=== PATIENT | female | born 1980 | race Caucasian/White ===

== ENCOUNTER 2020-03-10 14:15 | Emergency (ER) | payer BC, SELFPAY ==
[2020-03-10] VITALS (7 sets, daily range): BP systolic 125–142; BP diastolic 80–104; PULSE 88–125; RESP 12–20; TEMP 36.4–36.6; O2SAT 99–100; BMI 24.4
--- NOTE | 2020-03-10 14:27 | CT_ITS ---
STUDY: CT SOFT TISSUE NECK WITH CONTRAST REASON FOR EXAM: Female, 39 years old. SORE THROAT X3 DAYS TONGUE LESIONS RADIATION DOSAGE (If Supplied By Facility): CTDIvol = ( 11.92 ) mGy, DLP = ( 340.93 ) mGycm TECHNIQUE: The patient was scanned in a multi-detector CT scanner. High resolution transaxial imaging was performed following intravenous administration of [id number] 100ML. Sagittal and coronal images were reconstructed. Individualized dose optimization techniques were used for this CT. COMPARISON: None. FINDINGS: Normal bilateral parotid glands. Normal bilateral er physician spaces. Normal bilateral parapharyngeal spaces. Normal bilateral carotid spaces. Normal bilateral sublingual and submandibular glands and spaces. Normal visualized nasopharynx. Normal retropharyngeal space. Normal perivertebral space. Normal visualized bilateral faucial tonsils. Dental hardware causing artifact limiting visualization of the common and oropharynx. Prominent right submandibular node measuring 1.2 cm. There is no demonstrated solid or cystic mass lesion. There is no abnormal contrast enhancement. Normal epiglottis, bilateral vallecula and hypopharynx. The pre-epiglottic and paraglottic adipose spaces are normal. Normal visualized bilateral piriform sinuses, aryepiglottic folds, vocal cords, and arytenoid-cricoid articulations. Normal subglottic trachea. Normal bilateral lobes of the thyroid gland. Normal visualized pulmonary apices. Normal visualized paranasal sinuses. Normal visualized cervical spine. CT/Soft Tissue Neck WITH Contrast IMPRESSION: No acute pathology is noted of the soft tissues of the neck. Limited visualization of the tongue and oropharynx due to artifact from dental hardware. Prominent right submandibular node. Electronically Signed: Eliecer Velázquez DO at 16:13 EST Tel [phone], Service support ,
--- NOTE | 2020-03-10 14:29 | ED.DCSUM_ITS ---
History of Present Illness Chief Complaint: General Illness Informant: Patient Onset: Days Context: Gradual Onset Timing: Continuous Current Severity: Moderate Maximum Severity: Moderate Narrative: The patient is an otherwise healthy 39-year-old female who is on no daily medications who presents to the emergency department from urgent care with multiple complaints. Patient states that she has had UTI type symptoms for the past 3 days. She states that over the past 2 days, she has had a lot of pain in her tongue and has noticed some lesions. She states she had a sore throat and some difficulty swallowing. She does admit to some low-grade fevers. She denies change in voice. She denies trouble laying flat. She states that they did get a urine which was positive for multiple things and she was sent over for further evaluation. She has no history of immunosuppression. She states she is otherwise been in her normal state of health. Prior similar symptoms: No Recent Illness/Hospitalization: No Past Medical History - Allergies and Home Meds Allergies/Adverse Reactions: Allergies No Known Allergies Allergy (Verified 03/10/20 14:20) Primary Care Physician: Dalia Reynoso,Out of [NON-STAFF] - Prior records reviewed: Yes Past Medical History: None Surgical History: noncontributory Smoking Status: Never smoker Review of Systems General: Reports: Fever. Denies: Chills, Sweats Eyes: Denies: Visual changes - bilaterally, Diplopia ENT: Reports: Sore throat. Denies: Rhinorrhea Cardiovascular: Denies: Chest pain, Palpitations Respiratory: Denies: Dyspnea, Cough, Dyspnea on exertion Gastrointestinal: Reports: Nausea. Denies: Abdominal pain, Vomiting, Diarrhea, Melena, Hematochezia Genitourinary: Reports: Dysuria. Denies: Hematuria, Frequency Musculoskeletal: Reports: Arthralgias. Denies: Back pain, Extremity Pain Skin: Denies: Rash, Wounds Neurological: Denies: Headache, Weakness, Numbness Physical Exam Vital Signs/Narrative: Vital Signs Temp Pulse Resp BP Pulse Ox 03/10/20 14:16 97.8 F 125 H 20 H 126/98 H 100 Inital Vital Signs reviewed: Yes General: Well nourished, Well developed, No Acute Distress Head: Normocephalic, Atraumatic Eyes: Perrl, EOMI ENT: Moist mucous membranes, No rhinorrhea, - - Patient does have ecchymotic are a at the left lateral aspect of the tongue base. There is also some ecchymosis in the submental space. There was no definitive abscess. The posterior oropharynx is widely patent. Neck: Supple, Nontender Cardiovascular: Regular rate, Regular rhythm, No murmurs Respiratory: No distress, CTA bilaterally, Chest nontender Abdomen: Soft, Nontender, Nondistended, Normal bowel sounds Back: Nontender, Normal Inspection Extremities: Nontender, No edema Skin: Normal color, No rash Neurological: Alert, Oriented x3, Cranial nerves II-XII grossly intact, Normal Strength, Normal Sensation Psychological: Normal affect, Normal Mood Diagnostic/Tx/Re-eval Clinical Impression(s) from Imaging Studies Soft Tissue Neck CT 03/10/20 14:27 IMPRESSION: No acute pathology is noted of the soft tissues of the neck. Limited visualization of the tongue and oropharynx due to artifact from dental hardware. Prominent right submandibular node. Electronically Signed: Eliecer Velázquez DO at 16:13 EST Tel [phone], Service support , Brain CT 03/10/20 14:46 IMPRESSION: Normal unenhanced CT scan of the brain. Electronically Signed: Eliecer Velázquez DO at 16:06 EST Tel [phone], Service support , Abnormal Lab Results 03/10/20 03/10/20 03/10/20 14:45 14:45 14:45 WBC 4.2 L RBC 4.32 Hgb 12.4 Hct 37.7 MCV 87.3 MCH 28.7 MCHC 32.9 RDW Std Deviation 48.9 H RDW Coeff of Govind 17.1 H Plt Count 88 L MPV 10.4 Immature Gran % (Auto) 0.700 Neut % (Auto) 69.8 Lymph % (Auto) 17.0 L Rains % (Auto) 10.8 H Eos % (Auto) 1.2 Baso % (Auto) 0.5 Absolute Neuts (auto) 3.0 Absolute Lymphs (auto) 0.72 L Nucleated RBC % 0 Platelet Estimate SLT DEC RBC Morphology N CHROM Anisocytosis RARE PT 12.3 INR 1.0 APTT 25.7 Sodium 135 L Potassium 2.3 L* Chloride 96 L Carbon Dioxide 29.0 Anion Gap 10 BUN 17 Creatinine 1.03 H Estim Creat Clear Calc 62.70 Est GFR (MDRD) Af Amer 76 Est GFR (MDRD) Non-Af 63 BUN/Creatinine Ratio 16.5 Glucose 154 H Calcium 9.4 Magnesium Total Bilirubin 1.50 H AST 78 H ALT 46 Alkaline Phosphatase 98 Total Protein 8.0 Albumin 4.3 Globulin 3.7 Albumin/Globulin Ratio 1.2 Serum , Qual Ethyl Alcohol 03/10/20 03/10/20 03/10/20 14:45 14:45 14:45 WBC RBC Hgb Hct MCV MCH MCHC RDW Std Deviation RDW Coeff of Govind Plt Count MPV Immature Gran % (Auto) Neut % (Auto) Lymph % (Auto) Rains % (Auto) Eos % (Auto) Baso % (Auto) Absolute Neuts (auto) Absolute Lymphs (auto) Nucleated RBC % Platelet Estimate RBC Morphology Anisocytosis PT INR APTT Sodium Potassium Chloride Carbon Dioxide Anion Gap BUN Creatinine Estim Creat Clear Calc Est GFR (MDRD) Af Amer Est GFR (MDRD) Non-Af BUN/Creatinine Ratio Glucose Calcium Magnesium 1.6 Total Bilirubin AST ALT Alkaline Phosphatase Total Protein Albumin Globulin Albumin/Globulin Ratio Serum , Qual NEGATIVE Ethyl Alcohol 5.0 - Rhythm Strip Rhythm Strip: Sinus Rhythm Rate: 80 Ectopy: None - EKG Initial EKG Interpretation: Sinus Rhythm, No Acute Injury Pattern, - - Slight U waves consistent with the patient's hypokalemia Prior: No Prior - Medical Decision Making The patient's oromucosa shows some ecchymotic areas. There is an injury to the left lateral tongue that almost looks consistent with tongue biting. She states that she had some bruising on the inside of her cheeks 2 days ago. I did review the patient's prior records through the [facility] system. She was hospitalized in the end of January for suicidal ideation and significant alcohol abuse and withdrawal. The patient was also thrombocytopenic at that point. Clinically, this does seem more consistent with a seizure. I did obtain noncontrast head CT. This was negative for acute process. CT of the soft tissues of the neck was also unremarkable for acute process. Metabolic work-up does demonstrate rather significant hypokalemia. This was replaced both orally and IV. She does have a documented urinary tract infection and I was able to review those results. Patient states she has been sober for at least 3 weeks now. I do suspect that she may have had a seizure, but this was 3 days ago and she has had no further activity. Had a long conversation with the patient. She wants to be discharged and follow-up outpatient. I do feel that this is reasonable. She is not tachycardic, hypotensive, or have any other acute abnormalities aside from her potassium which has been replaced. I will place her on antibiotics for her UTI, replacement potassium, and Pyridium. I also give her outpatient follow-up with neurology. Impression 1. Urinary tract infection 2. Hypokalemia 3. Seizure with tongue injury ED Disposition - Plan for ED Patient: Instructions: ED Seizure New Onset Unknown ..., ED Hypokalemia Prescriptions: Cephalexin [Keflex] 500 mg PO Q6 #40 cap Prescription Printed Potassium Chloride 20 meq PO BID #14 tab.er.prt Prescription Printed Phenazopyridine HCl [Pyridium] 200 mg PO BID PRN PRN #10 tab PRN Reason: Pain Prescription Printed Referrals: [facility] Doctor,Out of [NON-STAFF] - Johnny Lawrence MD [STAFF PHYSICIAN] -
[2020-03-10] MEDS: 0.9% Normal Saline 1,000 ML 1000 ML IV (14:42)
[2020-03-10] MEDS: Morphine 4 MG/ML Syringe IV (14:42)
[2020-03-10] MEDS: Ondansetron 4 MG/2 ML Vial IV (14:42)
--- NOTE | 2020-03-10 14:46 | CT_ITS ---
STUDY: CT BRAIN WITHOUT CONTRAST REASON FOR EXAM: Female, 39 years old. SORE THROAT X3 DAYS TONGUE LESIONS RADIATION DOSAGE (If Supplied By Facility): CTDIvol = ( 60.81 ) mGy, DLP = ( 998.67 ) mGycm TECHNIQUE: Transaxial CT imaging of the brain was performed without administration of intravenous contrast material. Individualized dose optimization techniques were used for this CT. COMPARISON: No relevant priors. FINDINGS: Normal soft tissue structures. Normal calvarium. Normal size ventricles and extra-axial spaces for the patient''s age. Normal white matter tracts of the cerebral hemispheres. Normal basal ganglia and thalami. Normal brainstem. Normal cerebellum. There is no intracranial hemorrhage. There are no findings of an acute ischemic infarction. Normal visualized paranasal sinuses. CT/Brain/Head without Contrast IMPRESSION: Normal unenhanced CT scan of the brain. Electronically Signed: Eliecer Velázquez DO at 16:06 EST Tel [phone], Service support ,
[2020-03-10 15:02] LABS: Absolute Lymphocyte Count 0.72 X10^3/uL (0.83-4.51); Basophil# 0.02 X10^3/uL; Basophil% 0.5 % (0-1); Eosinophil# 0.05 X10^3/uL; Eosinophils% 1.2 % (0-5); Hematocrit 37.7 % (37-47); Hemoglobin 12.4 g/dL (12.0-15.0); Lymphocyte # 0.72 X10^3/ul (4.0); Mean Corp Hgb Conc 32.9 g/dL (32-36); Mean Corpuscular Hgb 28.7 pg (27.0-32.0); Mean Corpuscular Volume 87.3 fL (81-99); Mean Platelet Vol. 10.4 fl (6.2-12.0); Monocyte# 0.46 X10^3/uL; Monocyte% 10.8 % (0-10); NRBC Flagged by Analyzer 0 % (0-5); Neutrophil # 2.96 X10^3/uL (2.7-7.7); Neutrophil % 69.8 % (47-70); POSITIVE COUNT YES; Platelet Count 88 K/mm3 (150-450); RBC Distribution Width CV 17.1 % (11.6-14.6); RBC Distribution Width SD 48.9 fl (35.1-43.9); Red Blood Count 4.32 M/mm3 (4.2-5.4); White Blood Count 4.2 K/mm3 (4.4-11.0)
[2020-03-10 15:06] LABS: Differential Indicated SCAN CRITERIA MET
[2020-03-10 15:08] LABS: Partial Thromboplast Time 25.7 Seconds (24.1-36.2); Prothrombin Time (Protime)PT. 12.3 SECONDS (11.7-14.9)
[2020-03-10 15:23] LABS: ALB/GLOB Ratio 1.2 RATIO (0.9-2.4); AST(SGOT) 78 U/L (15-37); Alanine Aminotransfer ALT/SGPT 46 U/L (13-56); Albumin, Serum 4.3 g/dL (3.2-5.0); Alkaline Phosphatase 98 U/L (45-117); Anion Gap 10 (5-15); BUN 17 mg/dL (7-18); BUN/Creat Ratio 16.5 RATIO (10-20); Calcium,Total 9.4 mg/dL (8.5-10.1); Chloride 96 mmol/L (98-107); Creatinine, Serum 1.03 mg/dL (0.55-1.02); EST Glomerular Filtration Rate 63 mL/min (>60); Est Glom Filt Rate - Afr Amer 76 mL/min (>60); Globulin 3.7 g/dL (2.2-4.2); Glucose 154 mg/dL (74-106); Internal QC Validated? YES +Cl - CLEAR BKGD; Potassium 2.3 mmol/L (3.5-5.1); Pregnancy, Serum, hCG Quali. NEGATIVE Negative; Sodium Level 135 mmol/L (136-145)
--- NOTE | 2020-03-10 15:23 | EKG12_ITS ---
Test Reason : Blood Pressure : / mmHG Vent. Rate : 091 BPM Atrial Rate : 091 BPM P-R Int : 148 ms QRS Dur : 086 ms QT Int : 370 ms P-R-T Axes : 036 027 032 degrees QTc Int : 455 ms Normal sinus rhythm Cannot rule out Anterior infarct , age undetermined Abnormal ECG Confirmed by MICHAEL MINA, ODALYS ([id number]), material expeditor KEYA MCKEON ([id number]) on 03/14/2020 9:50:25 AM Referred By: RICK Confirmed By:ODALYS RODRIGUEZ MD
[2020-03-10 15:32] LABS: Platelet Estimate SLT DEC (ADEQ)
[2020-03-10 15:33] LABS: Anisocytosis RARE; Red Cell Morphology N CHROM NORMAL (NORM C&C)
[2020-03-10] MEDS: Potassium Chloride 10mEq/100mL 10 MEQ/100 ML IV.SOLN. 100 MEQ IV BOLUS (15:42)
[2020-03-10 16:01] LABS: Magnesium 1.6 mg/dL (1.6-2.6)
== END 2020-03-10 17:39 | disposition home or self-care (01) ==
LOC: ED 15:03
PROVIDERS: Emergency Provider Emergency Medicine
DX: N39.0 Urinary tract infection, site not specified (principal); E87.6 Hypokalemia; R56.9 Unspecified convulsions; S09.93XA Unspecified injury of face, initial encounter; X58.XXXA Exposure to other specified factors, initial encounter
CPT/HCPCS: 70450; 70491; 80053; 82077; 83735; 84703; 85025; 85610; 85730; 93005; 96365; 96375; 99285; J7030; J7050; Q9967; J2405

== ENCOUNTER 2021-07-28 14:36 | Inpatient (IN) | payer BC, SELFPAY ==
[2021-07-28] VITALS (8 sets, daily range): BP systolic 102–163; BP diastolic 76–97; PULSE 85–112; RESP 16–18; TEMP 36.2–37.4; O2SAT 93–98; BMI 18.3; BMI 18.6
--- NOTE | 2021-07-28 15:00 | CT_ITS ---
STUDY: CT BRAIN WITHOUT CONTRAST REASON FOR EXAM: Female, 40 years old. seizure RADIATION DOSAGE (If Supplied By Facility): CTDIvol = ( 44.99 ) mGy, DLP = ( 745.49 ) mGycm TECHNIQUE: Transaxial CT imaging of the brain was performed without administration of intravenous contrast material. Individualized dose optimization techniques were used for this CT. COMPARISON: 03/10/2020 FINDINGS: Normal soft tissue structures. Normal calvarium. Normal size ventricles and extra-axial spaces for the patient''s age. Normal white matter tracts of the cerebral hemispheres. Normal basal ganglia and thalami. Normal brainstem. Normal cerebellum. There is no intracranial hemorrhage. There are no findings of an acute ischemic infarction. Normal visualized paranasal sinuses. CT/Brain/Head without Contrast IMPRESSION: Normal unenhanced CT scan of the brain. Electronically Signed: Ed Harp MD at 15:48 EDT ,
--- NOTE | 2021-07-28 15:01 | EDS_ITS ---
HPI History of Present Illness Chief Complaint: Substance Abuse Detail of Chief Complaint: Request for alcohol detox Informant: patient Narrative Narrative: Patient presents requesting help with alcohol detox. She states she is been drinking regularly for the last year and very heavily over the past several days. She drinks vodka. Last drink was about 2 hours ago. She is never been through a formal detox program before. She has tried to detox at home but had significant withdrawal symptoms. She does tell me that she feels that she has been having seizures the past couple of days but does not believe it is secondary to withdrawal. She has no history of seizures. Patient denies any other drug use. [facility] Medical History Alcohol abuse Medical History no medical history no medical history Home Medications NK 07/28/21 [History Last Taken Unknown] Allergy/AdvReac Type Severity Reaction Status Date / Time No Known Allergies Allergy Verified 07/28/21 14:44 Social History Smoking Status: Never smoker ROS ROS ED Constitutional Constitutional ED: Denies chills or fever(s) Eyes Eyes: Denies change in vision or discharge from eye(s) ENT ENT ED: Denies discharge from eye(s), rhinorrhea or sore throat Cardiovascular Cardiovascular: Denies chest pain or palpitations Respiratory/Chest Respiratory/Chest: Denies cough or dyspnea Gastrointestinal Gastrointestinal: Denies abdominal pain, nausea or vomiting Genitourinary Genitourinary ED: Denies difficulty urinating or dysuria Musculoskeletal Musculoskeletal: Denies back pain or extremity pain Integumentary Denies Abrasions or rash Neurologic Neurologic: Reports other Details: Seizures ; Denies headache(s) or weakness Allergic/Immunologic Allergic/Immunologic ED: Denies lip swelling or urticaria EXAM Physical Exam Const Vital Signs: 07/28/21 14:38 07/28/21 15:21 07/28/21 16:00 Temperature 97.2 F L Temperature Source Temporal Pulse Rate 110 H 85 86 Respiratory Rate 16 18 16 Blood Pressure 163/87 H 127/96 H 138/97 H Blood Pressure Mean 112 106 110 Blood Pressure Source Monitor Blood Pressure Position Semi-Fowlers Blood Pressure Location Left Arm Pulse Ox 98 94 93 Oxygen Delivery Method Room Air Room Air Room Air Positive well nourished and well developed General Appearance ED: well developed HEENT Reports moist mucous membranes Eyes PERRL and EOMs intact bilaterally Neck supple Lymph Lymphatic: no lymphadenopathy noted Chest Wall inspection of chest normal and palpation of chest normal Resp normal respiratory effort and clear to auscultation bilaterally Cardio regular rate and regular rhythm GI soft to palpation, non-tender and non-distended Neuro oriented x3 Neuro Narrative: No focal neurologic deficits. Sensorium / Orientation: alert Psych Mood & Affect: anxious Skin Lesions: no lesions Rashes: no rashes MDM MDM MDM Narrative Medical decision making narrative: Patient did sign agreement for detox program. Lab work obtained. Because she is claiming that she is been having seizures last few days head CT is ordered. Lab Data Attestation: I reviewed the patient's lab results. Labs: Laboratory Results - last 24 hr 07/28/21 07/28/21 07/28/21 15:09 15:09 15:09 WBC 3.0 L RBC 4.65 Hgb 11.4 L Hct 37.6 MCV 80.9 L MCH 24.5 L MCHC 30.3 L RDW Std Deviation 56.4 H RDW Coeff of Govind 19.6 H Plt Count 97 L MPV 8.5 Immature Gran % (Auto) 0.300 Neut % (Auto) 48.7 Lymph % (Auto) 40.9 Mathews % (Auto) 9.1 Eos % (Auto) 0.0 Baso % (Auto) 1.0 Absolute Neuts (auto) 1.5 L Absolute Lymphs (auto) 1.22 Nucleated RBC % 0 Platelet Estimate MOD DEC RBC Morphology N CHROM Hypochromasia RARE Anisocytosis RARE Microcytosis RARE Sodium 143 Potassium 3.8 Chloride 104 Carbon Dioxide 27.0 Anion Gap 12 BUN 6 L Creatinine 0.69 Estim Creat Clear Calc 84.51 Est GFR (MDRD) Af Amer 121 Est GFR (MDRD) Non-Af 100 BUN/Creatinine Ratio 8.7 L Glucose 102 Calcium 9.7 Total Bilirubin 0.60 AST 82 H ALT 60 H Alkaline Phosphatase 136 H Total Protein 8.8 H Albumin 4.3 Globulin 4.5 H Albumin/Globulin Ratio 1.0 Serum , Qual Urine Opiates Screen Urine Methadone Screen Ur Barbiturates Screen Ur Phencyclidine Scrn Ur Amphetamines Screen MDMA (Ecstasy) Screen U Benzodiazepines Scrn Urine Cocaine Screen U Cannabinoids Screen Ur Drug Screen Comment Ethyl Alcohol 422.0 H* 07/28/21 07/28/21 15:09 15:12 WBC RBC Hgb Hct MCV MCH MCHC RDW Std Deviation RDW Coeff of Govind Plt Count MPV Immature Gran % (Auto) Neut % (Auto) Lymph % (Auto) Mathews % (Auto) Eos % (Auto) Baso % (Auto) Absolute Neuts (auto) Absolute Lymphs (auto) Nucleated RBC % Platelet Estimate RBC Morphology Hypochromasia Anisocytosis Microcytosis Sodium Potassium Chloride Carbon Dioxide Anion Gap BUN Creatinine Estim Creat Clear Calc Est GFR (MDRD) Af Amer Est GFR (MDRD) Non-Af BUN/Creatinine Ratio Glucose Calcium Total Bilirubin AST ALT Alkaline Phosphatase Total Protein Albumin Globulin Albumin/Globulin Ratio Serum , Qual NEGATIVE Urine Opiates Screen NEGATIVE Urine Methadone Screen NEGATIVE Ur Barbiturates Screen NEGATIVE Ur Phencyclidine Scrn NEGATIVE Ur Amphetamines Screen NEGATIVE MDMA (Ecstasy) Screen NEGATIVE U Benzodiazepines Scrn NEGATIVE Urine Cocaine Screen NEGATIVE U Cannabinoids Screen NEGATIVE Ur Drug Screen Comment Ethyl Alcohol Radiography Diagnostic Testing: Clinical Impression(s) from Imaging Studies Brain CT 07/28/21 15:00 IMPRESSION: Normal unenhanced CT scan of the brain. Electronically Signed: Ed Harp MD at 15:48 EDT , Treatment and Re-Evaluation Narrative: I was asked by nursing to present to the room while we are awaiting test results. Patient was having significant spasms and pulling her knees up to her chest and stretching them out. Heart rate went up to the 140s. She was alert and answering questions throughout the episode and this behavior was not consistent with seizure. Through slow breathing her heart rate did improve. She was given 0.5 mg of Ativan. Lab work is reviewed. Patient has mild anemia with a hemoglobin of 11.4. Chemistry studies reveal an AST of 82 and ALT of 60. Alk phos is 136. EtOH is 422. test is negative and urine tox screen is negative. Head CT is normal. Patient will be discussed with hospitalist for admission. Discharge Plan Triage Chief Complaint: Substance Abuse ED Provider: Sahra Cobb Dx/Rx/DC Orders Clinical Impression: ETOH abuse, Desire for detoxification Prescriptions: No Action NK RF: 0 Referrals: BRADLEY GUTIÉRREZ [Other] Disposition Disposition: Acute Care Hospital [facility]
[2021-07-28 15:29] LABS: Absolute Lymphocyte Count 1.22 X10^3/uL (0.83-4.51); Absolute Neutrophil Count 1.5 X10^3/uL (2.0-7.7); Basophil# 0.03 X10^3/uL; Hematocrit 37.6 % (37-47); Hemoglobin 11.4 g/dL (12.0-15.0); Lymphocyte # 1.22 X10^3/ul (0.83-4.51); Lymphocyte % 40.9 % (19-41); Mean Corp Hgb Conc 30.3 g/dL (32-36); Mean Corpuscular Hgb 24.5 pg (27.0-32.0); Mean Corpuscular Volume 80.9 fL (81-99); Mean Platelet Vol. 8.5 fl (6.2-12.0); Monocyte# 0.27 X10^3/uL; Monocyte% 9.1 % (0-10); NRBC Flagged by Analyzer 0 % (0-5); Neutrophil # 1.45 X10^3/uL (2.7-7.7); Neutrophil % 48.7 % (47-70); POSITIVE COUNT YES; Platelet Count 97 K/mm3 (150-450); RBC Distribution Width CV 19.6 % (11.6-14.6); RBC Distribution Width SD 56.4 fl (35.1-43.9); Red Blood Count 4.65 M/mm3 (4.2-5.4)
[2021-07-28 15:55] LABS: Differential Indicated SCAN CRITERIA MET
[2021-07-28] MEDS: LORazepam 2 MG/ML Syringe 0.5 MG IV (15:58)
[2021-07-28 16:00] LABS: Amphetamine Urine VISTA NEGATIVE (<1000 ng/mL); Barbiturate Urine VISTA NEGATIVE (< 200 ng/mL); Benzodiazepine Urine VISTA NEGATIVE (< 200 ng/mL); Cocaine Urine VISTA NEGATIVE (< 300 ng/mL); Ecstacy Urine VISTA NEGATIVE (< 500 ng/mL); Methadone Urine VISTA NEGATIVE (< 300 ng/mL); PCP Urine VISTA NEGATIVE (< 25 ng/mL); THC Urine VISTA NEGATIVE (< 50 ng/mL); Vista UDS pH Range 5
[2021-07-28 16:01] LABS: Anisocytosis RARE; Hypochromasia RARE; Microcytosis RARE; Platelet Estimate MOD DEC (ADEQ); Red Cell Morphology N CHROM NORMAL (NORM C&C)
[2021-07-28 16:02] LABS: AST(SGOT) 82 U/L (15-37); Alanine Aminotransfer ALT/SGPT 60 U/L (13-56); Albumin, Serum 4.3 g/dL (3.2-5.0); Alkaline Phosphatase 136 U/L (45-117); Anion Gap 12 (5-15); BUN 6 mg/dL (7-18); BUN/Creat Ratio 8.7 RATIO (10-20); Calcium,Total 9.7 mg/dL (8.5-10.1); Chloride 104 mmol/L (98-107); Creatinine, Serum 0.69 mg/dL (0.55-1.02); EST Glomerular Filtration Rate 100 mL/min (>60); Est Glom Filt Rate - Afr Amer 121 mL/min (>60); Estimated Creatinine Clearance 84.51 ml/min; Globulin 4.5 g/dL (2.2-4.2); Glucose 102 mg/dL (74-106); Potassium 3.8 mmol/L (3.5-5.1); Protein, Total 8.8 g/dL (6.4-8.2); Sodium Level 143 mmol/L (136-145)
[2021-07-28 16:09] LABS: Internal QC Validated? YES +Cl - CLEAR BKGD; Pregnancy, Serum, hCG Quali. NEGATIVE Negative
--- NOTE | 2021-07-28 16:27 | CM.ED ---
Social Work Note Reason for referral: Detox SW met with pt. Pt confirms she is here for Detox from Alcohol. Pt states that she drinks fifth of vodka 2-3 times a week. SW placed a call to Treatment Navigator and spoke with Teresa and updated her on referral. Norma Vega [employer], [employer]SE OPERATOR
--- NOTE | 2021-07-28 16:59 | HP.PCM.HOS_ITS ---
HPI - General HPI Narrative MANDEEP MATAMOROS, is a 40 F who presented department was coming hospital on 07/28/2021 for alcohol detox. The patient indicates that she typically had not been a heavy drinker at baseline however over the last week she has been excessively binge drinking drinking probably 2 L of vodka a day. 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 She states she was triggered by recent divorce and is not coping well with depression. She has no suicidal thoughts or ideation. She denies any other medical issues and takes no medications at baseline. She has never been through detox previously. She denies any tobacco abuse or use of any other drugs. Patient's only complaint is some intermittent twitching in her arm. This was noted by the ER physician and she indicated that this did not appear to be consistent with any type of seizure issue. The patient has no other complaints is not currently going through active withdrawal as she is currently intoxicated. Vital signs emergency department show a temperature of 97.2, pulse of 112, blood pressure 102/76, respiratory 16, oxygen saturations are 93% on room air. Her CBC shows a leukopenia with a white count of 3.0, mild anemia with a hemoglobin of 11.4, this is slightly microcytic, platelet count of 97,000. This appears chronic. Her chemistry panel is overall unremarkable other than elevated liver enzymes with an ALT of 60 and AST of 82 consistent with alcohol toxicity. Serum test is negative. Tox screen is negative. Serum alcohol level is 422. A CT of her head was performed and was negative for any acute findings. [facility] Medical History Alcohol abuse Medical History no medical history Home Medications NK 07/28/21 [History Last Taken Unknown] Allergy/AdvReac Type Severity Reaction Status Date / Time No Known Allergies Allergy Verified 07/28/21 14:44 Family History (Updated 07/28/21 @ 17:[address] 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 Smoking Status: Never smoker alcohol intake: current alcohol intake frequency: 3 or more drinks per day Previous attempts at quittin details: Patient is currently drinking approximately 2 L of vodka a day substance use type: does not use ROS Constitutional Constitutional: Denies anorexia, change in weight, chills, fatigue, fever(s), malaise, night sweats, weakness or other Eyes Eyes: Denies blurry vision, change in eye color, change in vision, discharge from eye(s), double vision, erythema, eye pain, loss of vision or other ENT HEENT: Denies abnormal hearing, dysphagia, ear pain, epistaxis, headache(s), hearing loss, nasal congestion, nasal discharge, post nasal drip, sinus pressure, sore throat or other Cardiovascular Cardiovascular: Denies chest pain, claudication, dyspnea on exertion, edema, lightheadedness, orthopnea, palpitations, paroxysmal nocturnal dyspnea, rapid heart rate, syncope or other Respiratory/Chest Respiratory/Chest: Denies cough, dyspnea, excessive phlegm production, hemoptysis, productive cough, shortness of breath at rest, shortness of breath with exertion, wheezing or other Gastrointestinal Gastrointestinal: Denies abdominal pain, coffee ground emesis, constipation, diarrhea, dyspepsia, hematemesis, hematochezia, loose stools, melena, nausea, vomiting or other Genitourinary Genitourinary: Denies burning urination, difficulty urinating, dysuria, hematuria, nocturia, urinary frequency, urinary hesitancy, urinary incontinence, urinary urgency or other Musculoskeletal Musculoskeletal: Denies arthralgias, back pain, joint pain, joint stiffness, joint swelling, myalgias, neck pain or other Neurologic Neurologic: Denies abnormal gait, abnormal speech, confusion, disequilibrium, dizziness, focal weakness, headache(s), numbness, paresthesias, seizure-like activity, seizures, syncope, tingling, tremor(s) or other Psychiatric Psychiatric: Denies anxiety, depression, homicidal ideation, suicidal ideation or other Endocrine Endocrinology: Denies change in body appearance, cold intolerance, excessive sweating, heat intolerance, polydipsia, polyuria or other Hematologic/Lymphatic Hematologic/Lymphatic: Denies anemia, easy bleeding, easy bruising, lymphadenopathy or other Allergic/Immunologic Allergic/Immunologic: Denies rhinitis, hives, eczemia, asthma or other Vital Signs Vital Signs Vital Signs: 07/28/21 14:38 07/28/21 15:21 07/28/21 16:00 Temperature 97.2 F L Temperature Source Temporal Pulse Rate 110 H 85 86 Respiratory Rate 16 18 16 Blood Pressure 163/87 H 127/96 H 138/97 H Blood Pressure Mean 112 106 110 Blood Pressure Source Monitor Blood Pressure Position Semi-Fowlers Blood Pressure Location Left Arm Pulse Ox 98 94 93 Oxygen Delivery Method Room Air Room Air Room Air Weight Weight: 49.895 kg Body Mass Index (BMI) 18.3 Physical Exam Const alert, oriented x3 and no apparent distress Constitutional Narrative: Thin middle-aged white female lying in bed, appears comfortable, nontoxic, patient is considerably intoxicated however she is alert and oriented and able to interact appropriately General Appearance: cooperative HEENT normocephalic, head/scalp atraumatic, hearing grossly normal bilaterally, moist oral mucous membranes and dentition normal Eyes PERRL, EOMs intact bilaterally and conjunctivae normal Eyes Narrative: Bilateral scleral injection with no icterus Neck no lymphadenopathy, supple, no JVD and no carotid bruits Neck Narrative: Trachea midline, no no thyroid enlargement Resp normal respiratory effort, no retractions, no use of accessory muscles and clear to auscultation bilaterally Auscultation: Negative for crackles, rales, rhonchi or wheezes Cardio regular rhythm, S1 normal heart sound, S2 normal heart sound, no murmurs, no rub, no gallops, no clicks and no JVD Cardio Narrative: Mild tachycardia GI normal to inspection, nondistended, normoactive bowel sounds, soft to palpation and non-distended; Negative for hepatosplenomegaly GI Narrative: Mild tenderness right upper quadrant Extremity no clubbing, cyanosis or edema Peripheral Pulses: Yes pulses 2+ throughout Skin no rashes or lesions noted, no wounds, skin turgor normal, no jaundice, no petechiae and no mottling Neuro oriented x3, CN's II-XII intact bilaterally, moves all extremities and no focal motor deficits Neuro Narrative: No sensory deficits Sensorium / Orientation: awake and alert Speech: speech normal Motor Exam: strength 5/5 throughout Psych Psych Narrative: Affect is flat but eye contact is good Mood & Affect: depressed Results Lab / Micro Data Result Diagrams: 07/28/21 15:09 07/28/21 15:09 Labs: Laboratory Results - last 24 hr 07/28/21 15:09: WBC 3.0 L, RBC 4.65, Hgb 11.4 L, Hct 37.6, MCV 80.9 L, MCH 24.5 L, MCHC 30.3 L, RDW Std Deviation 56.4 H, RDW Coeff of Govind 19.6 H, Plt Count 97 L, MPV 8.5, Immature Gran % (Auto) 0.300, Neut % (Auto) 48.7, Lymph % (Auto) 40.9, [place] % (Auto) 9.1, Eos % (Auto) 0.0, Baso % (Auto) 1.0, Absolute Neuts (au to) 1.5 L, Absolute Lymphs (auto) 1.22, Nucleated RBC % 0, Platelet Estimate MOD DEC, RBC Morphology N CHROM, Hypochromasia RARE, Anisocytosis RARE, Microcytosis RARE 07/28/21 15:09: Sodium 143, Potassium 3.8, Chloride 104, Carbon Dioxide 27.0, Anion Gap 12, BUN 6 L, Creatinine 0.69, Estim Creat Clear Calc 84.51, Est GFR (MDRD) Af Amer 121, Est GFR (MDRD) Non-Af 100, BUN/Creatinine Ratio 8.7 L, Glucose 102, Calcium 9.7, Total Bilirubin 0.60, AST 82 H, ALT 60 H, Alkaline Phosphatase 136 H, Total Protein 8.8 H, Albumin 4.3, Globulin 4.5 H, Albumin/Globulin Ratio 1.0 07/28/21 15:09: Ethyl Alcohol 422.0 H* 07/28/21 15:09: Serum , Qual NEGATIVE 07/28/21 15:12: Urine Opiates Screen NEGATIVE, Urine Methadone Screen NEGATIVE, Ur Barbiturates Screen NEGATIVE, Ur Phencyclidine Scrn NEGATIVE, Ur Amphetamines Screen NEGATIVE, MDMA (Ecstasy) Screen NEGATIVE, U Benzodiazepines Scrn NEGATIVE, Urine Cocaine Screen NEGATIVE, U Cannabinoids Screen NEGATIVE, Ur Drug Screen Comment Radiology Impression Brain CT 07/28/21 15:00 IMPRESSION: Normal unenhanced CT scan of the brain. Electronically Signed: Ed Harp MD at 15:48 EDT , Assessment & Plan Assessment/Plan (1) ETOH abuse: (2) Desire for detoxification: (3) Pancytopenia: (4) Alcoholic hepatitis: (5) Acute alcohol intoxication: PLAN: Chronic alcohol abuse with acute intoxication and desire for detoxification -Currently no signs of withdrawal however the patient blood alcohol level is 422 -Is currently drinking -Last drink was 2 hours prior to presentation -Patient has never been through formal detox -Initiate phenobarbital taper -Thiamine and folate -Supportive medications for symptom management -Consultation to 180 Pancytopenia -Suspect related to chronic alcohol use and suppression of marrow and production related to her alcohol use -We will monitor to document stability -Count should improve with alcohol cessation -We will check iron studies since this is a microcytosis Alcoholic hepatitis -Mild transaminase elevations -Repeat CMP in a.m. DVT prophylaxis -Low risk -Early ambulation protocol CODE STATUS -Full code Charges/Coding Visit Charges Inpatient E&M: 34459 Init Hosp L3
[2021-07-28] MEDS: LORazepam 2 MG/ML Syringe IV (18:51)
[2021-07-28] MEDS: Acetaminophen 325 MG Tablet 650 MG PO (18:51)
[2021-07-28] MEDS: Phenobarbital 32.4 MG Tablet 64.8 MG PO ×2 (18:51→23:55)
[2021-07-28] MEDS: Dicyclomine 10 MG Capsule 20 MG PO (18:52)
[2021-07-28 19:14] LABS: Ferritin 37 ng/mL (8-252); Iron 48 ug/dL (50-170); Iron Binding Capacity,Total 470 ug/dL (250-450); PERCENT IRON SATURATION 10.2 % (15.0-55.0)
[2021-07-29 02:56] VITALS: BP 139/100; PULSE 118; RESP 16; TEMP 37.4; O2SAT 96
[2021-07-29] MEDS: LORazepam 2 MG/ML Syringe IV (03:17)
[2021-07-29] MEDS: Phenobarbital 32.4 MG Tablet 64.8 MG PO ×6 (03:18→23:31)
[2021-07-29] MEDS: Gabapentin 300 MG Capsule PO (03:18)
[2021-07-29] MEDS: Acetaminophen 325 MG Tablet 650 MG PO (03:18)
[2021-07-29] MEDS: 0.9% Saline Lock 10 ML Syringe IV ×3 (03:21→15:15)
[2021-07-29 05:41] LABS: Absolute Lymphocyte Count 0.59 X10^3/uL (0.83-4.51); Absolute Neutrophil Count 3.4 X10^3/uL (2.0-7.7); Basophil# 0.02 X10^3/uL; Basophil% 0.5 % (0-1); Differential Indicated SCAN CRITERIA MET; Eosinophil# 0.01 X10^3/uL; Eosinophils% 0.2 % (0-5); Hematocrit 32.2 % (37-47); Hemoglobin 9.9 g/dL (12.0-15.0); Lymphocyte # 0.59 X10^3/ul (0.83-4.51); Lymphocyte % 13.6 % (19-41); Mean Corp Hgb Conc 30.7 g/dL (32-36); Mean Corpuscular Hgb 24.6 pg (27.0-32.0); Mean Corpuscular Volume 80.1 fL (81-99); Mean Platelet Vol. 9.6 fl (6.2-12.0); Monocyte% 6.9 % (0-10); NRBC Flagged by Analyzer 0 % (0-5); Neutrophil # 3.38 X10^3/uL (2.7-7.7); Neutrophil % 78.1 % (47-70); POSITIVE COUNT YES; POSITIVE DIFFERENTIAL YES; Platelet Count 57 K/mm3 (150-450); RBC Distribution Width CV 18.7 % (11.6-14.6); RBC Distribution Width SD 54.5 fl (35.1-43.9); Red Blood Count 4.02 M/mm3 (4.2-5.4); White Blood Count 4.3 K/mm3 (4.4-11.0)
[2021-07-29 06:07] LABS: ALB/GLOB Ratio 0.9 RATIO (0.9-2.4); AST(SGOT) 61 U/L (15-37); Alanine Aminotransfer ALT/SGPT 47 U/L (13-56); Albumin, Serum 3.5 g/dL (3.2-5.0); Alkaline Phosphatase 104 U/L (45-117); Anion Gap 7 (5-15); BUN 9 mg/dL (7-18); BUN/Creat Ratio 15.7 RATIO (10-20); Chloride 99 mmol/L (98-107); Creatinine, Serum 0.57 mg/dL (0.55-1.02); EST Glomerular Filtration Rate 123 mL/min (>60); Est Glom Filt Rate - Afr Amer 148 mL/min (>60); Estimated Creatinine Clearance 104.16 ml/min; Glucose 102 mg/dL (74-106); Potassium 3.6 mmol/L (3.5-5.1); Protein, Total 7.5 g/dL (6.4-8.2); Sodium Level 134 mmol/L (136-145); Thyroid Stim Hormone (TSH) 0.94 uIU/mL (0.358-3.74)
[2021-07-29 06:10] LABS: Differential Comment SCANNED; Platelet Estimate MKD DEC (ADEQ)
[2021-07-29 06:59] VITALS: BP 142/98; PULSE 117; RESP 18; TEMP 36.9; O2SAT 97
[2021-07-29] MEDS: hydrOXYzine PAM 25 MG Capsule 50 MG PO ×2 (07:05→18:19)
--- NOTE | 2021-07-29 10:40 | PN.HOSP_ITS ---
Subjective Subjective Patient reports she is feeling better this morning than yesterday. She is aware she has baseline thrombocytopenia and indicates this is never been worked up in the past. She does complain of some tremor but denies any nausea vomiting or diarrhea. Patient indicates she has pretty heavy periods and this does explain why she is probably iron deficient. I did discuss IV iron administration and the plan we will discharge her on oral iron. Objective Data Objective Data Vital Signs: Vital Signs Temp Pulse Resp BP Pulse Ox 98.4 F 117 H 18 142/98 H 97 07/29/21 06:59 07/29/21 06:59 07/29/21 06:59 07/29/21 06:59 07/29/21 06:59 Oxygen Delivery Method Room Air Weight: 50.8 kg Body Mass Index (BMI) 18.6 Medical Nutrition Assessment Dietitian: Malnutrition Criteria Met Start: 07/29/21 09:45 Freq: Status: Active Protocol: Document 07/29/21 09:46 AG (Rec: 07/29/21 09:46 [id number]) Nutrition Malnutrition Evidence of Malnutrition Exists Yes Malnutrition (severe): Social/Behavioral/ Environmental Evidenced By Suboptimal Energy Intake ( Severe),Weight Loss (Severe) Clinical Problem Chronic Disease or Condition Related Malnutrition Etiology severe malnutrition in context of social/behavioral circumstances r/t inadequate protein-energy intake d/t depression, alcohol abuse Signs/Symptoms as evidenced by estimated PO intake meeting <75% of estimated energy needs >3 months; reported unintentional wt loss of 60#/34% x 6 months Status Active Problem Recommendation Dietitian Recommendations/Changes continue regular diet as tolerated; will add 120mL ensure compact TID w/ meals for addtional calories/protein if consumed. Lab / Micro Data Result Diagrams: 07/29/21 07:42 07/29/21 05:32 Labs: Laboratory Results - last 24 hr 07/28/21 15:09: WBC 3.0 L, RBC 4.65, Hgb 11.4 L, Hct 37.6, MCV 80.9 L, MCH 24.5 L, MCHC 30.3 L, RDW Std Deviation 56.4 H, RDW Coeff of Govind 19.6 H, Plt Count 97 L, MPV 8.5, Immature Gran % (Auto) 0.300, Neut % (Auto) 48.7, Lymph % (Auto) 40.9, [place] % (Auto) 9.1, Eos % (Auto) 0.0, Baso % (Auto) 1.0, Absolute Neuts (auto) 1.5 L, Absolute Lymphs (auto) 1.22, Nucleated RBC % 0, Platelet Estimate MOD DEC, RBC Morphology N CHROM, Hypochromasia RARE, Anisocytosis RARE, Microcytosis RARE 07/28/21 15:09: Sodium 143, Potassium 3.8, Chloride 104, Carbon Dioxide 27.0, Anion Gap 12, BUN 6 L, Creatinine 0.69, Estim Creat Clear Calc 84.51, Est GFR (MDRD) Af Amer 121, Est GFR (MDRD) Non-Af 100, BUN/Creatinine Ratio 8.7 L, Glucose 102, Calcium 9.7, Total Bilirubin 0.60, AST 82 H, ALT 60 H, Alkaline Phosphatase 136 H, Total Protein 8.8 H, Albumin 4.3, Globulin 4.5 H, Albumin/Globulin Ratio 1.0 07/28/21 15:09: Ethyl Alcohol 422.0 H* 07/28/21 15:09: Serum , Qual NEGATIVE 07/28/21 15:09: Iron 48 L, TIBC 470 H, Iron Saturation 10.2 L, Ferritin 37 07/28/21 15:12: Urine Opiates Screen NEGATIVE, Urine Methadone Screen NEGATIVE, Ur Barbiturates Screen NEGATIVE, Ur Phencyclidine Scrn NEGATIVE, Ur Amphetamines Screen NEGATIVE, MDMA (Ecstasy) Screen NEGATIVE, U Benzodiazepines Scrn NEGATIVE, Urine Cocaine Screen NEGATIVE, U Cannabinoids Screen NEGATIVE, Ur Drug Screen Comment 07/29/21 05:32: WBC 4.3 L, RBC 4.02 L, Hgb 9.9 L, Hct 32.2 L, MCV 80.1 L, MCH 24.6 L, MCHC 30.7 L, RDW Std Deviation 54.5 H, RDW Coeff of Govind 18.7 H, Plt Count 57 L, MPV 9.6, Immature Gran % (Auto) 0.700, Neut % (Auto) 78.1 H, Lymph % (Auto) 13.6 L, [place] % (Auto) 6.9, Eos % (Auto) 0.2, Baso % (Auto) 0.5, Absolute Neuts (auto) 3.4, Absolute Lymphs (auto) 0.59 L, Nucleated RBC % 0, Differential Comment SCANNED, Diff Path Review May foll, Platelet Estimate MKD 07/29/21 05:32: Sodium 134 L, Potassium 3.6, Chloride 99, Carbon Dioxide 28.0, Anion Gap 7, BUN 9, Creatinine 0.57, Estim Creat Clear Calc 104.16, Est GFR (MDRD) Af Amer 148, Est GFR (MDRD) Non-Af 123, BUN/Creatinine Ratio 15.7, Glucose 102, Calcium 9.0, Total Bilirubin 1.00, AST 61 H, ALT 47, Alkaline Phosphatase 104, Total Protein 7.5, Albumin 3.5, Globulin 4.0, Albumin/Globulin Ratio 0.9, TSH 0.94 07/29/21 07:42: Hgb 10.0 L Radiography Diagnostic Testing: Radiology Impression Brain CT 07/28/21 15:00 IMPRESSION: Normal unenhanced CT scan of the brain. Electronically Signed: Ed Harp MD at 15:48 EDT , Physical Exam Const alert, oriented x3 and no apparent distress Constitutional Narrative: Thin middle-aged white female lying in bed, appears comfortable, nontoxic, sitting up, has just eaten breakfast, appears comfortable nontoxic General Appearance: cooperative Exam Limitations: no limitations Nutritional Appearance: thin HEENT normocephalic, head/scalp atraumatic, hearing grossly normal bilaterally, moist oral mucous membranes and dentition normal Head and Scalp: normocephalic Resp normal respiratory effort, no retractions, no use of accessory muscles and clear to auscultation bilaterally Auscultation: Negative for crackles, rales, rhonchi or wheezes Cardio regular rhythm, S1 normal heart sound, S2 normal heart sound, no murmurs, no rub, no gallops, no clicks and no JVD Cardio Narrative: Remains mildly tachycardic GI normal to inspection, nondistended, normoactive bowel sounds, soft to palpation and non-distended; Negative for hepatosplenomegaly GI Narrative: Mild tenderness right upper quadrant Extremity no clubbing, cyanosis or edema Peripheral Pulses: Yes pulses 2+ throughout Neuro oriented x3, moves all extremities and no focal motor deficits Sensorium / Orientation: awake and alert Speech: speech normal Assessment & Plan Assessment/Plan (1) ETOH abuse: (2) Desire for detoxification: (3) Pancytopenia: (4) Alcoholic hepatitis: (5) Iron deficiency anemia: PLAN: Chronic alcohol abuse with acute intoxication and desire for detoxification -blood alcohol level was 422 on admission -Last drink was 2 hours prior to presentation -Patient has never been through formal detox -Cont Phenobarb -Thiamine and folate -Supportive medications for symptom management -180 eval is pending Pancytopenia -Suspect related to chronic alcohol use and suppression of marrow and production related to her alcohol use -We will monitor to document stability -Counts should improve with alcohol cessation -Patient indicates she is aware she has chronic thrombocytopenia but this has never had a work-up in the past -No acute need for work-up however I do recommend she follow-up with hematology at discharge Iron deficiency anemia -Patient indicates she has heavy periods -IV iron initiated -We will discharge with p.o. iron supplementation -Considerable drop in hemoglobin since admission however repeat was stable -Heme follow up at discharge Alcoholic hepatitis -resolved DVT prophylaxis -Low risk -Early ambulation protocol CODE STATUS -Full code Charges/Coding Visit Charges Inpatient E&M: 99576 Subs Hosp L2
[2021-07-29 10:53] VITALS: BP 123/95; PULSE 118; RESP 16; TEMP 36.9; O2SAT 99
[2021-07-29] MEDS: Thiamine Hydrochloride 100 MG Tablet PO (10:55)
[2021-07-29] MEDS: Folic Acid 1 MG Tablet PO (10:55)
--- NOTE | 2021-07-29 12:56 | ADDICTION ---
This worker met with pt to complete ASAM, MSE, AUDIT, DUDIT and D/C planning. Pt identifies problem behavior and agrees to follow up with [facility] in [place]. She did not report a need for transportation upon d/c.
[2021-07-29 15:13] VITALS: BP 137/101; PULSE 105; RESP 16; TEMP 37.2; O2SAT 95
[2021-07-29 18:16] VITALS: BP 131/103; PULSE 107; RESP 16; TEMP 37.4; O2SAT 100
[2021-07-29] MEDS: traZODone 100 MG Tablet PO (23:31)
[2021-07-29 23:42] VITALS: BP 138/94; PULSE 110; RESP 18; TEMP 36.9; O2SAT 99
[2021-07-30 03:00] VITALS: BP 122/80; PULSE 114; RESP 18; TEMP 36.9; O2SAT 99
[2021-07-30] MEDS: hydrOXYzine PAM 25 MG Capsule 50 MG PO ×4 (03:16→22:50)
[2021-07-30] MEDS: Phenobarbital 32.4 MG Tablet 64.8 MG PO ×6 (03:16→22:49)
[2021-07-30 07:00] VITALS: BP 118/83; PULSE 106; RESP 18; TEMP 37; O2SAT 98
[2021-07-30] MEDS: Thiamine Hydrochloride 100 MG Tablet PO (08:37)
[2021-07-30] MEDS: Folic Acid 1 MG Tablet PO (08:37)
[2021-07-30 09:59] VITALS: BP 126/105; PULSE 65; RESP 18; TEMP 37; O2SAT 100
[2021-07-30] MEDS: LORazepam 1 MG Tablet 2 MG PO (11:26)
--- NOTE | 2021-07-30 12:34 | PCM.PN.HOSP ---
Subjective Subjective Patient is feeling much better today. Still fine tremor but nausea has resolved. Is hoping to be able to go home tomorrow if she feels well enough. Has had no issues with IV iron. Objective Data Objective Data Vital Signs: Vital Signs Temp Pulse Resp BP Pulse Ox 98.6 F 65 18 126/105 H 100 07/30/21 09:59 07/30/21 09:59 07/30/21 09:59 07/30/21 09:59 07/30/21 09:59 Oxygen Delivery Method Room Air Weight: 50.8 kg Body Mass Index (BMI) 18.6 Intake & Output: Intake and Output for Last 24 Hours 07/28/21 07/29/21 07/30/21 23:59 23:59 23:59 Intake Total 1178 / 1178 1120 / 1120 Balance 1178 / 1178 1120 / 1120 Medical Nutrition Assessment Dietitian: Malnutrition Criteria Met Start: 07/29/21 09:45 Freq: Status: Active Protocol: Document 07/29/21 09:46 AG (Rec: 07/29/21 09:46 AG [id number]) Nutrition Malnutrition Evidence of Malnutrition Exists Yes Malnutrition (severe): Social/Behavioral/ Environmental Evidenced By Suboptimal Energy Intake ( Severe),Weight Loss (Severe) Clinical Problem Chronic Disease or Condition Related Malnutrition Etiology severe malnutrition in context of social/behavioral circumstances r/t inadequate protein-energy intake d/t depression, alcohol abuse Signs/Symptoms as evidenced by estimated PO intake meeting <75% of estimated energy needs >3 months; reported unintentional wt loss of 60#/34% x 6 months Status Active Problem Recommendation Dietitian Recommendations/Changes continue regular diet as tolerated; will add 120mL ensure compact TID w/ meals for addtional calories/protein if consumed. 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, patient appears comfortable nontoxic, mood is much improved General Appearance: cooperative Exam Limitations: no limitations Nutritional Appearance: thin HEENT normocephalic, head/scalp atraumatic, hearing grossly normal bilaterally, moist oral mucous membranes and dentition normal Head and Scalp: normocephalic Resp normal respiratory effort, no retractions, no use of accessory muscles and clear to auscultation bilaterally Auscultation: Negative for crackles, rales, rhonchi or wheezes Cardio regular rhythm, S1 normal heart sound, S2 normal heart sound, no murmurs, no rub, no gallops, no clicks and no JVD Cardio Narrative: Remains mildly tachycardic GI normal to inspection, nondistended, normoactive bowel sounds, soft to palpation, non-tender and non-distended; Negative for hepatosplenomegaly Extremity no clubbing, cyanosis or edema Peripheral Pulses: Yes pulses 2+ throughout Neuro oriented x3, moves all extremities and no focal motor deficits Neuro Narrative: No sensory deficits Sensorium / Orientation: awake and alert Speech: speech normal Assessment & Plan Assessment/Plan (1) ETOH abuse: (2) Desire for detoxification: (3) Pancytopenia: (4) Alcoholic hepatitis: (5) Iron deficiency anemia: PLAN: Chronic alcohol abuse with acute intoxication and desire for detoxification -blood alcohol level was 422 on admission -Last drink was 2 hours prior to presentation -Patient has never been through formal detox -Cont Phenobarb -Thiamine and folate -Supportive medications for symptom management -180 eval is complete and plan is for outpatient follow-up at 180 in [place] after discharge -Dissipate discharge 07/31/2021 Pancytopenia -Suspect related to chronic alcohol use and suppression of marrow and production related to her alcohol use -We will monitor to document stability -Counts should improve with alcohol cessation -Patient indicates she is aware she has chronic thrombocytopenia but this has never had a work-up in the past -No acute need for work-up however I do recommend she follow-up with hematology at discharge--> this has been discussed with the patient and referral has been made on discharge paperwork Iron deficiency anemia -Patient indicates she has heavy periods -IV iron initiated day 2 of 3 -We will discharge with p.o. iron supplementation--> prescription has been sent -Considerable drop in hemoglobin since admission however repeat was stable -CBC in a.m. -Heme follow up at discharge Alcoholic hepatitis -resolved DVT prophylaxis -Low risk -Early ambulation protocol CODE STATUS -Full code Charges/Coding Visit Charges Inpatient E&M: 44826 Subs Hosp L2
[2021-07-30 14:43] VITALS: BP 105/73; PULSE 112; RESP 18; TEMP 36.5; O2SAT 98
[2021-07-30] MEDS: Acetaminophen 325 MG Tablet 650 MG PO (14:49)
[2021-07-31 03:30] VITALS: BP 115/83; PULSE 106; RESP 16; TEMP 36.8; O2SAT 97
[2021-07-31] MEDS: Phenobarbital 32.4 MG Tablet 64.8 MG PO ×3 (03:49→14:31)
[2021-07-31] MEDS: hydrOXYzine PAM 25 MG Capsule 50 MG PO ×2 (03:50→12:26)
[2021-07-31 06:18] LABS: Absolute Lymphocyte Count 0.61 X10^3/uL (0.83-4.51); Absolute Neutrophil Count 2.7 X10^3/uL (2.0-7.7); Basophil# 0.03 X10^3/uL; Basophil% 0.8 % (0-1); Eosinophil# 0.09 X10^3/uL; Eosinophils% 2.4 % (0-5); Hematocrit 30.2 % (37-47); Hemoglobin 9.2 g/dL (12.0-15.0); Lymphocyte # 0.61 X10^3/ul (0.83-4.51); Lymphocyte % 16.5 % (19-41); Mean Corp Hgb Conc 30.5 g/dL (32-36); Mean Corpuscular Hgb 24.9 pg (27.0-32.0); Mean Corpuscular Volume 81.6 fL (81-99); Mean Platelet Vol. 11.1 fl (6.2-12.0); Monocyte# 0.21 X10^3/uL; Monocyte% 5.7 % (0-10); NRBC Flagged by Analyzer 0.5 % (0-5); Neutrophil # 2.69 X10^3/uL (2.7-7.7); POSITIVE COUNT YES; RBC Distribution Width CV 18.8 % (11.6-14.6); RBC Distribution Width SD 55.3 fl (35.1-43.9); White Blood Count 3.7 K/mm3 (4.4-11.0)
[2021-07-31 06:27] LABS: Differential Indicated SCAN CRITERIA MET; Platelet Count 46 K/mm3 (150-450)
[2021-07-31 06:47] LABS: Anisocytosis RARE; Differential Comment SCANNED; Hypochromasia 1+; Microcytosis RARE; Platelet Estimate MKD DEC (ADEQ)
--- NOTE | 2021-07-31 07:22 | PCM.DC ---
Discharge Instructions Diet Discharge Diet: No restrictions Activity Discharge Activity: May Not Drive Weight Bearing Status: Weight bearing as tolerated Dressing / Incision Call your doctor if you observe: Fever of 101 or Higher, Coldness, Increased Pain, Numbness or Tingling, Change in Color, Inability to urinate, Inability to have a bowel movement, Using more than 1 pad per hour, Shortness of breath, Dizziness, Fainting spells, Swelling in the ankles, Chest pain, Prolonged hiccupping, Increased palpitations (irregular heartbeat), Calf discomfort and Uncontrolled pain Follow Up Care Test Results: Test results from this visit will be discussed in further detail at your follow-up appointment, if applicable. Discharge Plan Admission Admit Date/Time: 07/28/21 16:55 Primary Reason for Your Visit: Acute alcohol withdrawal syndrome, chronic iron deficiency anemia Attending Provider: Cuauhtemoc Ware [employer] Providers: Vianey Charles Discharge Orders/Prescriptions Prescriptions: New ferrous sulfate 325 mg (65 mg iron) tablet 325 mg PO BID Qty: 60 RF: 0 ascorbic acid (vitamin C) 500 mg tablet 500 mg PO BID Qty: 60 RF: 2 thiamine HCl (vitamin B1) [Vitamin B-1] 100 mg Tablet 100 mg PO DAILYCM Qty: 30 RF: 2 folic acid 1 mg Tablet 1 mg PO 0800 Qty: 30 RF: 2 hydroxyzine HCl 25 mg tablet 25 mg PO TID PRN (Reason: anxiety) Qty: 30 RF: 0 No Action NK RF: 0 Referrals / Follow Up: BRADLEY GUTIÉRREZ [Other] - Within 2 Weeks BRADLEY GUTIÉRREZ [Other] Los Hernandez DO [STAFF PHYSICIAN] - Within 1 Month (chronic thrombocytopenia) Carmelina Rodriguez MD [STAFF PHYSICIAN] - Within 2 Weeks (for menorrhagia) Disposition Disposition (needs filled in before D/C Order can be placed): Home, Self Care
[2021-07-31 08:00] VITALS: BP 111/76; PULSE 92; RESP 16; TEMP 36.8; O2SAT 99
[2021-07-31] MEDS: Thiamine Hydrochloride 100 MG Tablet PO (08:07)
[2021-07-31] MEDS: Gabapentin 300 MG Capsule PO (08:07)
[2021-07-31] MEDS: Folic Acid 1 MG Tablet PO (08:07)
--- NOTE | 2021-07-31 08:42 | DS.PCM_ITS ---
Providers Date of Admission: 07/28/21 Date of Discharge: 07/31/21 Primary Care Physician: BRADLEY CANCHOLA Reason For Visit: etoh detox Diagnosis Discharge Diagnosis (1) ETOH abuse: Status: Acute Code(s): F10.10 - Alcohol abuse, uncomplicated (2) Desire for detoxification: Status: Acute (3) Pancytopenia: Status: Acute Code(s): D61.818 - Other pancytopenia (4) Alcoholic hepatitis: Status: Acute Code(s): K70.10 - Alcoholic hepatitis without ascites (5) Iron deficiency anemia: Status: Acute Code(s): D50.9 - Iron deficiency anemia, unspecified Medications at Discharge Home Medications ferrous sulfate 325 mg PO BID #60 tab 07/29/21 ascorbic acid (vitamin C) 500 mg PO BID #60 tab 07/31/21 folic acid 1 mg PO 0800 #30 tab 07/31/21 hydroxyzine HCl 25 mg PO TID PRN #30 tab 07/31/21 omeprazole 40 mg PO DAILY #60 tab 07/31/21 thiamine HCl (vitamin B1) [Vitamin B-1] 100 mg PO DAILYCM #30 tab 07/31/21 Hospital Course Summary of Care Provided Hospital Course: This 39-year-old female was admitted for symptoms of alcohol withdrawal. She expressed desire for alcohol detoxification. For the last 1 week before admission she has been excessively binge drinking about 2 L of vodka per day. She has anxiety triggered from her recent divorce and mild depression but no suicidal thoughts or ideation. [facility] She did not had signs of withdrawal except for mild anxiety. It was treated with phenobarbital based other adjunctive medications including thiamine folic acid. Moderate eval was completed and patient has follow-up in [place] after discharge Patient also found to have pancytopenia most likely due to pulmonary suppression from chronic alcohol abuse. She has chronic iron deficiency anemia pretreated from heavy menstrual periods, menorrhagia she was treated with IV iron and discharged on oral iron and vitamin C along with thiamine and folic acid. She also requested prescription for anxiety and hydroxyzine prescription was given. All prescriptions were sent to patient's pharmacy. Patient other diagnoses are acute on chronic alcoholic hepatitis, acute hepatitis resolved. Mild anxiety. Acute adjustment from recent divorce. Discharge medication reconciliation done. Discharge follow-up instructions completed. Discharge process discussed with the patient and all questions were answered to patient's satisfaction. Total time spent, exact 35 minutes on discharge meds reconciliation, examination, coordination of care with nurses and ancillary staff, review of imaging and blood test and discussion with the patient on follow-up instr uctions. Physical Exam Narrative Seen and examined Patient complains of mild upper abdominal pain in epigastric region. She has symptoms of anxiety and she states that drives her to relapse. She has history of chronic alcohol use and dependence. Physical exam General: Alert, Oriented x3, Cooperative HEENT: Atraumatic, PERRLA, EOMI, Normocephalic Oral: No Gingival or Mucosal Lesions/ Ulcerations Neck: Supple, No JVD, Negative Carotid Bruits Lungs: Air entry equal in bilateral lung bases. No crepitation/rhonchi Cardiovascular: Regular rate, Regular Rhythm, Normal S1, Normal S2, No murmurs Abdomen: Bowel Sounds Present, Soft, Non Tender, Non-Distended : No renal angle tenderness. No suprapubic tenderness. Extremities: No edema, Capillary Refill Less than 3 Seconds Skin: No rashes, No breakdown Musculoskeletal: No Tenderness to Palpation of Joints or Extremities Neurological: Cranial nerves II-XII grossly intact, DTR 2+/4 and Symmetrical, Neuro grossly intact Psych/Mental Status: Anxiety. Medical Records Data Medical Nutrition Assessment Dietitian: Malnutrition Criteria Met Start: 07/29/21 09:45 Freq: Status: Active Protocol: Document 07/29/21 09:46 (Rec: 07/29/21 09:46 AG [id number]) Nutrition Malnutrition Evidence of Malnutrition Exists Yes Malnutrition (severe): Social/Behavioral/ Environmental Evidenced By Suboptimal Energy Intake ( Severe),Weight Loss (Severe) Clinical Problem Chronic Disease or Condition Related Malnutrition Etiology severe malnutrition in context of social/behavioral circumstances r/t inadequate protein-energy intake d/t depression, alcohol abuse Signs/Symptoms as evidenced by estimated PO intake meeting <75% of estimated energy needs >3 months; reported unintentional wt loss of 60#/34% x 6 months Status Active Problem Recommendation Dietitian Recommendations/Changes continue regular diet as tolerated; will add 120mL ensure compact TID w/ meals for addtional calories/protein if consumed. Weight / BMI Weight Weight: 111 lb 15.917 oz Body Mass Index (BMI) 18.6 ABG / Lab / Microbiology Data Result Diagrams: 07/31/21 05:40 07/29/21 05:32 Laboratory: Laboratory Results - last 24 hr 07/31/21 05:40: WBC 3.7 L, RBC 3.70 L, Hgb 9.2 L, Hct 30.2 L, MCV 81.6, MCH 24.9 L, MCHC 30.5 L, RDW Std Deviation 55.3 H, RDW Coeff of Govind 18.8 H, Plt Count 46 L*, MPV 11.1, Immature Gran % (Auto) 1.600 H, Neut % (Auto) 73.0 H, Lymph % (Auto) 16.5 L, [place] % (Auto) 5.7, Eos % (Auto) 2.4, Baso % (Auto) 0.8, Absolute Neuts (auto) 2.7, Absolute Lymphs (auto) 0.61 L, Nucleated RBC % 0.5, Differe ntial Comment SCANNED, Diff Path Review May foll, Platelet Estimate MKD DEC, Hypochromasia 1+, Anisocytosis RARE, Microcytosis RARE D/C Instructions Discharge Diet: No restrictions Weight Bearing Status: Weight bearing as tolerated Call your doctor if you observe: Fever of 101 or Higher, Coldness, Increased Pain, Numbness or Tingling, Change in Color, Inability to urinate, Inability to have a bowel movement, Using more than 1 pad per hour, Shortness of breath, Dizziness, Fainting spells, Swelling in the ankles, Chest pain, Prolonged hiccupping, Increased palpitations (irregular heartbeat), Calf discomfort and Uncontrolled pain Meaningful Use Info Meaningful Use Diagnoses (Choose all that apply): None applicable Discharge Plan Admission Admit Date/Time: 07/28/21 16:55 Primary Reason for Your Visit: Acute alcohol withdrawal syndrome, chronic iron deficiency anemia Attending Provider: Cuauhtemoc Ware Consulting Providers: Vianey Charles Discharge Orders/Prescriptions Prescriptions: New ferrous sulfate 325 mg (65 mg iron) tablet 325 mg PO BID Qty: 60 RF: 0 ascorbic acid (vitamin C) 500 mg tablet 500 mg PO BID Qty: 60 RF: 2 thiamine HCl (vitamin B1) [Vitamin B-1] 100 mg Tablet 100 mg PO DAILYCM Qty: 30 RF: 2 folic acid 1 mg Tablet 1 mg PO 0800 Qty: 30 RF: 2 hydroxyzine HCl 25 mg tablet 25 mg PO TID PRN (Reason: anxiety) Qty: 30 RF: 0 omeprazole 20 mg tablet,delayed release (DR/EC) 40 mg PO DAILY Qty: 60 RF: 2 Referrals / Follow Up: BRADLEY GUTIÉRREZ [Other] - Within 2 Weeks BRADLEY GUTIÉRREZ [Other] Los Hernandez DO [STAFF PHYSICIAN] - Within 1 Month (chronic thrombocytopenia) Carmelina Rodriguez MD [STAFF PHYSICIAN] - Within 2 Weeks (for menorrhagia) Disposition Disposition (needs filled in before D/C Order can be placed): Home, Self Care Charges/Coding Visit Charges Inpatient E&M: 75155 Disch Hosp
[2021-07-31] MEDS: 0.9% Saline Lock 10 ML Syringe IV (10:08)
[2021-07-31 14:28] VITALS: BP 106/86; PULSE 109; RESP 16; TEMP 37.1; O2SAT 99
[2021-08-01 11:48] LABS: Pathologist Review Reviewed
[2021-08-01 11:51] LABS: Pathologist Review Reviewed
== END 2021-07-31 16:49 | disposition home or self-care (01) | DRG 897 ==
LOC: ED 16:40 → MS3 17:18
PROVIDERS: Admitting Provider Internal Medicine; Emergency Provider Emergency Medicine; Visit Provider Internal Medicine
DX: F10.129 Alcohol abuse with intoxication, unspecified (principal); D61.818 Other pancytopenia; E44.1 Mild protein-calorie malnutrition; Z68.1 Body mass index [BMI] 19.9 or less, adult; D69.6 Thrombocytopenia, unspecified; K70.10 Alcoholic hepatitis without ascites; D50.9 Iron deficiency anemia, unspecified; F32.A Depression, unspecified; N92.0 Excessive and frequent menstruation with regular cycle; Y90.8 Blood alcohol level of 240 mg/100 ml or more
CPT/HCPCS: 36415; 70450; 80053; 80307; 82077; 82728; 83540; 83550; 84443; 84703; 85018; 85025; 97802; 99251; 99283; J7050; A4216; G0463; J2916

== ENCOUNTER 2022-07-13 22:59 | Inpatient (IN) | payer MEDICAID, SELFPAY ==
[2022-07-13 22:47] VITALS: BP 140/96; PULSE 103; RESP 17; TEMP 36.3; O2SAT 100
--- NOTE | 2022-07-14 04:13 | HP.PCM.HOS_ITS ---
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 Patient fell at the bathroom and sustained swelling at the left supraorbital area. Her friend who was with her thought that patient might have had a seizure so he called the paramedics who took patient to the [facility]. Reportedly patient eyes rolled back. Initially patient did not want to go to the hospital. However, because she had hematemesis later she agreed to go to [facility] ED. Patient reports having about 2 hematemesis each month in the past 3 months. Patient also reports 2 episodes of possible seizure in the past 2 years. The one episode before the current one was 6 months to 1 year. She has lacerations on her tongue that she thinks that at least one might has been there for about a month and the other might have been sustained on the day of presentation. She reports drinking about a gallon of vodka each day. She feels depressed and anxious. She started drinking about 2 years ago when she was going to divorce. At [facility] patient's sodium was 2.8 and she received IV potassium. Her glucose was 179. Her platelets was 43,000. She was given Protonix. Last time patient drank was about 2 days prior to presentation to [facility]. She reports withdrawal symptoms of shakiness, nausea and vomiting. She reports dyspepsia and abdominal pain. Patient was transferred to our hospital ([facility]) for higher level of care as the outside hospital that patient came from did not have a GI specialist. [facility] Medical History (Updated 07/14/22 @ 05:[address] 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 All other systems were reviewed and are negative Vital Signs Vital Signs Vital Signs: 07/13/22 22:47 07/13/22 22:45 Temperature 97.4 F L Temperature Source Temporal Pulse Rate 103 H Respiratory Rate 17 Respiratory Effort Normal Non-Labored Respiratory Depth Normal Respiratory Pattern Normal Blood Pressure 140/96 H Blood Pressure Mean 110 Blood Pressure Source Monitor Blood Pressure Position Supine Blood Pressure Location Left Arm Pulse Ox 100 Oxygen Delivery Method Room Air Room Air Physical Exam Narrative Physical exam: General: Well-nourished, well-developed. Head: Normocephalic, ecchymosis on left supra orbital area. Conjunctival injection bilateral (patient attributes to contact lenses). Eyes: Vision is grossly intact. EOMI ENT: White pigmentation on tongue with lacerations. Neck: Nontender, No thyromegaly. CVS: Regular rate and rhythm. S1-S2 present. No murmur, gallop or rub. Respiratory : clear to auscultation bilaterally, chest wall nontender Abdomen: Soft, nontender, nondistended, normal bowel sounds, no masses : Deferred Back: Nontender, no CVA tenderness, no midline spinal tenderness, deformities, step-offs Extremities: Nontender full range of motion, no trauma Skin: Normal color, no trauma, abrasions Neuro: Alert, oriented, cranial nerves II through XII grossly intact. Psychiatry: Normal mood. Normal affect. Not depressed. Not anxious. Assessment & Plan Assessment/Plan (1) Alcoholism: (2) Thrush, oral: (3) Desire for detoxification: (4) Hematemesis: (5) Thrombocytopenia: PLAN: Plan Alcohol dependence and desire for detoxification Patient be started on phenobarbital and other adjunctive medications: Gabapentin as needed; dicyclomine as needed; Vistaril as needed; Imodium as needed; trazodone as needed; Zofran as needed; scheduled thiamine; and schedule folic acid. Monitor CIWA score Possible seizure/fall CT cervical without contrast unremarkable. CT chest/abdomen/pelvis without contrast showed hepatic steatosis and diverticulosis CT brain without contrast showed left frontal scalp soft tissue contusion. Outside labs were reviewed. High sensitive troponin x2 at outside hospital was negative. Seizure precautions ordered. As needed Ativan ordered. Alcoholic hepatitis AST at outside hospital was 168 (normal 13-39) ALT 112 (normal 14-59) AST over ALT 1.5, alcoholic pattern. Alkaline phosphatase 125 (normal 46-116) In the setting of hematemesis will avoid steroids at this time. Hypokalemia Potassium 2.8 at outside hospital. Received IV replacement at the hospital. Trend CMP. Normal saline with potassium supplementation ordered. Check magnesium. Oral thrush Nystatin swish and swallow ordered. Check HIV Hematemesis Etiology could be Latoya-Gauthier tear; Boerhaave's syndrome; gastritis; PUD or other. Trend H&H. GI consult. Thrombocytopenia Platelets of 43,000 at outside hospital. Check CBC. Check PT/INR, and PTT. DVT prophylaxis Low risk Encourage to ambulate Charges/Coding Visit Charges Inpatient E&M: 34887 Init Hosp L3
[2022-07-14 04:15] VITALS: BP 122/97; PULSE 100; RESP 15; TEMP 37.1; O2SAT 97
[2022-07-14] MEDS: Lactated Ringers 1,000 ML 75 ML IV (04:35)
[2022-07-14] MEDS: hydrOXYzine PAM 25 MG Capsule 50 MG PO ×2 (04:42→18:37)
[2022-07-14] MEDS: Phenobarbital 32.4 MG Tablet 64.8 MG PO ×5 (04:43→20:51)
[2022-07-14] MEDS: Potassium Chloride 40 MEQ in 0.9% Normal Saline 1,000 ML 75 MEQ IV ×2 (06:24→18:37)
[2022-07-14 08:10] LABS: Hematocrit 31.3 % (37-47); Hemoglobin 10.2 g/dL (12.0-15.0)
[2022-07-14 08:53] LABS: ALB/GLOB Ratio 0.9 RATIO (0.9-2.4); AST(SGOT) 117 U/L (15-37); Alanine Aminotransfer ALT/SGPT 77 U/L (13-56); Alkaline Phosphatase 94 U/L (45-117); Anion Gap 13 (5-15); BUN 4 mg/dL (7-18); BUN/Creat Ratio 8.6 RATIO (10-20); Calcium,Total 8.1 mg/dL (8.5-10.1); Chloride 101 mmol/L (98-107); Creatinine, Serum 0.47 mg/dL (0.55-1.02); EST Glomerular Filtration Rate 155 mL/min (>60); Est Glom Filt Rate - Afr Amer 188 mL/min (>60); Globulin 3.2 g/dL (2.2-4.2); Glucose 68 mg/dL (74-106); Magnesium 0.9 mg/dL (1.6-2.6); Potassium 3.1 mmol/L (3.5-5.1); Protein, Total 6.2 g/dL (6.4-8.2); Sodium Level 136 mmol/L (136-145)
[2022-07-14 09:20] VITALS: BP 126/95; PULSE 90; RESP 16; TEMP 37.3; O2SAT 99
[2022-07-14 09:23] LABS: HIV - WCH Non-Reactive (Nonreactive)
[2022-07-14] MEDS: Gabapentin 300 MG Capsule PO (09:26)
[2022-07-14] MEDS: Pantoprazole Sodium 40 MG Tablet PO (09:26)
[2022-07-14] MEDS: NYSTATIN 500,000 UNIT/5 ML UDC 500000 UNIT PO ×4 (09:27→20:51)
[2022-07-14] MEDS: Folic Acid 1 MG Tablet PO (09:27)
[2022-07-14] MEDS: Thiamine Hydrochloride 100 MG Tablet PO (09:27)
[2022-07-14 10:07] LABS: Hematocrit 32.2 % (37-47); Hemoglobin 10.5 g/dL (12.0-15.0)
--- NOTE | 2022-07-14 10:32 | CASEMGMT ---
Social Work SW notified Jim, patient navigator from [facility], that pt is here. ANYA Valentine
[2022-07-14] MEDS: Magnesium Chloride 64 MG Delay Rel.Tablet 128 MG PO ×2 (11:55→20:51)
--- NOTE | 2022-07-14 13:11 | ADDICTION ---
This racebook writer met with PT to conduct ASAM, MSE, AUDIT, DUDIT assessments and to plan for d/c. PT A+Ox4 and participated actively. All assessments completed and placed in PT's chart. PT plans to f/u with follow-up treatment services, however she wanted resources based on her listed wants and needs. She reports she will follow up with [facility]. PT did not indicate a need for transportation post d/c from [facility].
[2022-07-14 13:20] VITALS: BP 142/92; PULSE 91; RESP 16; TEMP 37.2; O2SAT 98
--- NOTE | 2022-07-14 14:52 | PCM.PN.HOSP ---
Reason for Visit Reason for Visit: Diagnoses Candidal stomatitis (07/13/22) Thrombocytopenia, unspecified (07/13/22) Alcohol dependence, uncomplicated (07/13/22) Hematemesis (07/13/22) Subjective Subjective Patient was seen and examined today, I talked extensively with addiction social science research assistant today about her care. Addiction social science research assistant feels that her seizures are connected with alcohol withdrawal-patient told me that she felt she had seizures before she had episodes of alcohol withdrawal. Patient's magnesium and potassium are low today, I replaced both of them. Objective Data Objective Data Vital Signs: Vital Signs Temp Pulse Resp BP Pulse Ox O2 Del Method 99.1 F 90 16 126/95 H 99 Room Air 07/14/22 09:20 07/14/22 09:20 07/14/22 09:20 07/14/22 09:20 07/14/22 09:20 07/14/22 09:30 Oxygen Delivery Method Room Air Weight: 52.3 kg Intake & Output: Intake and Output for Last 24 Hours 07/12/22 07/13/22 07/14/22 23:59 23:59 23:59 Intake Total 1000 / 1000 Output Total 0 / 0 Balance 0 / 0 1000 / 1000 Lab / Micro Data Result Diagrams: 07/14/22 10:02 07/14/22 06:50 Labs: Laboratory Results - last 24 hr 07/14/22 06:50: HIV 1&2 Antibody Non-Reactive 07/14/22 06:50: Hgb 10.2 L, Hct 31.3 L 07/14/22 06:50: Sodium 136, Potassium 3.1 L, Chloride 101, Carbon Dioxide 22.0, Anion Gap 13, BUN 4 L, Creatinine 0.47 L, Est GFR (MDRD) Af Amer 188, Est GFR (MDRD) Non-Af 155, BUN/Creatinine Ratio 8.6 L, Glucose 68 L, Calcium 8.1 L, Magnesium 0.9 L*, Total Bilirubin 1.00, AST 117 H, ALT 77 H, Alkaline Phosphatase 94, Total Protein 6.2 L, Albumin 3.0 L, Globulin 3.2, Albumin/Globulin Ratio 0.9 07/14/22 10:02: Hgb 10.5 L, Hct 32.2 L Physical Exam Const alert, oriented x3, no apparent distress and healthy appearing General Appearance: cooperative, well kempt and well developed Orientation / Consciousness: awake, oriented to person, oriented to place and oriented to time HEENT normocephalic and moist oral mucous membranes HEENT Narrative: There is an area of ecchymosis around her left eye Eyes PERRL and EOMs intact bilaterally Neck supple, no JVD, thyroid normal and no carotid bruits General: trachea midline Resp normal respiratory effort, no retractions, no use of accessory muscles and clear to auscultation bilaterally Auscultation: Negative for rales, rhonchi or wheezes Cardio regular rate, regular rhythm, S1 normal heart sound, S2 normal heart sound, no murmurs, no rub and no gallops GI normal to inspection, nondistended, normoactive bowel sounds, soft to palpation, non-tender and non-distended Extremity no clubbing, cyanosis or edema Skin no rashes or lesions noted General Skin Exam: no breakdown Neuro oriented x3, CN's II-XII intact bilaterally, moves all extremities, no focal motor deficits and no sensory deficits noted Sensorium / Orientation: awake and alert Speech: speech normal Psych affect normal Assessment & Plan Assessment/Plan (1) Alcoholism: PLAN: Plan 1. Acute alcohol withdrawal-patient will remain on her present medications #2 chronic alcoholism-complicates care, medical course, recovery, and prognosis #3 alcohol withdrawal seizures-patient is on phenobarbital currently #2 episodes of hematemesis-patient states that she had an episode of hematemesis, she noted blood-streaked vomitus but no clots, at this time I do not think she needs to see gastroenterology, I will put her on a PPI and she may need to undergo an EGD on Saturday. #5 hypomagnesemia-patient will have magnesium replacement given #6 hypokalemia-patient will have potassium replacement, BMP will be repeated tomorrow #7 thrombocytopenia-possibly secondary to cirrhosis, CBC will be rechecked tomorrow #8 ecchymosis around the left eye from a fall Total clinical time spent by myself addressing the patient's medical problems, reviewing all of the data, and collaborating with patient's care team: 35-minutes Charges/Coding Visit Charges Inpatient E&M: 32630 Subs Hosp L2
[2022-07-14] MEDS: Potassium Chloride Oral Tablet 20 MEQ 40 MEQ PO (15:00)
[2022-07-14 16:18] LABS: Hematocrit 32.8 % (37-47); Hemoglobin 10.7 g/dL (12.0-15.0); POSITIVE COUNT YES
[2022-07-14 17:20] VITALS: BP 133/92; PULSE 98; RESP 16; TEMP 37.3; O2SAT 98
[2022-07-14] MEDS: traZODone 100 MG Tablet PO (20:52)
[2022-07-14] MEDS: Loperamide 2 MG Capsule PO (20:52)
[2022-07-14 20:54] VITALS: BP 128/98; PULSE 115; RESP 18; TEMP 36.8; O2SAT 98
[2022-07-15] MEDS: Phenobarbital 32.4 MG Tablet 64.8 MG PO ×4 (00:56→11:36)
[2022-07-15 04:00] VITALS: BP 120/94; PULSE 87; RESP 18; TEMP 36.8; O2SAT 98
[2022-07-15] MEDS: Potassium Chloride 40 MEQ in 0.9% Normal Saline 1,000 ML 75 MEQ IV ×2 (04:30→17:51)
[2022-07-15 05:26] LABS: Absolute Lymphocyte Count 0.84 X10^3/uL (0.83-4.51); Absolute Neutrophil Count 2.6 X10^3/uL (2.0-7.7); Basophil# 0.02 X10^3/uL; Basophil% 0.5 % (0-1); Eosinophil# 0.07 X10^3/uL; Eosinophils% 1.9 % (0-5); Hematocrit 36.2 % (37-47); Hemoglobin 11.5 g/dL (12.0-15.0); Lymphocyte # 0.84 X10^3/ul (0.83-4.51); Lymphocyte % 22.8 % (19-41); Mean Corp Hgb Conc 31.8 g/dL (32-36); Mean Corpuscular Hgb 29.3 pg (27.0-32.0); Mean Corpuscular Volume 92.3 fL (81-99); Mean Platelet Vol. 10.7 fl (6.2-12.0); Monocyte# 0.19 X10^3/uL; Monocyte% 5.1 % (0-10); NRBC Flagged by Analyzer 0 % (0-5); Neutrophil # 2.55 X10^3/uL (2.7-7.7); Neutrophil % 69.2 % (47-70); POSITIVE COUNT YES; RBC Distribution Width CV 15.4 % (11.6-14.6); RBC Distribution Width SD 51.6 fl (35.1-43.9); Red Blood Count 3.92 M/mm3 (4.2-5.4); White Blood Count 3.7 K/mm3 (4.4-11.0)
[2022-07-15 05:42] LABS: Prothrombin Time (Protime)PT. 13.3 SECONDS (11.7-14.9)
[2022-07-15 05:43] LABS: Partial Thromboplast Time 26.9 Seconds (24.1-36.2)
[2022-07-15 05:55] LABS: Differential Indicated SCAN CRITERIA MET; Platelet Count 34 K/mm3 (150-450)
[2022-07-15 06:09] LABS: Anion Gap 5 (5-15); BUN 3 mg/dL (7-18); BUN/Creat Ratio 5.9 RATIO (10-20); Calcium,Total 9.7 mg/dL (8.5-10.1); Chloride 108 mmol/L (98-107); Creatinine, Serum 0.51 mg/dL (0.55-1.02); EST Glomerular Filtration Rate 141 mL/min (>60); Est Glom Filt Rate - Afr Amer 170 mL/min (>60); Estimated Creatinine Clearance 118.64 ml/min; Glucose 111 mg/dL (74-106); Magnesium 1.3 mg/dL (1.6-2.6); Potassium 3.8 mmol/L (3.5-5.1); Sodium Level 137 mmol/L (136-145)
[2022-07-15 06:28] LABS: Differential Comment SCANNED; Platelet Estimate MKD DEC (ADEQ)
[2022-07-15] MEDS: hydrOXYzine PAM 25 MG Capsule 50 MG PO ×3 (07:04→17:51)
[2022-07-15 09:39] VITALS: BP 118/75; PULSE 92; RESP 16; TEMP 37.2; O2SAT 99
[2022-07-15] MEDS: Gabapentin 300 MG Capsule PO ×2 (09:43→22:28)
[2022-07-15] MEDS: Thiamine Hydrochloride 100 MG Tablet PO (09:44)
[2022-07-15] MEDS: Pantoprazole Sodium 40 MG Tablet PO (09:44)
[2022-07-15] MEDS: NYSTATIN 500,000 UNIT/5 ML UDC 500000 UNIT PO ×4 (09:44→23:08)
[2022-07-15] MEDS: Folic Acid 1 MG Tablet PO (09:45)
--- NOTE | 2022-07-15 12:01 | PCM.PN.HOSP ---
Reason for Visit Reason for Visit: Diagnoses Candidal stomatitis (07/13/22) Thrombocytopenia, unspecified (07/13/22) Alcohol dependence, uncomplicated (07/13/22) Hematemesis (07/13/22) Subjective Subjective She was seen and examined today, she complains of some anxiety, she used to be on antidepressants and she questioned whether she could be started back on antidepressants, I have agreed to start her on Cymbalta 30 mg daily, I asked her to talk to her discharging physician tomorrow about having a prescription for this when she goes home. I also requested that she talk to the discharging physician about possibly being placed on a low-dose of BuSpar on discharge home. It appears that she is going to plan to do an outpatient detox program. 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 Objective Data Objective Data Vital Signs: Vital Signs Temp Pulse Resp BP Pulse Ox O2 Del Method 99.0 F 92 16 118/75 99 Room Air 07/15/22 09:39 07/15/22 09:39 07/15/22 09:39 07/15/22 09:39 07/15/22 09:39 07/15/22 09:39 Oxygen Delivery Method Room Air Weight: 52.3 kg Intake & Output: Intake and Output for Last 24 Hours 07/13/22 07/14/22 07/15/22 23:59 23:59 23:59 Intake Total 2796.25 / 2796.25 741.25 / 741.25 Output Total 0 / 0 Balance 0 / 0 2796.25 / 2796.25 741.25 / 741.25 Lab / Micro Data Result Diagrams: 07/15/22 05:00 07/15/22 05:00 Labs: Laboratory Results - last 24 hr 07/14/22 16:04: Hgb 10.7 L, Hct 32.8 L 07/15/22 05:00: WBC 3.7 L, RBC 3.92 L, Hgb 11.5 L, Hct 36.2 L, MCV 92.3, MCH 29.3, MCHC 31.8 L, RDW Std Deviation 51.6 H, RDW Coeff of Govind 15.4 H, Plt Count 34 L*, MPV 10.7, Immature Gran % (Auto) 0.500, Neut % (Auto) 69.2, Lymph % (Auto) 22.8, [place] % (Auto) 5.1, Eos % (Auto) 1.9, Baso % (Auto) 0.5, Absolute Neuts (auto) 2.6, Absolute Lymphs (auto) 0.84, Nucleated RBC % 0, Differential Comment SCANNED, Diff Path Review July foll, Platelet Estimate MKD 07/15/22 05:00: PT 13.3, INR 1.0, APTT 26.9 07/15/22 05:00: Sodium 137, Potassium 3.8, Chloride 108 H, Carbon Dioxide 24.0, Anion Gap 5, BUN 3 L, Creatinine 0.51 L, Estim Creat Clear Calc 118.64, Est GFR (MDRD) Af Amer 170, Est GFR (MDRD) Non-Af 141, BUN/Creatinine Ratio 5.9 L, Glucose 111 H, Calcium 9.7, Magnesium 1.3 L Physical Exam Narrative alert, oriented x3, no apparent distress and healthy appearing General Appearance: cooperative, well kempt and well developed Orientation / Consciousness: awake, oriented to person, oriented to place and oriented to time HEENT normocephalic and moist oral mucous membranes HEENT Narrative: There is an area of ecchymosis around her left eye Eyes PERRL and EOMs intact bilaterally Neck supple, no JVD, thyroid normal and no carotid bruits General: trachea midline Resp normal respiratory effort, no retractions, no use of accessory muscles and clear to auscultation bilaterally Auscultation: Negative for rales, rhonchi or wheezes Cardio regular rate, regular rhythm, S1 normal heart sound, S2 normal heart sound, no murmurs, no rub and no gallops GI normal to inspection, nondistended, normoactive bowel sounds, soft to palpation, non-tender and non-distended Extremity no clubbing, cyanosis or edema Skin no rashes or lesions noted General Skin Exam: no breakdown Neuro oriented x3, CN's II-XII intact bilaterally, moves all extremities, no focal motor deficits and no sensory deficits noted Sensorium / Orientation: awake and alert Speech: speech normal Psych affect normal Assessment & Plan Assessment/Plan (1) Alcoholism: PLAN: Plan 1. Acute alcohol withdrawal-patient's phenobarbital will be reduced, we will observe for any increased anxiety or nervousness #2 chronic alcoholism-complicates care, medical course, recovery, and prognosis #3 alcohol withdrawal seizures-patient is on phenobarbital currently, I do not think she needs to be placed on Keppra #2 episodes of hematemesis-patient states that she had an episode of hematemesis as an outpatient, she noted blood-streaked vomitus but no clots, I discussed the case with gastroenterology and they will see her tomorrow morning. #5 hypomagnesemia-patient will have magnesium replacement given #6 hypokalemia-patient will have potassium replacement, BMP will be repeated tomorrow #7 thrombocytopenia-possibly secondary to cirrhosis, obtain a liver ultrasound and have GI see the patient #8 ecchymosis around the left eye from a fall #9 chronic depression/anxiety-again I have decided to place the patient on Cymbalta 30 mg daily, she will need a prescription for the Cymbalta when she is released to go home-she will probably need to increase it to 60 mg daily. Total clinical time spent by myself addressing the patient's medical problems, reviewing all of the data, and collaborating with patient's care team: 36-minutes Charges/Coding Visit Charges Inpatient E&M: 44557 Subs Hosp L2
--- NOTE | 2022-07-15 12:16 | US_ITS ---
STUDY: ABDOMINAL ULTRASOUND - RIGHT UPPER QUADRANT REASON FOR VISIT: Female, 41 years old ? Cirrhosis, alcoholism TECHNIQUE: Ultrasound evaluation of the right upper quadrant was performed with real-time and static boyer-scale imaging. TECHNICAL QUALITY: Adequate. COMPARISON: None. FINDINGS: Liver: The liver measures 16.7 cm. There is increased echogenicity consistent with fatty infiltration. The bile ducts are within normal limits. There is hepatic color flow. The direction of portal flow is hepatopetal. There is no demonstrated mass lesion. Gallbladder: Normal distended gallbladder. The gallbladder wall measures 1.7 mm. There is a negative sonographic Rodriguez''s sign. There is no pericholecystic fluid. There are no gallstones. Common Bile Duct (C.B.D.): The common bile duct measures 3.8 mm. Pancreas: Normal size of the head, body and tail of the pancreas. There is normal echogenicity of the pancreas. There is no demonstrated pancreatic mass or cyst. Right Kidney: Normal size of the right kidney. The right kidney measures 11.3 cm x 5.8 cm x 6.1 cm. Normal renal cortex. The right cortex measures 1.3 cm. There is no demonstrated renal mass or cyst. There is no right hydronephrosis. US/Abdomen Limited IMPRESSION: Fatty infiltration of the liver. Electronically Signed: River Ho MD at 13:20 EDT ,
[2022-07-15 15:00] VITALS: BP 99/69; PULSE 94; RESP 16; TEMP 37; O2SAT 99
[2022-07-15] MEDS: DULoxetine Hcl 30 MG Capsule PO (15:00)
[2022-07-15] MEDS: Phenobarbital 32.4 MG Tablet PO ×2 (15:00→22:28)
[2022-07-15 22:13] VITALS: BP 116/83; PULSE 87; RESP 16; TEMP 36.8; O2SAT 99
[2022-07-15] MEDS: traZODone 100 MG Tablet PO (22:28)
[2022-07-16 04:13] VITALS: BP 127/85; PULSE 87; RESP 16; TEMP 36.8; O2SAT 98
[2022-07-16 04:34] LABS: Absolute Neutrophil Count 2.7 X10^3/uL (2.0-7.7); Basophil# 0.02 X10^3/uL; Basophil% 0.5 % (0-1); Eosinophil# 0.06 X10^3/uL; Eosinophils% 1.6 % (0-5); Hematocrit 30.9 % (37-47); Hemoglobin 10.1 g/dL (12.0-15.0); Lymphocyte % 18.6 % (19-41); Mean Corp Hgb Conc 32.7 g/dL (32-36); Mean Corpuscular Hgb 29.9 pg (27.0-32.0); Mean Corpuscular Volume 91.4 fL (81-99); Mean Platelet Vol. 10.7 fl (6.2-12.0); Monocyte# 0.31 X10^3/uL; Monocyte% 8.2 % (0-10); NRBC Flagged by Analyzer 0 % (0-5); Neutrophil # 2.65 X10^3/uL (2.7-7.7); Neutrophil % 70.6 % (47-70); POSITIVE COUNT YES; RBC Distribution Width CV 15.9 % (11.6-14.6); RBC Distribution Width SD 51.7 fl (35.1-43.9); Red Blood Count 3.38 M/mm3 (4.2-5.4); White Blood Count 3.8 K/mm3 (4.4-11.0)
[2022-07-16 04:37] LABS: Differential Indicated SCAN CRITERIA MET; Platelet Count 41 K/mm3 (150-450)
[2022-07-16 05:23] LABS: Anisocytosis 1+; Platelet Estimate MKD DEC (ADEQ)
[2022-07-16] MEDS: Potassium Chloride 40 MEQ in 0.9% Normal Saline 1,000 ML 75 MEQ IV ×2 (05:48→22:00)
[2022-07-16] MEDS: Phenobarbital 32.4 MG Tablet PO ×3 (05:48→21:36)
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
[2022-07-16] MEDS: Folic Acid 1 MG Tablet PO (08:31)
[2022-07-16] MEDS: Thiamine Hydrochloride 100 MG Tablet PO (08:31)
[2022-07-16] MEDS: 0.9% Saline Lock 10 ML Syringe IV (09:03)
[2022-07-16 09:42] VITALS: BP 132/98; PULSE 83; RESP 16; TEMP 36.4; O2SAT 99
[2022-07-16] MEDS: NYSTATIN 500,000 UNIT/5 ML UDC 500000 UNIT PO ×4 (09:45→21:36)
[2022-07-16] MEDS: DULoxetine Hcl 30 MG Capsule PO (09:45)
[2022-07-16] MEDS: Pantoprazole Sodium 40 MG Tablet PO (09:45)
[2022-07-16 12:33] LABS: Pathologist Review Reviewed
[2022-07-16 12:34] LABS: Pathologist Review Reviewed
[2022-07-16 16:08] VITALS: BP 103/68; PULSE 77; RESP 16; TEMP 36.4; O2SAT 99
--- NOTE | 2022-07-16 16:30 | EX.PCM.CON.G ---
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 Patient fell at the bathroom and sustained swelling at the left supraorbital area.? Her friend who was with her thought that patient might have had a seizure so he called the paramedics who took patient to the [facility].? However, because she had hematemesis later she agreed? to go to [facility] ED. Patient reports having about 2 hematemesis each month in the past 3 months. Patient also reports 2 episodes of possible seizure in the past 2 years.? The one episode before the current one was 6 months to 1 year.? She has lacerations on her tongue that she thinks that at least one might? has been there for about a? month and the other might have been sustained on the day of presentation. She reports drinking about? a gallon of vodka each day.? She feels depressed and anxious.? She started drinking about 2 years ago when she was going to divorce. At [facility] patient's sodium was 2.8 and she received IV potassium.? Her glucose was 179.? Her platelets was 43,000.? She was given Protonix. Last time patient drank was about 2 days prior to presentation to [facility].? She reports withdrawal symptoms of shakiness, nausea and vomiting. She reports dyspepsia and abdominal pain. [facility] Medical History (Updated 07/16/22 @ 08:[address] 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 Smoking Status: Never smoker alcohol intake: current alcohol intake frequency: 3 or more drinks per day Previous attempts at quittin details: Patient is currently drinking approximately 2 L of vodka a day substance use type: does not use ROS Constitutional Constitutional: Denies anorexia, change in weight, chills, fatigue, fever(s), malaise, night sweats, weakness or other Eyes Eyes: Denies blurry vision, change in eye color, change in vision, discharge from eye(s), double vision, erythema, eye pain, loss of vision or other ENT HEENT: Denies abnormal hearing, dysphagia, ear pain, epistaxis, headache(s), hearing loss, nasal congestion, nasal discharge, post nasal drip, sinus pressure, sore throat or other Cardiovascular Cardiovascular: Denies chest pain, claudication, dyspnea on exertion, edema, lightheadedness, orthopnea, palpitations, paroxysmal nocturnal dyspnea, rapid heart rate, syncope or other Respiratory/Chest Respiratory/Chest: Denies cough, dyspnea, excessive phlegm production, hemoptysis, productive cough, shortness of breath at rest, shortness of breath with exertion, wheezing or other Gastrointestinal Gastrointestinal: Denies abdominal pain, coffee ground emesis, constipation, diarrhea, dyspepsia, hematemesis, hematochezia, loose stools, melena, nausea, vomiting or other Genitourinary Genitourinary: Denies burning urination, difficulty urinating, dysuria, hematuria, nocturia, urinary frequency, urinary hesitancy, urinary incontinence, urinary urgency or other Musculoskeletal Musculoskeletal: Denies arthralgias, back pain, joint pain, joint stiffness, joint swelling, myalgias, neck pain or other Neurologic Neurologic: Denies abnormal gait, abnormal speech, confusion, disequilibrium, dizziness, focal weakness, headache(s), numbness, paresthesias, seizure-like activity, seizures, syncope, tingling, tremor(s) or other Psychiatric Psychiatric: Denies anxiety, depression, homicidal ideation, suicidal ideation or other Endocrine Endocrinology: Denies change in body appearance, cold intolerance, excessive sweating, heat intolerance, polydipsia, polyuria or other Hematologic/Lymphatic Hematologic/Lymphatic: Denies anemia, easy bleeding, easy bruising, lymphadenopathy or other Allergic/Immunologic Allergic/Immunologic: Denies rhinitis, hives, eczemia, asthma or other Physical Exam Const alert and no apparent distress HEENT HEENT Narrative: bilateral orbital ecchymosis, L>R. no icterus. Resp normal respiratory effort, no retractions, no use of accessory muscles and clear to auscultation bilaterally Cardio regular rate, regular rhythm, S1 normal heart sound and S2 normal heart sound GI normal to inspection, nondistended, normoactive bowel sounds, soft to palpation, non-tender and non-distended Extremity normal to inspection Lab / Micro Data Result Diagrams: 07/16/22 04:12 07/15/22 05:00 Labs: Laboratory Results - last 24 hr 07/15/22 05:00: Diff Path Review Reviewed 07/16/22 04:12: WBC 3.8 L, RBC 3.38 L, Hgb 10.1 L, Hct 30.9 L, MCV 91.4, MCH 29.9, MCHC 32.7, RDW Std Deviation 51.7 H, RDW Coeff of Govind 15.9 H, Plt Count 41 L*, MPV 10.7, Immature Gran % (Auto) 0.500, Neut % (Auto) 70.6 H, Lymph % (Auto) 18.6 L, [place] % (Auto) 8.2, Eos % (Auto) 1.6, Baso % (Auto) 0.5, Absolute Neuts (auto) 2.7, Absolute Lymphs (auto) 0.70 L, Nucleated RBC % 0, Diff Path Review Reviewed, Platelet Estimate MKD DEC, Anisocytosis 1+ Radiology Impression Abdomen Ultrasound 07/15/22 12:16 IMPRESSION: Fatty infiltration of the liver. Electronically Signed: River Ho MD at 13:20 EDT , Assessment & Plan Assessment/Plan (1) Alcoholism: (2) Thrush, oral: (3) Desire for detoxification: (4) Hematemesis: (5) Thrombocytopenia: PLAN: Plan Alcoholic hepatitis AST at outside hospital was 168 (normal 13-39) ALT 112 (normal 14-59) AST over ALT 1.5, alcoholic pattern. Alkaline phosphatase 125 (normal 46-116) In the setting of hematemesis will avoid steroids at this time. Hematemesis Etiology could be Latoya-Gauthier tear; Boerhaave's syndrome; gastritis; PUD or other. Trend H&H. She is 2 episodes of thrombocytopenia. Her presentation is possibly secondary to alcoholic gastritis is likely to be sign of variceal disease. Her ultrasound did not show any signs of variceal bleeding however because she is alcoholic she is very high risk of rebleeding due to her pancytopenia from unknown cause. She should undergo an upper endoscopy for evaluation of her hematemesis. Thrombocytopenia Platelets of 43,000 at outside hospital. Check CBC. Check PT/INR, and PTT. DVT prophylaxis Low risk Encourage to ambulate Charges/Coding Visit Charges Inpatient E&M: 48971 Init Hosp L3
[2022-07-16 21:32] VITALS: BP 131/87; PULSE 77; RESP 16; TEMP 36.7; O2SAT 96
[2022-07-16] MEDS: traZODone 100 MG Tablet PO (21:51)
[2022-07-17] VITALS (9 sets, daily range): BP systolic 89–145; BP diastolic 59–87; PULSE 69–81; RESP 15–16; TEMP 36.4–36.8; O2SAT 93–100
[2022-07-17] MEDS: Phenobarbital 32.4 MG Tablet PO ×3 (05:51→21:34)
[2022-07-17] MEDS: hydrOXYzine PAM 25 MG Capsule 50 MG PO ×2 (05:57→21:40)
[2022-07-17 06:56] LABS: Absolute Lymphocyte Count 0.65 X10^3/uL (0.83-4.51); Absolute Neutrophil Count 1.7 X10^3/uL (2.0-7.7); Basophil# 0.01 X10^3/uL; Basophil% 0.4 % (0-1); Eosinophil# 0.07 X10^3/uL; Eosinophils% 2.5 % (0-5); Hematocrit 32.4 % (37-47); Hemoglobin 10.4 g/dL (12.0-15.0); Lymphocyte # 0.65 X10^3/ul (0.83-4.51); Lymphocyte % 23.1 % (19-41); Mean Corp Hgb Conc 32.1 g/dL (32-36); Mean Corpuscular Hgb 29.6 pg (27.0-32.0); Mean Corpuscular Volume 92.3 fL (81-99); Mean Platelet Vol. 10.5 fl (6.2-12.0); Monocyte# 0.34 X10^3/uL; Monocyte% 12.1 % (0-10); NRBC Flagged by Analyzer 0 % (0-5); Neutrophil # 1.72 X10^3/uL (2.7-7.7); Neutrophil % 61.2 % (47-70); POSITIVE COUNT YES; Platelet Count 60 K/mm3 (150-450); RBC Distribution Width SD 53.1 fl (35.1-43.9); Red Blood Count 3.51 M/mm3 (4.2-5.4); White Blood Count 2.8 K/mm3 (4.4-11.0)
[2022-07-17 07:32] LABS: ALB/GLOB Ratio 0.8 RATIO (0.9-2.4); AST(SGOT) 111 U/L (15-37); Alanine Aminotransfer ALT/SGPT 70 U/L (13-56); Albumin, Serum 2.8 g/dL (3.2-5.0); Alkaline Phosphatase 86 U/L (45-117); Anion Gap 3 (5-15); BUN 4 mg/dL (7-18); BUN/Creat Ratio 9.1 RATIO (10-20); Calcium,Total 8.9 mg/dL (8.5-10.1); Chloride 103 mmol/L (98-107); Creatinine, Serum 0.44 mg/dL (0.55-1.02); EST Glomerular Filtration Rate 166 mL/min (>60); Est Glom Filt Rate - Afr Amer 201 mL/min (>60); Estimated Creatinine Clearance 137.52 ml/min; Globulin 3.3 g/dL (2.2-4.2); Glucose 108 mg/dL (74-106); Potassium 4.1 mmol/L (3.5-5.1); Protein, Total 6.1 g/dL (6.4-8.2); Sodium Level 135 mmol/L (136-145)
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
[2022-07-17] MEDS: Lactated Ringers 1,000 ML 15 ML IV (11:47)
--- NOTE | 2022-07-17 12:30 | IMM_PTH ---
PATIENT: MANDEEP MATAMOROS LOC: [facility] U#:[id number] AGE/SX: 41/F ROOM: [facility] RE07/13/[address]: Dr. Cyril Arzate DO : 1980 BED: 1 DIS: 07/18/2022 SPEC #: [id number] RECD: 07/18/22 13:13 STATUS: FLORIN RERocco #: [id number] GURPREET: 07/17/22 12:[address]: Ryan Zayas DEPT: IMMUNOHISTOCHEMISTRY RECD BY: Chayito Velasquez ENTERED: 07/18/22 13:14 SP TYPE: IMMUNO OTHR DR: DO Dr. Jcarlos Cho MD Dr. Mark Tereletsky, DO Tissues: Stomach, NOS Procedures: H Pylori (initial) PHYSICIAN & INSTITUTION [place] [address] SPECIMEN INFORMATION: Tissue Source: Gastric body Clinical Info: Hematemesis, thrombocytopenia Specimen Number: [id number] CPT code: 72752 METHODOLOGY: Deparaffinized sections of prefer/formalin-fixed tissue or PAP/DQ stained slides are incubated with monoclonal/polyclonal antibodies/oligonucleotide probes. Localization is made via biotin free immunoperoxidase method. Appropriate controls are performed and reacted as expected. Results on target cell population are indicated in the following table: RESULTS: ANTIBODY / CLONE RESULT H Pylori (polyclonal) negative These tests were developed and their performance characteristics determined by [facility]. They may not have been cleared or approved by the U.S. Food and Drug Administration. The FDA has determined that such clearance or approval is not necessary. The above immunohistochemical/dualISH markers are ordered and reviewed by the Pathologist. INTERPRETATION: Gastric body, biopsy: Negative for Helicobacter pylori organisms. AM:jean-pierre 07/19/2022
--- NOTE | 2022-07-17 12:30 | EGD_PTH ---
PATIENT: MANDEEP MATAMOROS LOC: [facility] U#:[id number] AGE/SX: 41/F ROOM: [facility] RE07/13/[address]: Dr. Cyril Arzate DO : 1980 BED: 1 DIS: 07/18/2022 SPEC #: [id number] RECD: 07/17/22 15:35 STATUS: FLORIN COLE #: [id number] GURPREET: 07/17/22 12:[address]: Ryan Zayas DEPT: SURGICAL PATHOLOGY RECD BY: Elizabeth Arnold ENTERED: 07/18/22 08:01 SP TYPE: EGD BIOPSY OTHR DR: DO Dr. Jcarlos Cho MD Dr. Mark Tereletsky, Tissues: Gastric mucous membrane Procedures: Surgery Specimen Level IV Comments: @ Ordering doctor for SUIV edited from to @ by PETER at 07/18/22 1314 @ Submitting doctor edited from to @ by PETER at 07/18/22 1314 HEADER [place]PER[place] [place] PRE[place] DIAGNOSIS: Hematemesis, thrombocytopenia TISSUE SUBMITTED: Gastric body MICROSCOPIC DIAGNOSIS Gastric body, biopsy: Mild chronic gastritis. See comment. AM:jean-pierre 07/19/2022 COMMENT The results of immunohistochemistry for Helicobacter pylori will be reported separately ([id number]). MICROSCOPIC DESCRIPTION Slides are reviewed. GROSS DESCRIPTION Received in fixative is one container labeled with the patient's name and designated gastric body. The specimen consists of two irregular fragments of light palacios soft tissue that in aggregate measure 1.0 x 0.5 x 0.1 cm. The specimen is totally submitted in one cassette. / SJ:jean-pierre 07/18/2022 TC:3 CPT: 41706
--- NOTE | 2022-07-17 13:16 | OP.EGD_ITS ---
Patient Name: Chuck Anand Procedure Date: 07/17/2022 12:46 PM Date of : 1980 Age: 41 Procedure: Upper GI endoscopy Indications: Iron deficiency anemia, Hematemesis Providers: Ryan Zayas DO Medicines: Monitored Anesthesia Care Patient Profile: This is a 41 year old female. Refer to note in patient chart for documentation of history and physical. Patient has symptoms. Complications: No immediate complications. Procedure: Pre-Anesthesia Assessment: - Prior to the procedure, a History and Physical was performed, and patient medications and allergies were reviewed. The risks and benefits of the procedure and the sedation options and risks were discussed with the patient. All questions were answered and informed consent was obtained. Patient identification and proposed procedure were verified by the physician in the pre-procedure area. Mental Status Examination: alert and oriented. Airway Examination: normal oropharyngeal airway and neck mobility. Respiratory Examination: clear to auscultation. CV Examination: normal. Prophylactic Antibiotics: The patient does not require prophylactic antibiotics. Prior Anticoagulants: The patient has taken no previous anticoagulant or antiplatelet agents. ASA Grade Assessment: III - A patient with severe systemic disease. After reviewing the risks and benefits, the patient was deemed in satisfactory condition to undergo the procedure. The anesthesia plan was to use monitored anesthesia care (MAC). Immediately prior to administration of medications, the patient was re-assessed for adequacy to receive sedatives. The heart rate, respiratory rate, oxygen saturations, blood pressure, adequacy of pulmonary ventilation, and response to care were monitored throughout the procedure. The physical status of the patient was re-assessed after the procedure. After obtaining informed consent, the endoscope was passed under direct vision. Throughout the procedure, the patient's blood pressure, pulse, and oxygen saturations were monitored continuously. The gastroscope was introduced through the mouth, and advanced to the second part of duodenum. The upper GI endoscopy was accomplished without difficulty. The patient tolerated the procedure well. Scope In: 1:05:31 PM Scope Out: 1:08:33 PM Total Procedure Duration Time 0 hours 3 minutes 2 seconds Findings: A 5 mm bleeding Latoya-Gauthier tear with stigmata of recent bleeding was found. Area was successfully injected with 5 mL of a 1:10,000 solution of epinephrine for drug delivery. Coagulation for hemostasis using argon plasma at 0.3 liters/minute and 20 greer was successful. Estimated blood loss was minimal. Diffuse moderate inflammation characterized by erosions and erythema was found in the gastric body. Biopsies were taken with a cold forceps for histology. A benign-appearing, intrinsic moderate stenosis was found at the pylorus. This was traversed. A TTS dilator was passed through the scope. Dilation with a 12 mm pyloric balloon dilator was performed. The dilation site was examined and showed complete resolution of luminal narrowing. Estimated blood loss was minimal. The first portion of the duodenum was normal. Impression: - Latoya-Gauthier tear. Injected. Treated with argon plasma coagulation (APC). - Alcoholic gastritis. Biopsied. - Gastric stenosis was found at the pylorus. Dilated. - Normal first portion of the duodenum. Recommendation: - Discharge patient to home. - Continue present medications. Procedure Code(s): --- Professional --- 09946, 59, Esophagogastroduodenoscopy, flexible, transoral; with control of bleeding, any method 65791, Esophagogastroduodenoscopy, flexible, transoral; with dilation of gastric/duodenal stricture(s) (eg, balloon, bougie) 95336, 59, Esophagogastroduodenoscopy, flexible, transoral; with directed submucosal injection(s), any substance 06498, 59,51, Esophagogastroduodenoscopy, flexible, transoral; with biopsy, single or multiple CPT copyright 2017 [employer]. All rights reserved. The codes documented in this report are preliminary and upon lithograph press operator review may be revised to meet current compliance requirements. Ryan Zayas DO 07/17/2022 1:15:57 PM This report has been signed electronically. Number of Addenda: 0 Note Initiated On: 07/17/2022 12:46 PM
[2022-07-17] MEDS: DULoxetine Hcl 30 MG Capsule PO (13:51)
[2022-07-17] MEDS: NYSTATIN 500,000 UNIT/5 ML UDC 500000 UNIT PO ×3 (13:51→21:34)
[2022-07-17] MEDS: Thiamine Hydrochloride 100 MG Tablet PO (13:51)
[2022-07-17] MEDS: Folic Acid 1 MG Tablet PO (13:51)
[2022-07-17] MEDS: Pantoprazole Sodium 40 MG Tablet PO (13:52)
[2022-07-17] MEDS: traZODone 100 MG Tablet PO (21:40)
[2022-07-18] VITALS: BP 125/87; PULSE 80; RESP 16; TEMP 36.6; O2SAT 98
[2022-07-18 03:30] VITALS: BP 118/74; PULSE 74; RESP 16; TEMP 36.6; O2SAT 98
[2022-07-18 04:59] LABS: Absolute Lymphocyte Count 0.55 X10^3/uL (0.83-4.51); Absolute Neutrophil Count 1.7 X10^3/uL (2.0-7.7); Basophil# 0.02 X10^3/uL; Basophil% 0.7 % (0-1); Eosinophil# 0.05 X10^3/uL; Eosinophils% 1.8 % (0-5); Hematocrit 32.9 % (37-47); Hemoglobin 10.7 g/dL (12.0-15.0); Lymphocyte # 0.55 X10^3/ul (0.83-4.51); Mean Corp Hgb Conc 32.5 g/dL (32-36); Mean Corpuscular Hgb 29.8 pg (27.0-32.0); Mean Corpuscular Volume 91.6 fL (81-99); Mean Platelet Vol. 10.2 fl (6.2-12.0); Monocyte# 0.39 X10^3/uL; Monocyte% 14.2 % (0-10); NRBC Flagged by Analyzer 0 % (0-5); Neutrophil # 1.72 X10^3/uL (2.7-7.7); Neutrophil % 62.6 % (47-70); POSITIVE COUNT YES; POSITIVE DIFFERENTIAL YES; Platelet Count 93 K/mm3 (150-450); RBC Distribution Width SD 53.9 fl (35.1-43.9); Red Blood Count 3.59 M/mm3 (4.2-5.4); White Blood Count 2.8 K/mm3 (4.4-11.0)
[2022-07-18 05:23] LABS: Anion Gap 4 (5-15); BUN 6 mg/dL (7-18); BUN/Creat Ratio 11.7 RATIO (10-20); Calcium,Total 9.6 mg/dL (8.5-10.1); Chloride 102 mmol/L (98-107); Creatinine, Serum 0.52 mg/dL (0.55-1.02); EST Glomerular Filtration Rate 138 mL/min (>60); Est Glom Filt Rate - Afr Amer 167 mL/min (>60); Estimated Creatinine Clearance 116.36 ml/min; Glucose 108 mg/dL (74-106); Potassium 3.9 mmol/L (3.5-5.1); Sodium Level 135 mmol/L (136-145)
[2022-07-18 05:31] LABS: Differential Indicated SCAN CRITERIA MET
[2022-07-18 05:49] LABS: Platelet Estimate MOD DEC (ADEQ)
[2022-07-18 05:50] LABS: Anisocytosis 1+
[2022-07-18] MEDS: hydrOXYzine PAM 25 MG Capsule 50 MG PO (05:58)
[2022-07-18] MEDS: Phenobarbital 32.4 MG Tablet PO (05:58)
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
[2022-07-18 08:07] VITALS: BP 107/77; PULSE 77; RESP 16; TEMP 37.2; O2SAT 98
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
[2022-07-18] MEDS: Thiamine Hydrochloride 100 MG Tablet PO (08:23)
[2022-07-18] MEDS: DULoxetine Hcl 30 MG Capsule PO (08:23)
[2022-07-18] MEDS: Gabapentin 300 MG Capsule PO (08:23)
[2022-07-18] MEDS: NYSTATIN 500,000 UNIT/5 ML UDC 500000 UNIT PO (08:23)
[2022-07-18] MEDS: Folic Acid 1 MG Tablet PO (08:23)
[2022-07-18] MEDS: Pantoprazole Sodium 40 MG Tablet PO (08:23)
--- NOTE | 2022-07-18 11:26 | PCM.DC ---
Discharge Instructions Diet Discharge Diet: No restrictions Dressing / Incision Call your doctor if you observe: - (vomiting blood. dark tarry stools) Follow Up Care Test Results: Test results from this visit will be discussed in further detail at your follow-up appointment, if applicable. Discharge Plan Admission Admit Date/Time: 07/13/22 22:59 Primary Reason for Your Visit: GI bleed. alcohol withdrawal. Attending Provider: Cyril Arzate Consulting Providers: Jcarlos Schultz ; Gentry Martinez Instructions Additional Instructions / Restrictions: Follow up with gastroenterology and hematology. Discharge Orders/Prescriptions Prescriptions: New duloxetine 30 mg Capsule,Delayed Release(Dr/Ec) 30 mg PO DAILY Qty: 30 0RF nystatin 100,000 unit/mL Suspension 500,000 unit PO 4X/DAY 7 Days Qty: 140 0RF pantoprazole 40 mg Tablet,Delayed Release (Dr/Ec) 40 mg PO DAILY Qty: 30 0RF trazodone 100 mg Tablet 100 mg PO QHS PRN (Reason: Insomnia) Qty: 30 0RF multivitamin Tablet 1 tab PO DAILY Qty: 30 0RF Referrals / Follow Up: [facility] [Provider Group] - Within 1 Month *[facility] [Provider Group] - Within 1 Month (thrombocytopenia follow up ) Disposition Disposition (needs filled in before D/C Order can be placed): Home, Self Care
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
--- NOTE | 2022-07-18 12:11 | PHA.DC.MC ---
Pharmacy Service has performed discharge medication reconciliation and counseling for this patient. 1. DULOXETINE 30MG PO DAILY 2. NYSTATIN 500,000UNITS PO 4X/DAY X 7 DAYS 3. PANTOPRAZOLE 40MG PO DAILY 4. MULTIVITAMIN 1T PO DAILY 5. TRAZODONE 100MG PO QHS PRN INSOMNIA The patient's discharge medication list was reviewed for discrepancies and discrepancies were resolved. Home Medications duloxetine 30 mg capsule,delayed release 30 mg PO DAILY #30 caps 07/18/22 multivitamin 1 tab PO DAILY #30 tabs 07/18/22 nystatin 100,000 unit/mL oral suspension 500,000 unit (5 mL) PO 4X/DAY 7 days #140 mL 07/18/22 pantoprazole 40 mg tablet,delayed release 40 mg PO DAILY #30 tabs 07/18/22 trazodone 100 mg tablet 100 mg PO QHS PRN Insomnia #30 tabs 07/18/22 The patient was counseled on the following discharge medications and changes in medications for homegoing were reviewed. The Reason for Use, instructions for use, and potential side effects were reviewed for all new medications. The patient's questions regarding all of their medications were answered. The patient was able to verbally demonstrate an understanding of their discharge medications.
[2022-07-18 17:03] VITALS: BP 95/69; PULSE 93; RESP 16; TEMP 37.1; O2SAT 96
[2022-07-19 10:04] LABS: Pathologist Review Reviewed
== END 2022-07-18 17:11 | disposition home or self-care (01) | DRG 242 ==
PROVIDERS: Internal Medicine; Internal Medicine Gastroenterology; Admitting Provider Hospitalist
PROC: 0DJ08ZZ Inspection of Upper Intestinal Tract, Via Natural or Artificial Opening Endoscopic (ICD-10-PCS; CPT 43235; principal; 2022-07-17 12:25)
DX: K22.6 Gastro-esophageal laceration-hemorrhage syndrome (principal); D61.818 Other pancytopenia; F10.231 Alcohol dependence with withdrawal delirium; K31.1 Adult hypertrophic pyloric stenosis; B37.0 Candidal stomatitis; G40.89 Other seizures; S05.12XA Contusion of eyeball and orbital tissues, left eye, initial encounter; E83.42 Hypomagnesemia; E87.6 Hypokalemia; F41.9 Anxiety disorder, unspecified; W18.2XXA Fall in (into) shower or empty bathtub, initial encounter; K70.10 Alcoholic hepatitis without ascites; K29.21 Alcoholic gastritis with bleeding; F32.A Depression, unspecified; Y90.0 Blood alcohol level of less than 20 mg/100 ml; R55 Syncope and collapse; Z79.899 Other long term (current) drug therapy
CPT/HCPCS: 36415; 76705; 80048; 80053; 83735; 85014; 85018; 85025; 85610; 85730; 86703; 88305; 88342; 97802; J7030; J7120; A4216; J2405

== ENCOUNTER 2023-08-19 10:07 | Inpatient (IN) | payer MEDICAID, SELFPAY ==
[2023-08-19 10:00] VITALS: BP 138/93; PULSE 88; RESP 88; TEMP 36.8; O2SAT 98
[2023-08-19 10:18] VITALS: BMI 45.3
[2023-08-19 10:19] VITALS: BP 138/93; PULSE 88; RESP 18; TEMP 36.8; O2SAT 98
--- NOTE | 2023-08-19 12:06 | HP.PCM.HOS_ITS ---
HPI - General General Date of Admission: 08/19/23 HPI Narrative MANDEEP MATAMOROS, is a 43 F who presents to the hospital requesting detox from alcohol. She drinks about a liter of vodka per day and she says that this is fairly consistent and she is only been sober for about a week at a time over the last year and a half and she says that she has been drinking recently because she is getting a divorce. Her last drink was last evening and is anxious and tremulous, she was at an outside hospital where she did receive Ativan but she says that that is wearing off at the moment. Her initial CIWA score was 6 on arrival. [facility] Medical History Alcoholism Physical exam, pre-employment Thrombocytopenia Iron deficiency anemia Alcoholic hepatitis Pancytopenia ETOH abuse Alcohol abuse Home Medications ?Medication ?Instructions ?Recorded ?Last Taken ?Type duloxetine 30 mg capsule,delayed 30 mg PO DAILY #30 caps 07/18/22 Unknown Rx release multivitamin 1 tab PO DAILY #30 tabs 07/18/22 Unknown Rx nystatin 100,000 unit/mL oral 500,000 unit (5 mL) PO 4X/DAY 7 07/18/22 Unknown Rx suspension days #140 mL pantoprazole 40 mg tablet,delayed 40 mg PO DAILY #30 tabs 07/18/22 Unknown Rx release trazodone 100 mg tablet 100 mg PO QHS PRN Insomnia #30 tabs 07/18/22 Unknown Rx Allergy/AdvReac Type Severity Reaction Status Date / Time No Known Allergies Allergy Verified 07/28/21 14:44 Family History (Updated 08/19/23 @ 12:[address] 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 Smoking Status: Never smoker alcohol intake: current alcohol intake frequency: 3 or more drinks per day Previous attempts at quittin details: Patient is currently drinking approximately 2 L of vodka a day substance use type: does not use ROS Constitutional Constitutional: Denies chills, fatigue, fever(s) or malaise Eyes Eyes: Denies blurry vision ENT HEENT: Denies headache(s) or nasal discharge Cardiovascular Cardiovascular: Denies chest pain, dyspnea on exertion or syncope Respiratory/Chest Respiratory/Chest: Denies cough, shortness of breath at rest or shortness of breath with exertion Gastrointestinal Gastrointestinal: Denies constipation, diarrhea, nausea or vomiting Genitourinary Genitourinary: Denies dysuria Neurologic Neurologic: Reports tremor(s); Denies focal weakness or numbness Psychiatric Psychiatric: Reports anxiety; Denies depression Vital Signs Vital Signs Vital Signs: 08/19/23 10:00 08/19/23 10:18 08/19/23 10:19 Temperature 98.2 F 98.2 F Temperature Source Temporal Temporal Pulse Rate 88 88 Respiratory Rate 88 H 18 Blood Pressure 138/93 H 138/93 H Blood Pressure Mean 108 108 Blood Pressure Source Monitor Monitor Blood Pressure Position Sitting Semi-Fowlers Blood Pressure Location Right Arm Right Arm Pulse Ox 98 98 Oxygen Delivery Method Room Air Room Air Room Air Weight Weight: 272 lb 4.334 oz Body Mass Index (BMI) 45.3 Physical Exam Narrative General: Alert, Oriented x3, Cooperative, No apparent distress, anxious and restless/tremors HEENT: Atraumatic, PERRLA, EOMI, Normocephalic Oral: Moist Mucosa Neck: Supple, No JVD Lungs: Clear to auscultation, Normal air movement, No rhonchi, No wheeze, No rales Cardiovascular: Regular rate, Regular Rhythm, Normal S1, Normal S2, No murmurs Abdomen: Soft, Non Tender, Non-Distended, No Hepato-splenomegaly Extremities: No edema, Capillary Refill Less than 3 Seconds Skin: No rashes, No breakdown Musculoskeletal: No Tenderness to Palpation of Joints or Extremities Neurological: No focal neurological deficits, Motor Exam 5/5 strength throughout, Sensory exam intact to light touch and pain Psych/Mental Status: Anxious and restless, voice shakes Assessment & Plan Assessment/Plan (1) Alcohol withdrawal: PLAN: Plan 1. Acute alcohol withdrawal/anxiety/depression ? She denies any other drug use ? Will have her follow-up with 180 ? Continue with the alcohol withdrawal protocol ? Will verify her medications and can restart her mental health medications when able ? She does endorse a history of seizures usually during the withdrawal. Will place her on seizure precautions 2. GERD ? Stable ? Continue with PPI when verified DVT: Ambulation 75 minutes was spent on direct patient care, including documentation as well as chart review and collaboration with colleagues Charges/Coding Visit Charges Inpatient E&M: 82837 Init Hosp L3
[2023-08-19] MEDS: Phenobarbital 32.4 MG Tablet 64.8 MG PO ×3 (12:46→21:07)
[2023-08-19] MEDS: hydrOXYzine PAM 25 MG Capsule 50 MG PO ×2 (12:46→21:10)
[2023-08-19 14:00] VITALS: BP 131/92; PULSE 87; RESP 18; TEMP 36.8; O2SAT 98
[2023-08-19] MEDS: Gabapentin 300 MG Capsule PO (14:11)
[2023-08-19 18:00] VITALS: BP 129/91; PULSE 90; RESP 18; TEMP 37.2; O2SAT 98
[2023-08-19] MEDS: Ensure Plus High Protein 120 ML LIQUID PO (18:30)
[2023-08-19 21:04] VITALS: BP 144/105; PULSE 93; RESP 18; TEMP 36.9; O2SAT 98
[2023-08-19] MEDS: traZODone 100 MG Tablet PO (21:10)
[2023-08-20] MEDS: Phenobarbital 32.4 MG Tablet 64.8 MG PO ×6 (01:15→20:05)
[2023-08-20 05:00] VITALS: BP 128/86; PULSE 85; RESP 18; TEMP 37.1; O2SAT 98
--- NOTE | 2023-08-20 09:41 | CASEMGMT ---
Social Work- Pt confirms she has not completed a living will and health care POA. Pt is not interested in doing so at this time. EDUARDO Harley
--- NOTE | 2023-08-20 09:53 | PCM.PN.HOSP ---
Subjective Subjective Feels little bit improved today. CIWA score of 0 Objective Data Objective Data Vital Signs: Vital Signs Temp Pulse Resp BP Pulse Ox O2 Del Method 98.8 F 85 18 128/86 H 98 Room Air 08/20/23 05:00 08/20/23 05:00 08/20/23 05:00 08/20/23 05:00 08/20/23 05:00 08/20/23 05:00 Oxygen Delivery Method Room Air Weight: 123 lb 10.869 oz Body Mass Index (BMI) 45.3 Intake & Output: Intake and Output for Last 24 Hours 08/19/23 08/20/23 08/21/23 03:59 03:59 03:59 Intake Total 1650 / 1650 Balance 1650 / 1650 Physical Exam Narrative General: Alert, Oriented x3, Cooperative, No apparent distress, anxious HEENT: Atraumatic, PERRLA, EOMI, Normocephalic Oral: Moist Mucosa Neck: Supple, No JVD Lungs: Clear to auscultation, Normal air movement, No rhonchi, No wheeze, No rales Cardiovascular: Regular rate, Regular Rhythm, Normal S1, Normal S2, No murmurs Abdomen: Soft, Non Tender, Non-Distended, No Hepato-splenomegaly Extremities: No edema, Capillary Refill Less than 3 Seconds Skin: No rashes, No breakdown Musculoskeletal: No Tenderness to Palpation of Joints or Extremities Neurological: No focal neurological deficits, Motor Exam 5/5 strength throughout, Sensory exam intact to light touch and pain Psych/Mental Status: Anxious Assessment & Plan Assessment/Plan (1) Alcohol withdrawal: PLAN: Plan 1. Acute alcohol withdrawal/anxiety/depression ? She denies any other drug use ? Will have her follow-up with 180 ? Continue with the alcohol withdrawal protocol ? Will verify her medications and can restart her mental health medications when able ? She does endorse a history of seizures usually during the withdrawal. Will place her on seizure precautions 2. GERD ? Stable ? Continue with PPI when verified DVT: Ambulation Charges/Coding Visit Charges Inpatient E&M: 01649 Subs Hosp L2
[2023-08-20] MEDS: Ensure Plus High Protein 120 ML LIQUID PO ×2 (09:56→21:33)
[2023-08-20] MEDS: Folic Acid 1 MG Tablet PO (09:56)
[2023-08-20] MEDS: Thiamine Hydrochloride 100 MG Tablet PO (09:56)
[2023-08-20 10:00] VITALS: BP 129/89; PULSE 78; RESP 18; TEMP 36.3; O2SAT 97; O2SAT 98
[2023-08-20] MEDS: Gabapentin 300 MG Capsule PO (10:02)
[2023-08-20] MEDS: hydrOXYzine PAM 25 MG Capsule 50 MG PO ×3 (10:02→21:29)
--- NOTE | 2023-08-20 11:46 | ADDICTION ---
Addendum entered by Teresa Ireland 08/20/23 12:06: Pt has met the criteria for the Vivitrol shot and would like it administered upon d/c. She will follow up with her PCP or [facility] for next shot. Original Note: Addiction therapist met with pt to complete RAMP assessments. Pt reports that she believes she should go to inpatient but is anxious and scared to go. She has requested that I begin the process for [facility], inpatient at [facility], and will decide by tomorrow morning if she wants to go. A referral has been placed however there are no beds available. Pt has decided to do outpatient treatment.
[2023-08-20 16:00] VITALS: BP 118/74; PULSE 78; RESP 18; TEMP 36.9; O2SAT 97
[2023-08-20 21:27] VITALS: BP 127/88; PULSE 91; RESP 15; TEMP 37.3; O2SAT 97
[2023-08-20] MEDS: traZODone 100 MG Tablet PO (21:29)
[2023-08-20 21:36] VITALS: BP 127/88; PULSE 96; RESP 18; TEMP 37.2; O2SAT 98
[2023-08-20 22:00] VITALS: RESP 15
[2023-08-21] VITALS (7 sets, daily range): BP systolic 87–129; BP diastolic 60–89; PULSE 89–102; RESP 14–16; TEMP 36.9–37.2; O2SAT 92–100
[2023-08-21] MEDS: Phenobarbital 32.4 MG Tablet 64.8 MG PO ×6 (00:07→20:11)
[2023-08-21] MEDS: Gabapentin 300 MG Capsule PO ×2 (00:12→13:28)
[2023-08-21] MEDS: Thiamine Hydrochloride 100 MG Tablet PO (07:43)
[2023-08-21] MEDS: Folic Acid 1 MG Tablet PO (07:43)
[2023-08-21] MEDS: hydrOXYzine PAM 25 MG Capsule 50 MG PO ×2 (07:46→20:12)
[2023-08-21] MEDS: Ondansetron 8 MG Tablet PO (07:46)
[2023-08-21] MEDS: Ensure Plus High Protein 120 ML LIQUID PO ×4 (07:50→21:08)
--- NOTE | 2023-08-21 09:41 | PCM.PN.HOSP ---
Subjective Subjective Still little bit anxious but unclear if it is from withdrawal or baseline mental health. CIWA score of 12 Objective Data Objective Data Vital Signs: Vital Signs Temp Pulse Resp BP Pulse Ox O2 Del Method 98.4 F 102 H 16 113/89 H 98 Room Air 08/21/23 08:09 08/21/23 08:09 08/21/23 08:09 08/21/23 08:09 08/21/23 08:09 08/21/23 08:09 Oxygen Delivery Method Room Air Weight: 123 lb 10.869 oz Body Mass Index (BMI) 45.3 Intake & Output: Intake and Output for Last 24 Hours 08/20/23 08/21/23 08/22/23 03:59 03:59 03:59 Intake Total 1650 / 1650 2100 / 2100 500 / 500 Balance 1650 / 1650 2100 / 2100 500 / 500 Lab / Micro Data 08/21/23 09:17 Physical Exam Narrative General: Alert, Oriented x3, Cooperative, No apparent distress, anxious HEENT: Atraumatic, PERRLA, EOMI, Normocephalic Oral: Moist Mucosa Neck: Supple, No JVD Lungs: Clear to auscultation, Normal air movement, No rhonchi, No wheeze, No rales Cardiovascular: Regular rate, Regular Rhythm, Normal S1, Normal S2, No murmurs Abdomen: Soft, Non Tender, Non-Distended, No Hepato-splenomegaly Extremities: No edema, Capillary Refill Less than 3 Seconds Skin: No rashes, No breakdown Musculoskeletal: No Tenderness to Palpation of Joints or Extremities Neurological: No focal neurological deficits, Motor Exam 5/5 strength throughout, Sensory exam intact to light touch and pain Psych/Mental Status: Anxious Assessment & Plan Assessment/Plan (1) Alcohol withdrawal: PLAN: Plan 1. Acute alcohol withdrawal/anxiety/depression ? She denies any other drug use ? Will have her follow-up with [facility] ? Continue with the alcohol withdrawal protocol ? Will verify her medications and can restart her mental health medications when able ? She does endorse a history of seizures usually during the withdrawal. Will place her on seizure precautions ? Will obtain a CMP in anticipation of providing Vivitrol on discharge 2. GERD ? Stable ? Continue with PPI when verified DVT: Ambulation Charges/Coding Visit Charges Inpatient E&M: 22846 Subs Hosp L2
[2023-08-21 10:26] LABS: ALB/GLOB Ratio 0.9 RATIO (0.9-2.4); AST(SGOT) 95 U/L (15-37); Alanine Aminotransfer ALT/SGPT 55 U/L (13-56); Albumin, Serum 3.6 g/dL (3.2-5.0); Alkaline Phosphatase 89 U/L (45-117); Anion Gap 6 (5-15); BUN 6 mg/dL (7-18); BUN/Creat Ratio 11.3 RATIO (10-20); Calcium,Total 10.3 mg/dL (8.5-10.1); Chloride 100 mmol/L (98-107); Creatinine, Serum 0.53 mg/dL (0.55-1.02); EST Glomerular Filtration Rate 133 mL/min (>60); Est Glom Filt Rate - Afr Amer 162 mL/min (>60); Estimated Creatinine Clearance 119.96 ml/min; Glucose 116 mg/dL (74-106); Potassium 3.9 mmol/L (3.5-5.1); Protein, Total 7.6 g/dL (6.4-8.2); Sodium Level 135 mmol/L (136-145)
[2023-08-21] MEDS: traZODone 100 MG Tablet PO (21:08)
[2023-08-22 02:21] VITALS: BP 102/76; PULSE 80; RESP 14; TEMP 36.6; O2SAT 100
[2023-08-22] MEDS: Phenobarbital 32.4 MG Tablet 64.8 MG PO ×3 (02:22→13:40)
[2023-08-22] MEDS: hydrOXYzine PAM 25 MG Capsule 50 MG PO ×2 (02:23→11:04)
[2023-08-22] MEDS: Thiamine Hydrochloride 100 MG Tablet PO (08:04)
[2023-08-22] MEDS: Folic Acid 1 MG Tablet PO (08:04)
[2023-08-22] MEDS: Gabapentin 300 MG Capsule PO (08:05)
[2023-08-22] MEDS: Ondansetron 8 MG Tablet PO (08:05)
[2023-08-22] MEDS: Ensure Plus High Protein 120 ML LIQUID PO (08:07)
[2023-08-22 08:49] VITALS: BP 108/73; PULSE 84; RESP 16; TEMP 36.6; O2SAT 100
--- NOTE | 2023-08-22 11:06 | DCINST_ITS ---
Discharge Instructions Diet Discharge Diet: No restrictions Activity Discharge Activity: Return to Normal Activity Dressing / Incision Call your doctor if you observe: Fever of 101 or Higher, Shortness of breath, Dizziness, Fainting spells, Swelling in the ankles, Chest pain and Increased palpitations (irregular heartbeat) Follow Up Care Test Results: Test results from this visit will be discussed in further detail at your follow- up appointment, if applicable. Discharge Plan Admission Admit Date/Time: 08/19/23 10:51 Attending Provider: Armando Barrett Primary Care Provider: Care Sarah Rocha Primary Discharge Orders/Prescriptions Prescriptions: Continued duloxetine 30 mg Capsule,Delayed Release(Dr/Ec) 30 mg PO DAILY Qty: 30 0RF nystatin 100,000 unit/mL Suspension 500,000 unit PO 4X/DAY 7 Days Qty: 140 0RF pantoprazole 40 mg Tablet,Delayed Release (Dr/Ec) 40 mg PO DAILY Qty: 30 0RF trazodone 100 mg Tablet 100 mg PO QHS PRN (Reason: Insomnia) Qty: 30 0RF multivitamin Tablet 1 tab PO DAILY Qty: 30 0RF Referrals / Follow Up: Care Physician,Sarah Primary [Primary Care Provider] - Disposition Disposition (needs filled in before D/C Order can be placed): Home, Self Care
[2023-08-22 11:27] VITALS: BP 108/74; PULSE 86; RESP 16; TEMP 36.5; O2SAT 98
[2023-08-22] MEDS: Naltrexone Microspheres 380 MG SYRINGE IM (12:55)
[2023-08-22] MEDS: Vivitrol ID Card 1 EACH MC (13:40)
[2023-08-22] MEDS: Vivitrol Administration Needles 1 EACH MC (13:40)
--- NOTE | 2023-08-22 14:16 | PCM.DC.SUM ---
Providers Date of Admission: 08/19/23 Primary Care Physician: No Primary Care Phys Reason For Visit: ALCOHOL DETOX Diagnosis Discharge Diagnosis (1) Alcohol withdrawal: Status: Acute Code(s): F10.939 - Alcohol use, unspecified with withdrawal, unspecified Medications at Discharge Home Medications duloxetine 30 mg capsule,delayed release 30 mg PO DAILY #30 caps 07/18/22 multivitamin 1 tab PO DAILY #30 tabs 07/18/22 nystatin 100,000 unit/mL oral suspension 500,000 unit (5 mL) PO 4X/DAY 7 days #140 mL 07/18/22 pantoprazole 40 mg tablet,delayed release 40 mg PO DAILY #30 tabs 07/18/22 trazodone 100 mg tablet 100 mg PO QHS PRN Insomnia #30 tabs 07/18/22 Hospital Course Operations None Procedures None Summary of Care Provided Minutes Spent on Discharge: 36 Hospital Course: Per HPI: MANDEEP MATAMOROS, is a 43 F who presents to the hospital requesting detox from alcohol. She drinks about a liter of vodka per day and she says that this is fairly consistent and she is only been sober for about a week at a time over the last year and a half and she says that she has been drinking recently because she is getting a divorce. Her last drink was last evening and is anxious and tremulous, she was at an outside hospital where she did receive Ativan but she says that that is wearing off at the moment. Her initial CIWA score was 6 on arrival. Hospital Course: 1. Acute alcohol withdrawal/anxiety/depression?43-year-old female presented to the hospital requesting detox from alcohol. Her last drink was about the night before admission. She has gone through detox before and has even gone to an inpatient rehab facility but it does appear that she suffers from significant amount of anxiety and depression which I think sets her back. She did complete the alcohol withdrawal protocol and initially there was an attempt to get her to inpatient rehab however there were no beds so she elected to be discharged with outpatient follow-up. Her main symptom on the CIWA scales was anxiety at this point which is baseline for her so I discussed with her the possibility for discharge today she expressed understanding of the risk benefits of going home and would like to go home today. She will follow-up with [facility] as an outpatient. She was evaluated by the [facility] coordinator who felt that she would not be appropriate candidate for Vivitrol so this was ordered prior to discharge. CMP was unremarkable. Physical Exam Narrative General: Alert, Oriented x3, Cooperative, No apparent distress, anxious HEENT: Atraumatic, PERRLA, EOMI, Normocephalic Oral: Moist Mucosa Neck: Supple, No JVD Lungs: Clear to auscultation, Normal air movement, No rhonchi, No wheeze, No rales Cardiovascular: Regular rate, Regular Rhythm, Normal S1, Normal S2, No murmurs Abdomen: Soft, Non Tender, Non-Distended, No Hepato-splenomegaly Extremities: No edema, Capillary Refill Less than 3 Seconds Skin: No rashes, No breakdown Musculoskeletal: No Tenderness to Palpation of Joints or Extremities Neurological: No focal neurological deficits, Motor Exam 5/5 strength throughout, Sensory exam intact to light touch and pain Psych/Mental Status: Anxious Weight / BMI Weight Weight: 123 lb 10.869 oz Body Mass Index (BMI) 45.3 ABG / Lab / Microbiology Data 08/21/23 09:17 D/C Instructions Discharge Diet: No restrictions Call your doctor if you observe: Fever of 101 or Higher, Shortness of breath, Dizziness, Fainting spells, Swelling in the ankles, Chest pain and Increased palpitations (irregular heartbeat) Meaningful Use Info Meaningful Use Meaningful Use Diagnoses (Choose all that apply): None applicable Ischemic Stroke Statin Dosing Therapy Reference: STATIN DOSE THERAPY REFERENCE: * Patients > 75 years receive moderate or high dose statin therapy. * Patients 75 years or YOUNGER should receive HIGH intensity statin dose unless contraindicated. You will be required to document reason for non-treatment if statin daily dose does not meet guidelines. HIGH DOSE STATIN THERAPY DAILY Atorvastatin > than or = to 40 mg Rosuvastatin > than or = to 20 mg Amlodipine + Atorvastatin > than or = to 2.5/40 mg Ezetimibe + Simvastatin 10/80 mg Simvastatin 80mg Discharge Plan Admission Admit Date/Time: 08/19/23 10:51 Attending Provider: Armando Barrett Primary Care Provider: Care Physician,No Primary Discharge Orders/Prescriptions Prescriptions: Continued duloxetine 30 mg Capsule,Delayed Release(Dr/Ec) 30 mg PO DAILY Qty: 30 0RF nystatin 100,000 unit/mL Suspension 500,000 unit PO 4X/DAY 7 Days Qty: 140 0RF pantoprazole 40 mg Tablet,Delayed Release (Dr/Ec) 40 mg PO DAILY Qty: 30 0RF trazodone 100 mg Tablet 100 mg PO QHS PRN (Reason: Insomnia) Qty: 30 0RF multivitamin Tablet 1 tab PO DAILY Qty: 30 0RF Referrals / Follow Up: Care Physician,No Primary [Primary Care Provider] - Disposition Disposition (needs filled in before D/C Order can be placed): Home, Self Care Charges/Coding Visit Charges Inpatient E&M: 12560 Disch Hosp >30min
--- NOTE | 2023-08-22 14:43 | CASEMGMT ---
Discharge Planning A list of?PCP providers consistent with the patient's preferred geographic region, medical needs, and insurance network was created from the [facility] webite.? This list was provided to the patient. Bette Guaman, Discharge Planning Asst.
== END 2023-08-22 16:53 | disposition home or self-care (01) | DRG 775 ==
PROVIDERS: Admitting Provider Family Medicine; Referring Provider Family Medicine; Visit Provider Family Medicine
DX: F10.939 Alcohol use, unspecified with withdrawal, unspecified (principal); K21.9 Gastro-esophageal reflux disease without esophagitis
CPT/HCPCS: 80053; 97802

== ENCOUNTER 2024-03-19 09:23 | Inpatient (IN) | payer SELFPAY ==
[2024-03-19] VITALS (23 sets, daily range): BP systolic 105–129; BP diastolic 47–88; PULSE 86–121; RESP 14–26; TEMP 36.8–37.3; O2SAT 94–100; BMI 20.6
--- NOTE | 2024-03-19 09:46 | EX.ED.DYSGE1 ---
HPI History of Present Illness Chief Complaint: General Illness Informant: patient Onset/Context/Timing Onset: Days Context: Gradual Onset Timing: Continuous Current Severity: Mild Maximum Severity: Moderate Narrative Narrative: 43-year-old female history of excessive alcohol use, rheumatoid arthritis and prior seizure. 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 States for the last 5 days beginning on Saturday she has had anterior chest discomfort. Shortness of breath and exertional dyspnea. No cardiac history. No history of DVT or PE or risk factors. Denies any recent travel, surgery, or immobilization. No leg swelling. No calf pain. No hemoptysis. States she has not drank alcohol for the last 2 weeks. Did have nausea and vomiting recently but that is since stopped. No history of pancreatitis. Prior similar symptoms: No Recent Illness/Hospitalization: No PFSH PFSH Medical History Alcoholism Physical exam, pre-employment Thrombocytopenia Iron deficiency anemia Alcoholic hepatitis Pancytopenia ETOH abuse Alcohol abuse Home Medications ?Medication ?Instructions ?Recorded ?Last Taken ?Type duloxetine 30 mg capsule,delayed 30 mg PO DAILY #30 caps 07/18/22 Unknown Rx release multivitamin 1 tab PO DAILY #30 tabs 07/18/22 Unknown Rx nystatin 100,000 unit/mL oral 500,000 unit (5 mL) PO 4X/DAY 7 07/18/22 Unknown Rx suspension days #140 mL pantoprazole 40 mg tablet,delayed 40 mg PO DAILY #30 tabs 07/18/22 Unknown Rx release trazodone 100 mg tablet 100 mg PO QHS PRN Insomnia #30 tabs 07/18/22 Unknown Rx Allergy/AdvReac Type Severity Reaction Status Date / Time No Known Allergies Allergy Verified 03/19/24 09:24 Family History Other Cancer Heart disease Surgical History History of tonsillectomy Social History household members: none housing: house 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 Denies any hematemesis. Recent heavy period since resolved. Anterior chest pain. Shortness of breath and exertional dyspnea. Constitutional Constitutional ED: Denies chills or fever(s) Eyes Eyes: Denies blurry vision ENT ENT ED: Denies ear pain Cardiovascular Cardiovascular: Reports chest pain Respiratory/Chest Respiratory/Chest: Reports cough, dyspnea and dyspnea on exertion; Denies sputum Gastrointestinal Gastrointestinal: Reports nausea and vomiting; Denies abdominal pain, constipation, diarrhea or melena Genitourinary Genitourinary ED: Denies dysuria or hematuria Musculoskeletal Musculoskeletal: Denies arthralgias Integumentary Denies abscess Neurologic Neurologic: Denies headache(s) Psychiatric Psychiatric: Denies anxiety or depression Endocrine Endocrinology: Denies cold intolerance Hematologic/Lymphatic Hematologic/Lymphatic: Reports none Allergic/Immunologic Allergic/Immunologic ED: Denies mouth swelling, tongue swelling or urticaria EXAM Physical Exam Narrative Exam Narrative: 43-year-old female vital signs are stable afebrile. Pulse ox 100% on room air no hypoxia. H EENT exam pupils round reactive light. Moist mucous membranes. Neck nontender no JVD. No lymphadenopathy. Lungs few scattered wheezes. No rales or rhonchi. Equal symmetrical. Heart tachycardic 115 no murmur. Chest wall reproducible anterior chest wall discomfort. No ecchymosis or bruising. No subcu air or crepitance. No bony deformity. Abdomen soft nontender. Normal bowel sounds without peritoneal signs. Moving all 4 extremities. Calves are nontender without edema or cords. Normal strength. Normal range of motion. She has a normal left femoral pulse. There is no rash or abscess. No inguinal lymphadenopathy. Neurologically she is awake and alert no focal motor deficits. Back nontender. Const Vital Signs: 03/19/24 09:24 03/19/24 10:05 03/19/24 10:37 Temperature 98.3 F Temperature Source Oral Pulse Rate 115 H 115 H Respiratory Rate 16 16 Respiratory Effort Respiratory Pattern Blood Pressure 119/70 Blood Pressure Mean 86 Pulse Ox 100 100 Oxygen Delivery Method Room Air Room Air 03/19/24 10:38 Temperature Temperature Source Pulse Rate Respiratory Rate Respiratory Effort Normal Non-Labored Respiratory Pattern Normal Blood Pressure Blood Pressure Mean Pulse Ox Oxygen Delivery Method Positive well nourished and well developed; Negative for obese, cachectic, contractures or unkempt General Appearance ED: well developed and NAD; Negative for unkempt, cachectic, contractures, cyanotic, diaphoretic or pallor Nutritional Appearance: Negative for cachectic or obese HEENT Reports moist mucous membranes Negative for trauma or tenderness Eyes PERRL and EOMs intact bilaterally General Eye ED: Negative for pale conjunctiva or scleral icterus Neck no lymphadenopathy, supple and no JVD General: Negative for tenderness Lymph Lymphatic: Negative for other Chest Wall inspection of chest normal and palpation of chest normal Resp normal respiratory effort and No clear to auscultation bilaterally Auscultation: wheezes Cardio regular rhythm, S1 normal heart sound, S2 normal heart sound and no murmurs; Negative for regular rate Rate: tachycardic GI normal to inspection, nondistended, normoactive bowel sounds, non-tender, non-distended and no masses Palpation: soft; Negative for tender, guarding or rebound tenderness present Back/Spine no CVA tenderness General Back: Negative for CVA tenderness Cervical Spine: Negative for cervical spine tenderness Thoracic Spine / Upper Back: Negative for thoracic spinal tenderness or paraspinal muscle tenderness Lumbar Spine / Lower Back: Negative for lumbar spinal tenderness Extremity normal to inspection General Extremety ED: Negative for edema or tenderness General Extremity: Negative for edema Neuro oriented x3, CN's II-XII intact bilaterally and no sensory deficits noted Sensorium / Orientation: alert; Negative for orientation impaired, lethargic or stuporous Motor Exam: strength 5/5 throughout Psych mental status grossly normal Appearance: Negative for unkempt Attitude: No agitated Mood & Affect: anxious; Negative for depressed or tearful Skin no rashes or lesions noted, no wounds and skin turgor normal General Skin Exam: elasticity normal; Negative for jaundice or pallor Lesions: No lesion noted Rashes: No rashes noted Trauma: Negative for abrasion Wounds: Negative for wounds noted MDM MDM MDM Narrative Medical decision making narrative: 43-year-old with cough may have URI or all pneumonia. She has chest pain there is a reproducible component to this of her anterior chest wall. This could be musculoskeletal. She undergo a cardiac etiology. Also due to her younger age D-dimer be obtained to rule out PE. She does not have any risk factors for DVT or PE or family history. She has never had one before. Repeat exam patient is doing well at 10:43 AM. She is having no active bleeding. I did a rectal exam with her and nurse present in the room. There was no stool whatsoever. There is no gross blood. There is no melena. Rectal exam is nontender. No mass. We discussed her lab test. I reviewed her CTA wait for the formal read I think this is all from her anemia causing her to have the shortness of breath. The chest pain also seems reproducible. She has been typed and crossed for 4 units. Should be transfused 2. I have the hospitalist on page for admission. The anemia may be from heavy vaginal bleeding they can consult FINANCIAL RECORDING CLERK as needed and/or get a pelvic ultrasound as needed. History & Record Review Discussion w/independent historian: Patient and Family Additional record(s) reviewed:: Prior inpatient record, Prior outpatient record, Prior ED visit and Prior labs Lab Data Attestation: I reviewed the patient's lab results. Lab results narrative: CBC shows a white count 8.9. H and H of 3.9 of 14.4. Platelets 338. D-dimer is elevated at 1.05. CMP shows a normal gap of 8. Normal BUN 9 and creatinine 0.5. Liver enzymes are unremarkable. Glucose 102. Lipase normal at 63. Troponin is normal at 4. Labs: Laboratory Results - last 24 hr 03/19/24 03/19/24 09:58 10:17 WBC 8.9 RBC 1.85 L Hgb 3.9 L* Hct 14.4 L MCV 77.8 L MCH 21.1 L MCHC 27.1 L RDW Std Deviation 65.0 H RDW Coeff of Govind 23.1 H Plt Count 338 MPV 9.3 Immature Gran % (Auto) 0.600 Neut % (Auto) 80.5 H Lymph % (Auto) 12.6 L [place] % (Auto) 6.0 Eos % (Auto) 0.2 Baso % (Auto) 0.1 Absolute Neuts (auto) 7.2 Absolute Lymphs (auto) 1.12 Nucleated RBC % 0 Diff Path Review May foll Platelet Estimate A Polychromasia 1+ Anisocytosis 2+ Tear Drop Cells 1+ Ovalocytes 1+ Acanthocytes (Spur) 1+ D-Dimer Quant (PE/DVT) 1.05 H* Sodium 139 Potassium 4.3 Chloride 106 Carbon Dioxide 25.0 Anion Gap 8 BUN 9 Creatinine 0.59 Estim Creat Clear Calc 104.56 Est GFR (MDRD) Af Amer 143 Est GFR (MDRD) Non-Af 118 BUN/Creatinine Ratio 15.3 Glucose 102 Calcium 9.4 Total Bilirubin 0.60 AST 15 ALT 23 Alkaline Phosphatase 84 Troponin I High Sens 4 Total Protein 6.8 Albumin 2.8 L Globulin 4.0 Albumin/Globulin Ratio 0.7 L Lipase 63 Crossmatch See Detail Radiography Chest X-Ray - ED: 2 View, Read by ED Physician, Normal, Heart, Lungs, Mediastinum, Bony Structures and No Acute Disease Diagnostic Testing: Chest x-ray, 2 views, AP and lateral, interpreted by myself shows no acute abnormality. Normal cardiac silhouette. Normal lung lozada. No pneumonia. Rhythm Strip Rhythm Strip: Sinus Tach Rate: 106 Ectopy: None EKG Initial EKG: Attestation: I personally reviewed and interpreted this EKG as follows: Interpretation: No Acute Injury Pattern and Sinus Tachycardia Comments: Sinus tachycardia rate of 106. No acute signs of OK nor ischemia. Discharge Plan Triage Chief Complaint: General Illness ED Provider: Severiano Serrano Dx/Rx/DC Orders Clinical Impression: Anemia requiring transfusions, Acute dyspnea, Chest pain, Episode of heavy vaginal bleeding Prescriptions: No Action duloxetine 30 mg Capsule,Delayed Release(Dr/Ec) 30 mg PO DAILY Qty: 30 0RF nystatin 100,000 unit/mL Suspension 500,000 unit PO 4X/DAY 7 Days Qty: 140 0RF pantoprazole 40 mg Tablet,Delayed Release (Dr/Ec) 40 mg PO DAILY Qty: 30 0RF trazodone 100 mg Tablet 100 mg PO QHS PRN (Reason: Insomnia) Qty: 30 0RF multivitamin Tablet 1 tab PO DAILY Qty: 30 0RF Primary Care Provider: Care Physician,No Primary Referrals: Care Physician,No Primary [Primary Care Provider] - Print Language: Mexican Disposition Disposition: Acute Care [facility]
[2024-03-19] MEDS: Ipratropium/Albuterol Sulfate 3 ML AMPUL.NEB INHALATION (10:01)
[2024-03-19 10:08] LABS: Absolute Lymphocyte Count 1.12 X10^3/uL (0.83-4.51); Absolute Neutrophil Count 7.2 X10^3/uL (2.0-7.7); Basophil# 0.01 X10^3/uL; Basophil% 0.1 % (0-1); Eosinophil# 0.02 X10^3/uL; Eosinophils% 0.2 % (0-5); Hematocrit 14.4 % (37-47); Lymphocyte # 1.12 X10^3/ul (0.83-4.51); Lymphocyte % 12.6 % (19-41); Mean Corp Hgb Conc 27.1 g/dL (32-36); Mean Corpuscular Hgb 21.1 pg (27.0-32.0); Mean Corpuscular Volume 77.8 fL (81-99); Mean Platelet Vol. 9.3 fl (6.2-12.0); Monocyte# 0.53 X10^3/uL; NRBC Flagged by Analyzer 0 % (0-5); Neutrophil # 7.16 X10^3/uL (2.7-7.7); Neutrophil % 80.5 % (47-70); POSITIVE COUNT YES; POSITIVE MORPHOLOGY YES; Platelet Count 338 K/mm3 (150-450); RBC Distribution Width CV 23.1 % (11.6-14.6); Red Blood Count 1.85 M/mm3 (4.2-5.4); White Blood Count 8.9 K/mm3 (4.4-11.0)
[2024-03-19 10:14] LABS: Differential Indicated SCAN CRITERIA MET; Hemoglobin 3.9 g/dL (12.0-15.0)
--- NOTE | 2024-03-19 10:20 | RAD_ITS ---
STUDY: X-RAY CHEST REASON FOR EXAM: Female, 43 years old. Chest pain TECHNIQUE: PA and lateral views of the chest. COMPARISON: None. FINDINGS: EKG electrodes are seen. The lungs are clear and expanded. There is no demonstrated pleural abnormality. Normal size heart. Normal mediastinum and varsha. Normal visualized pulmonary arteries. Normal visualized aortic arch and descending thoracic aorta. Normal visualized thoracic spine. Normal visualized ribs, clavicles, and shoulders. There is no demonstrated abnormality of the visualized soft tissue structures of the upper abdomen. RAD/Chest PA and Lateral IMPRESSION: Normal x-ray examination of the chest. Electronically Signed: River Ho MD at 11:23 EST ,
[2024-03-19 10:24] LABS: D-Dimer Quantitative (DVT/PE) 1.05 FEU/ug/m (0.27-0.49)
--- NOTE | 2024-03-19 10:24 | CT_ITS ---
STUDY: CTA CHEST REASON FOR EXAM: Female, 43 years old. cp, dyspnea and elevated d-dimer RADIATION DOSAGE (If Supplied By Facility): CTDIvol = ( 4.92 ) mGy, DLP = ( 185.89 ) mGycm TECHNIQUE: The examination was performed with the intravenous administration of IV 75mL [id number]-370. Post-processing of the angiographic images was performed, with multiplanar reformation and 3D reconstruction. Individualized dose optimization techniques were used for this CT. COMPARISON: Comparison is made with prior chest radiograph done earlier in the day. FINDINGS: There is evidence of bilateral breast implants. Normal enhancement of the main pulmonary artery and right and left pulmonary arteries. Normal enhancement of the bilateral peripheral pulmonary arteries. There is no demonstrated pulmonary embolism. Normal thoracic aorta and visualized great vessels. There is no demonstrated aortic dissection. Normal heart and pericardium. Normal mediastinum. Normal hilar regions. Normal visualized trachea and bronchi. The lungs are well expanded. Normal pulmonary parenchyma. Small right pleural effusion. Minimal atelectasis at the right lung base. Normal chest wall structures. Normal osseous structures. Small hiatal hernia. CT/CTA Chest W/WO Contrast IMPRESSION: Small right pleural effusion and minimal atelectasis at the right lung base. Electronically Signed: River Ho MD at 11:27 EST ,
[2024-03-19 10:27] LABS: ALB/GLOB Ratio 0.7 RATIO (0.9-2.4); AST(SGOT) 15 U/L (15-37); Alanine Aminotransfer ALT/SGPT 23 U/L (13-56); Albumin, Serum 2.8 g/dL (3.2-5.0); Alkaline Phosphatase 84 U/L (45-117); Anion Gap 8 (5-15); BUN 9 mg/dL (7-18); BUN/Creat Ratio 15.3 RATIO (10-20); Calcium,Total 9.4 mg/dL (8.5-10.1); Chloride 106 mmol/L (98-107); Creatinine, Serum 0.59 mg/dL (0.55-1.02); EST Glomerular Filtration Rate 118 mL/min (>60); Est Glom Filt Rate - Afr Amer 143 mL/min (>60); Estimated Creatinine Clearance 104.56 ml/min; Glucose 102 mg/dL (74-106); Lipase 63 U/L (13-75); Potassium 4.3 mmol/L (3.5-5.1); Protein, Total 6.8 g/dL (6.4-8.2); Sodium Level 139 mmol/L (136-145); Troponin-I HS 4 pg/mL (3.0-54.0)
[2024-03-19 10:38] LABS: Acanthocytes 1+; Ovalocyte 1+
[2024-03-19 10:39] LABS: Anisocytosis 2+; Platelet Estimate A (ADEQ); Polychromasia 1+
[2024-03-19 10:40] LABS: Tear Drop Cell 1+
[2024-03-19 11:06] LABS: Platelet Count 346 K/mm3 (150-450); Reticulocyte Count 4.19 % (0.5-1.5)
[2024-03-19 11:12] LABS: International Normalized Ratio 0.9; Prothrombin Time (Protime)PT. 12.6 SECONDS (11.7-14.9)
[2024-03-19 11:13] LABS: Partial Thromboplast Time 25.3 Seconds (24.1-36.2)
[2024-03-19 11:20] LABS: Ferritin 4 ng/mL (8-252); Iron 12 ug/dL (50-170); Iron Binding Capacity,Total 445 ug/dL (250-450); PERCENT IRON SATURATION 2.7 % (15.0-55.0)
--- NOTE | 2024-03-19 11:43 | EDS_ITS ---
HPI History of Present Illness Chief Complaint: General Illness [facility] Medical History Alcoholism Physical exam, pre-employment Thrombocytopenia Iron deficiency anemia Alcoholic hepatitis Pancytopenia ETOH abuse Alcohol abuse Home Medications ?Medication ?Instructions ?Recorded ?Last Taken ?Type multivitamin 1 tab PO DAILY #30 tabs 07/18/22 03/18/24 Rx Lactobacillus acidophilus 10 10,000 mmu cells PO DAILY 03/19/24 03/18/24 History billion cell capsule (Probacap) ibuprofen 200 mg tablet (Advil) 400 mg PO Q6H PRN fever or pain 03/19/24 03/19/24 History melatonin 5 mg capsule 5 mg PO QHS 03/19/24 03/18/24 History multivitamin with minerals 1 tab PO DAILY 03/19/24 03/18/24 History (Hair,Skin and Nails tablet) vitamin E 268 mg (400 unit) capsule 268 mg PO DAILY 03/19/24 03/18/24 History Allergy/AdvReac Type Severity Reaction Status Date / Time No Known Allergies Allergy Verified 03/19/24 09:24 Family History Other Cancer Heart disease Surgical History History of tonsillectomy Social History household members: none housing: house 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 Smoking Status: Never smoker alcohol intake: current alcohol intake frequency: 3 or more drinks per day Previous attempts at quittin details: Patient is currently drinking approximately 2 L of vodka a day substance use type: does not use EXAM Physical Exam Const Vital Signs: 03/19/24 09:24 03/19/24 10:05 03/19/24 10:37 Temperature 98.3 F Temperature Source Oral Pulse Rate 115 H 115 H Respiratory Rate 16 16 Respiratory Effort Respiratory Pattern Blood Pressure 119/70 Blood Pressure Mean 86 Pulse Ox 100 100 Oxygen Delivery Method Room Air Room Air 03/19/24 10:38 Temperature Temperature Source Pulse Rate Respiratory Rate Respiratory Effort Normal Non-Labored Respiratory Pattern Normal Blood Pressure Blood Pressure Mean Pulse Ox Oxygen Delivery Method [facility] MDM Lab Data Labs: Laboratory Results - last 24 hr 03/19/24 03/19/24 09:58 10:17 WBC 8.9 RBC 1.85 L Hgb 3.9 L* Hct 14.4 L MCV 77.8 L MCH 21.1 L MCHC 27.1 L RDW Std Deviation 65.0 H RDW Coeff of Govind 23.1 H Plt Count 338 MPV 9.3 Immature Gran % (Auto) 0.600 Neut % (Auto) 80.5 H Lymph % (Auto) 12.6 L [place] % (Auto) 6.0 Eos % (Auto) 0.2 Baso % (Auto) 0.1 Absolute Neuts (auto) 7.2 Absolute Lymphs (auto) 1.12 Nucleated RBC % 0 Diff Path Review May foll Platelet Estimate A Polychromasia 1+ Anisocytosis 2+ Tear Drop Cells 1+ Ovalocytes 1+ Acanthocytes (Spur) 1+ Retic Count 4.19 H Immature Retic Fraction 45.60 H Retic Hgb Equivalent 16.0 L PT 12.6 INR 0.9 APTT 25.3 D-Dimer Quant (PE/DVT) 1.05 H* Sodium 139 Potassium 4.3 Chloride 106 Carbon Dioxide 25.0 Anion Gap 8 BUN 9 Creatinine 0.59 Estim Creat Clear Calc 104.56 Est GFR (MDRD) Af Amer 143 Est GFR (MDRD) Non-Af 118 BUN/Creatinine Ratio 15.3 Glucose 102 Calcium 9.4 Iron 12 L TIBC 445 Iron Saturation 2.7 L Ferritin 4 L Total Bilirubin 0.60 AST 15 ALT 23 Alkaline Phosphatase 84 Troponin I High Sens 4 Total Protein 6.8 Albumin 2.8 L Globulin 4.0 Albumin/Globulin Ratio 0.7 L Lipase 63 Blood Type A POSITIVE Antibody Screen NEGATIVE Crossmatch See Detail Radiography Diagnostic Testing: Clinical Impression(s) from Imaging Studies Chest X-Ray 03/19/24 10:20 IMPRESSION: Normal x-ray examination of the chest. Electronically Signed: River Ho MD at 11:23 EST , Chest CTA 03/19/24 10:24 IMPRESSION: Small right pleural effusion and minimal atelectasis at the right lung base. Electronically Signed: River Ho MD at 11:27 EST , Rhythm Strip Rhythm Strip: Sinus Tach Rate: 106 Ectopy: None Discharge Plan Dx/Rx/DC Orders Clinical Impression: Anemia requiring transfusions, Acute dyspnea, Chest pain, Episode of heavy vaginal bleeding Disposition Disposition: Acute Care Hospital [facility]
--- NOTE | 2024-03-19 14:13 | ED.RN ---
Pt fever 99.2 on 15 minute blood check. Blood stopped, Dr. Serrano made aware. Verbal order for 1000 mg Tylenol entered into pt chart.
[2024-03-19] MEDS: Acetaminophen 500 MG Tablet 1000 MG PO (14:15)
--- NOTE | 2024-03-19 15:00 | HP.PCM.HOS_ITS ---
HPI - General General Date of Admission: 03/19/24 HPI Narrative MANDEEP MATAMOROS, is a 43 F who presents to the hospital with shortness of breath as well as chest pain for the last couple days. She says that she has been having very heavy menstrual bleeding for 12 days to the point where she was changing tampons 4 times an hour. She says it is extremely abnormal for her as she normally has a 4-day cycle where she has somewhat heavy bleeding on the first day that tapers off quickly. She says that she has stopped bleeding and does not think that she could be or miscarried. She is also complaining with some burning urination and thinks she might have a UTI. She denies any hematemesis or hematochezia or melena. She does have a previous history of alcohol abuse though she says her last drink was about 3 weeks ago. In her history she has had an EGD for Latoya-Gauthier tear that did demonstrate some erosive gastritis but she is denying any bloody bowel movements or hematemesis at this time. She was found to have a hemoglobin of 3.9 and was ordered 4 units of blood with 2 to be transfused and to to be held. She does have an appropriate reticulocyte response and she demonstrates a significant iron deficiency with an iron of 12 and a saturation of 2.7 and a ferritin of 8. [facility] Medical History Alcoholism Physical exam, pre-employment Thrombocytopenia Iron deficiency anemia Alcoholic hepatitis Pancytopenia ETOH abuse Alcohol abuse Home Medications ?Medication ?Instructions ?Recorded ?Last Taken ?Type multivitamin 1 tab PO DAILY #30 tabs 07/18/22 03/18/24 Rx Lactobacillus acidophilus 10 10,000 mmu cells PO DAILY 03/19/24 03/18/24 History billion cell capsule (Probacap) ibuprofen 200 mg tablet (Advil) 400 mg PO Q6H PRN fever or pain 03/19/24 03/19/24 History melatonin 5 mg capsule 5 mg PO QHS 03/19/24 03/18/24 History multivitamin with minerals 1 tab PO DAILY 03/19/24 03/18/24 History (Hair,Skin and Nails tablet) vitamin E 268 mg (400 unit) capsule 268 mg PO DAILY 03/19/24 03/18/24 History Allergy/AdvReac Type Severity Reaction Status Date / Time No Known Allergies Allergy Verified 03/19/24 09:24 Family History Other Cancer Heart disease Surgical History History of tonsillectomy Social History household members: none housing: house 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 Smoking Status: Never smoker alcohol intake: current alcohol intake frequency: 3 or more drinks per day Previous attempts at quittin details: Patient is currently drinking approximately 2 L of vodka a day substance use type: does not use ROS Constitutional Constitutional: Reports fatigue; Denies chills, fever(s) or malaise Eyes Eyes: Denies blurry vision ENT HEENT: Denies headache(s) or nasal discharge Cardiovascular Cardiovascular: Reports dyspnea on exertion; Denies chest pain or syncope Respiratory/Chest Respiratory/Chest: Denies cough, shortness of breath at rest or shortness of breath with exertion Gastrointestinal Gastrointestinal: Denies constipation, diarrhea, nausea or vomiting Genitourinary Genitourinary: Reports other Details: Menorrhagia ; Denies dysuria Neurologic Neurologic: Denies focal weakness, numbness or tremor(s) Psychiatric Psychiatric: Denies anxiety or depression Vital Signs Vital Signs Vital Signs: 03/19/24 09:24 03/19/24 10:05 03/19/24 10:37 Temperature 98.3 F Temperature Source Oral Pulse Rate 115 H 115 H Respiratory Rate 16 16 Respiratory Effort Respiratory Pattern Blood Pressure 119/70 Blood Pressure Mean 86 Blood Pressure Source Blood Pressure Position Blood Pressure Location Pulse Ox 100 100 Oxygen Delivery Method Room Air Room Air 03/19/24 10:38 03/19/24 11:44 03/19/24 11:45 Temperature 98.3 F 98.3 F Temperature Source Oral Oral Pulse Rate 121 H 114 H Respiratory Rate 26 H 14 Respiratory Effort Normal Non-Labored Respiratory Pattern Normal Blood Pressure 105/72 107/47 L Blood Pressure Mean 83 67 Blood Pressure Source Monitor Blood Pressure Position Supine Blood Pressure Location Right Arm Pulse Ox 100 100 Oxygen Delivery Method Room Air Room Air 03/19/24 11:54 03/19/24 12:53 03/19/24 13:26 Temperature 98.4 F 98.3 F 99 F Temperature Source Oral Oral Oral Pulse Rate 103 H 104 H 91 Respiratory Rate 15 16 18 Respiratory Effort Respiratory Pattern Blood Pressure 109/74 111/68 123/78 H Blood Pressure Mean 85 82 93 Blood Pressure Source Monitor Monitor Blood Pressure Position Supine Semi-Fowlers Blood Pressure Location Right Arm Right Arm Pulse Ox 100 100 100 Oxygen Delivery Method Room Air Room Air Room Air 03/19/24 13:41 03/19/24 13:49 03/19/24 14:04 Temperature 99 F 99 F 99.2 F H Temperature Source Oral Oral Oral Pulse Rate 94 97 96 Respiratory Rate 17 18 16 Respiratory Effort Respiratory Pattern Blood Pressure 105/78 116/81 H 112/80 Blood Pressure Mean 87 92 90 Blood Pressure Source Monitor Monitor Monitor Blood Pressure Position Supine Supine Supine Blood Pressure Location Right Arm Right Arm Right Arm Pulse Ox 100 100 100 Oxygen Delivery Method Room Air Room Air Room Air 03/19/24 14:04 03/19/24 14:35 03/19/24 14:46 Temperature 99.2 F H 98.7 F 98.7 F Temperature Source Oral Oral Pulse Rate 96 97 Respiratory Rate 16 14 Respiratory Effort Respiratory Pattern Blood Pressure 112/80 105/56 L Blood Pressure Mean 90 72 Blood Pressure Source Monitor Blood Pressure Position Supine Blood Pressure Location Right Arm Pulse Ox 100 100 Oxygen Delivery Method Room Air Weight Weight: 120 lb Body Mass Index (BMI) 20.0 Physical Exam Narrative General: Alert, Oriented x3, Cooperative, No apparent distress HEENT: Atraumatic, PERRLA, EOMI, Normocephalic, pale Oral: Moist Mucosa Neck: Supple, No JVD Lungs: Diminished, Normal air movement, No rhonchi, No wheeze, No rales Cardiovascular: Tachycardic, Regular Rhythm, Normal S1, Normal S2, No murmurs Abdomen: Soft, Non Tender, Non-Distended, No Hepato-splenomegaly Extremities: No edema Skin: No rashes, No breakdown Musculoskeletal: No Tenderness to Palpation of Joints or Extremities Neurological: No focal neurological deficits, Motor Exam 5/5 strength throughout, Sensory exam intact to light touch and pain Psych/Mental Status: Normal Affect, Appropriate Results Lab / Micro Data 03/19/24 09:58 03/19/24 09:58 Labs: Laboratory Results - last 24 hr 03/19/24 09:58: WBC 8.9, RBC 1.85 L, Hgb 3.9 L*, Hct 14.4 L, MCV 77.8 L, MCH 21.1 L, MCHC 27.1 L, RDW Std Deviation 65.0 H, RDW Coeff of Govind 23.1 H, Plt Count 338, MPV 9.3, Immature Gran % (Auto) 0.600, Neut % (Auto) 80.5 H, Lymph % (Auto) 12.6 L, [place] % (Auto) 6.0, Eos % (Auto) 0.2, Baso % (Auto) 0.1, Absolute Neuts (auto) 7.2, Absolute Lymphs (auto) 1.12, Nucleated RBC % 0, Diff Path Review May , Platelet Estimate A, Polychromasia 1+, Anisocytosis 2+, Tear Drop Cells 1+, Ovalocytes 1+, Acanthocytes (Spur) 1+, Retic Count 4.19 H, I mmature Retic Fraction 45.60 H, Retic Hgb Equivalent 16.0 L, PT 12.6, INR 0.9, APTT 25.3, D-Dimer Quant (PE/DVT) 1.05 H*, Sodium 139, Potassium 4.3, Chloride 106, Carbon Dioxide 25.0, Anion Gap 8, BUN 9, Creatinine 0.59, Estim Creat Clear Calc 104.56, Est GFR (MDRD) Af Amer 143, Est GFR (MDRD) Non-Af 118, BUN/Creatinine Ratio 15.3, Glucose 102, Calcium 9.4, Iron 12 L, TIBC 445, Iron Saturation 2.7 L, Ferritin 4 L, Total Bilirubin 0.60, AST 15, ALT 23, Alkaline Phosphatase 84, Troponin I High Sens 4, Total Protein 6.8, Albumin 2.8 L, Globulin 4.0, Albumin/Globulin Ratio 0.7 L, Lipase 63 03/19/24 10:17: Blood Type A POSITIVE, Antibody Screen NEGATIVE, Crossmatch See Detail Rhythm Strip Rhythm Strip: Sinus Tach Rate: 106 Ectopy: None Imaging Radiology Impression Chest X-Ray 03/19/24 10:20 IMPRESSION: Normal x-ray examination of the chest. Electronically Signed: River Ho MD at 11:23 EST , Chest CTA 03/19/24 10:24 IMPRESSION: Small right pleural effusion and minimal atelectasis at the right lung base. Electronically Signed: River Ho MD at 11:27 EST , Assessment & Plan Assessment/Plan (1) Episode of heavy vaginal bleeding: (2) Acute anemia: PLAN: Plan 1. Menorrhagia with a combination of iron deficiency anemia and blood loss anemia ? Continue transfusions ? Every 4 H&H ? Will also likely need iron supplementation ? Beta-hCG is pending, if elevated will proceed with a transvaginal ultrasound and discussed with OB ? Urinalysis is also pending currently afebrile with no leukocytosis ? Will continue with Protonix and order a fecal occult to completely rule out a GI source given her previous history of a Latoya-Gauthier tear and erosive gastritis, of note no mention of varices on her last EGD DVT: SCDs 75 minutes was spent on direct patient care, including documentation as well as chart review and collaboration with colleagues Charges/Coding Visit Charges Inpatient E&M: 04550 Init Hosp L3
[2024-03-19] MEDS: hydrOXYzine PAM 25 MG Capsule PO (18:10)
[2024-03-19 19:01] LABS: Mucous, Urine 0 SEEN /hpf (<or=2+); Red Blood Cells-Urine 0 SEEN /hpf (0-5)
[2024-03-19 19:14] LABS: Color, Urine Red (Yellow); Glucose, Dipstick Normal (Normal); Ketone-Dipstick Negative (Negative); Leukocyte Esterase-Dipstick 25 /ul (Negative); Nitrite-Dipstick Positive (Negative); Occult Blood-Urine Negative /ul (Negative); Protein-Dipstick 30 mg/dl (Negative); Specific Gravity, Urine 1.005 (1.002-1.030); Urine Bilirubin Dipstick Negative (Negative); Urine Clarity Turbid (Clear); Urine Urobilinogen Normal (Normal)
[2024-03-19 19:33] LABS: Bacteria 1+ /hpf (None Seen)
[2024-03-19 19:34] LABS: Squamous Epithelial Cells - UA 25-50 SEEN /hpf (5-10)
[2024-03-19 19:36] LABS: White Blood Cells 10-25 SEEN /hpf (0-5)
[2024-03-19] MEDS: 0.9% Saline Lock 10 ML Syringe IV ×2 (20:14→21:15)
[2024-03-19] MEDS: Temazepam 15 MG Capsule PO (21:14)
[2024-03-19] MEDS: MELATONIN 3 MG TABLET PO (21:15)
[2024-03-19] MEDS: Morphine 2 MG/ML Syringe IV (21:15)
[2024-03-19] MEDS: Pantoprazole Sodium 40 MG in 0.9% Normal Saline (100mL MB+) 100 ML 330 MG IV (22:21)
[2024-03-20 00:08] LABS: Hematocrit 27.8 % (37-47); Hemoglobin 8.9 g/dL (12.0-15.0)
[2024-03-20 02:36] LABS: Absolute Lymphocyte Count 1.22 X10^3/uL (0.83-4.51); Absolute Neutrophil Count 5.4 X10^3/uL (2.0-7.7); Basophil# 0.05 X10^3/uL; Basophil% 0.7 % (0-1); Eosinophil# 0.03 X10^3/uL; Eosinophils% 0.4 % (0-5); Hematocrit 28.2 % (37-47); Lymphocyte # 1.22 X10^3/ul (0.83-4.51); Lymphocyte % 16.9 % (19-41); Mean Corp Hgb Conc 31.9 g/dL (32-36); Mean Corpuscular Hgb 25.9 pg (27.0-32.0); Mean Platelet Vol. 9.1 fl (6.2-12.0); Monocyte# 0.52 X10^3/uL; Monocyte% 7.2 % (0-10); NRBC Flagged by Analyzer 0.4 % (0-5); Neutrophil # 5.35 X10^3/uL (2.7-7.7); Neutrophil % 74.2 % (47-70); Platelet Count 229 K/mm3 (150-450); RBC Distribution Width CV 17.6 % (11.6-14.6); RBC Distribution Width SD 52.3 fl (35.1-43.9); Red Blood Count 3.48 M/mm3 (4.2-5.4); White Blood Count 7.2 K/mm3 (4.4-11.0)
[2024-03-20 04:30] VITALS: BP 125/84; PULSE 101; RESP 16; TEMP 36.7; O2SAT 94
[2024-03-20 06:31] LABS: Absolute Lymphocyte Count 0.98 X10^3/uL (0.83-4.51); Absolute Neutrophil Count 6.6 X10^3/uL (2.0-7.7); Basophil# 0.07 X10^3/uL; Basophil% 0.9 % (0-1); Eosinophil# 0.06 X10^3/uL; Eosinophils% 0.7 % (0-5); Hematocrit 29.2 % (37-47); Hemoglobin 9.2 g/dL (12.0-15.0); Lymphocyte # 0.98 X10^3/ul (0.83-4.51); Mean Corp Hgb Conc 31.5 g/dL (32-36); Mean Corpuscular Volume 79.3 fL (81-99); Mean Platelet Vol. 8.9 fl (6.2-12.0); Monocyte# 0.45 X10^3/uL; Monocyte% 5.5 % (0-10); NRBC Flagged by Analyzer 0.2 % (0-5); Neutrophil # 6.56 X10^3/uL (2.7-7.7); Platelet Count 253 K/mm3 (150-450); RBC Distribution Width CV 17.6 % (11.6-14.6); RBC Distribution Width SD 51.4 fl (35.1-43.9); Red Blood Count 3.68 M/mm3 (4.2-5.4); White Blood Count 8.2 K/mm3 (4.4-11.0)
[2024-03-20 06:55] LABS: Anion Gap 6 (5-15); BUN 5 mg/dL (7-18); BUN/Creat Ratio 11.8 RATIO (10-20); Calcium,Total 9.1 mg/dL (8.5-10.1); Chloride 107 mmol/L (98-107); Creatinine, Serum 0.42 mg/dL (0.55-1.02); EST Glomerular Filtration Rate 172 mL/min (>60); Est Glom Filt Rate - Afr Amer 209 mL/min (>60); Glucose 88 mg/dL (74-106); Potassium 4.2 mmol/L (3.5-5.1); Sodium Level 137 mmol/L (136-145)
[2024-03-20] MEDS: hydrOXYzine PAM 25 MG Capsule PO (08:17)
--- NOTE | 2024-03-20 10:11 | PN.HOSP_ITS ---
Subjective Subjective No issues overnight, feels a little bit better from a shortness of breath standpoint. Still has a headache Objective Data Objective Data Vital Signs: Vital Signs Temp Pulse Resp BP Pulse Ox O2 Del Method 98.0 F 101 H 16 125/84 H 94 Room Air 03/20/24 04:30 03/20/24 04:30 03/20/24 04:30 03/20/24 04:30 03/20/24 04:30 03/20/24 07:45 Oxygen Delivery Method Room Air Weight: 124 lb 1.6 oz Body Mass Index (BMI) 20.6 Intake & Output: Intake and Output for Last 24 Hours 03/19/24 03/20/24 03/21/24 03:59 03:59 03:59 Intake Total 1610 / 1610 0 / 0 Output Total 200 / 200 350 / 350 Balance 1410 / 1410 -350 / -350 Lab / Micro Data 03/20/24 06:20 03/20/24 06:20 Labs: Laboratory Results - last 24 hr 03/19/24 09:58: WBC 8.9, RBC 1.85 L, Hgb 3.9 L*, Hct 14.4 L, MCV 77.8 L, MCH 21.1 L, MCHC 27.1 L, RDW Std Deviation 65.0 H, RDW Coeff of Govind 23.1 H, Plt Count 338, MPV 9.3, Immature Gran % (Auto) 0.600, Neut % (Auto) 80.5 H, Lymph % (Auto) 12.6 L, [place] % (Auto) 6.0, Eos % (Auto) 0.2, Baso % (Auto) 0.1, Absolute Neuts (auto) 7.2, Absolute Lymphs (auto) 1.12, Nucleated RBC % 0, Diff Path Review May foll, Platelet Estimate A, Polychromasia 1+, Anisocytosis 2+, Tear Drop Cells 1+, Ovalocytes 1+, Acanthocytes (Spur) 1+, Retic Count 4.19 H, I mmature Retic Fraction 45.60 H, Retic Hgb Equivalent 16.0 L, PT 12.6, INR 0.9, APTT 25.3, D-Dimer Quant (PE/DVT) 1.05 H*, Sodium 139, Potassium 4.3, Chloride 106, Carbon Dioxide 25.0, Anion Gap 8, BUN 9, Creatinine 0.59, Estim Creat Clear Calc 104.56, Est GFR (MDRD) Af Amer 143, Est GFR (MDRD) Non-Af 118, BUN/Creatinine Ratio 15.3, Glucose 102, Calcium 9.4, Iron 12 L, TIBC 445, Iron Saturation 2.7 L, Ferritin 4 L, Total Bilirubin 0.60, AST 15, ALT 23, Alkaline Phosphatase 84, Troponin I High Sens 4, Total Protein 6.8, Albumin 2.8 L, Globulin 4.0, Albumin/Globulin Ratio 0.7 L, Lipase 63 03/19/24 10:17: Blood Type A POSITIVE, Antibody Screen NEGATIVE, Crossmatch See Detail 03/19/24 18:53: Urine Color Red, Urine Clarity Turbid, Urine pH 7.0, Ur Specific [place] 1.005, Urine Protein 30 H, Urine Glucose (UA) Normal, Urine Ketones Negative, Urine Occult Blood Negative, Urine Nitrite Positive H, Urine Bilirubin Negative, Urine Urobilinogen Normal, Ur Leukocyte Esterase 25 H, Urine RBC 0 SEEN, Urine WBC 10-25 SEEN, Ur Squamous Epith Cells 25-50 SEEN, Urine Bacteria 1+, Urine Mucus 0 SEEN 03/19/24 22:23: Hgb 8.9 L, Hct 27.8 L 03/20/24 02:29: WBC 7.2, RBC 3.48 L, Hgb 9.0 L, Hct 28.2 L, MCV 81.0, MCH 25.9 L , MCHC 31.9 L D, RDW Std Deviation 52.3 H, RDW Coeff of Govind 17.6 H, Plt Count 229, MPV 9.1, Immature Gran % (Auto) 0.600, Neut % (Auto) 74.2 H, Lymph % (Auto) 16.9 L, [place] % (Auto) 7.2, Eos % (Auto) 0.4, Baso % (Auto) 0.7, Absolute Neuts (auto) 5.4, Absolute Lymphs (auto) 1.22, Nucleated RBC % 0.4 03/20/24 06:20: WBC 8.2, RBC 3.68 L, Hgb 9.2 L, Hct 29.2 L, MCV 79.3 L, MCH 25.0 L, MCHC 31.5 L, RDW Std Deviation 51.4 H, RDW Coeff of Govind 17.6 H, Plt Count 253, MPV 8.9, Immature Gran % (Auto) 0.900, Neut % (Auto) 80.0 H, Lymph % (Auto) 12.0 L, [place] % (Auto) 5.5, Eos % (Auto) 0.7, Baso % (Auto) 0.9, Absolute Neuts (auto) 6.6, Absolute Lymphs (auto) 0.98, Nucleated RBC % 0.2, Sodium 137, Potassium 4.2, Chloride 107, Carbon Dioxide 24.0, Anion Gap 6, BUN 5 L, C reatinine 0.42 L, Estim Creat Clear Calc 151.90, Est GFR (MDRD) Af Amer 209, Est GFR (MDRD) Non-Af 172, BUN/Creatinine Ratio 11.8, Glucose 88, Calcium 9.1 Radiography Diagnostic Testing: Radiology Impression Chest X-Ray 03/19/24 10:20 IMPRESSION: Normal x-ray examination of the chest. Electronically Signed: River Ho MD at 11:23 EST , Chest CTA 03/19/24 10:24 IMPRESSION: Small right pleural effusion and minimal atelectasis at the right lung base. Electronically Signed: River Ho MD at 11:27 EST , Rhythm Strip Rhythm Strip: Sinus Tach Rate: 106 Ectopy: None Physical Exam Narrative General: Alert, Oriented x3, Cooperative, No apparent distress HEENT: Atraumatic, PERRLA, EOMI, Normocephalic, pale Oral: Moist Mucosa Neck: Supple, No JVD Lungs: Diminished, Normal air movement, No rhonchi, No wheeze, No rales Cardiovascular: Regular rate, Regular Rhythm, Normal S1, Normal S2, No murmurs Abdomen: Soft, Non Tender, Non-Distended, No Hepato-splenomegaly Extremities: No edema Skin: No rashes, No breakdown Musculoskeletal: No Tenderness to Palpation of Joints or Extremities Neurological: No focal neurological deficits, Motor Exam 5/5 strength throughout, Sensory exam intact to light touch and pain Psych/Mental Status: Normal Affect, Appropriate Assessment & Plan Assessment/Plan (1) Episode of heavy vaginal bleeding: (2) Acute anemia: PLAN: Plan 1. Menorrhagia with a combination of iron deficiency anemia and blood loss anemia ? Hemoglobin is 9.2 after 4 units of blood ? Will give a dose of Venofer today ? Beta-hCG is pending, will obtain a transvaginal ultrasound ? UA is slightly positive, will give a dose of Rocephin while we obtain a urine culture ? Will continue with Protonix and order a fecal occult to completely rule out a GI source given her previous history of a Latoya-Gauthier tear and erosive gastritis, of note no mention of varices on her last EGD. In the meantime we will allow for regular diet as she says that her bleeding has stopped and the likelihood is low that it is a GI bleed DVT: SCDs Charges/Coding Visit Charges Inpatient E&M: 45407 Subs Hosp L2
--- NOTE | 2024-03-20 10:13 | US_ITS ---
STUDY: ULTRASOUND OF THE FEMALE PELVIS - COMPLETE REASON FOR EXAM: Female, 43 years old. Menorrhagia LMP: March 04, 2024. TECHNIQUE: Transvaginal TECHNICAL QUALITY: Adequate. COMPARISON: None. FINDINGS: The uterus is anteverted and is in a midline position. The uterus measures 11.8 cm x 6.8 cm x 5.3 cm. There is a Nabothian cyst of the cervix. The endometrium measures 11.3 mm in thickness, and is heterogeneous (striated). There is no demonstrated endometrial mass. Heterogeneous echotexture of the myometrium although no focal fibroid is seen. I.U.D. - The patient does not have an I.U.D. The right ovary is visualized. The right ovary measures 3.4 cm x 2.4 cm x 2.2 cm. There is no right ovarian cyst or ovarian mass. There is no visualized right adnexal mass or complex lesion. There is normal arterial and normal venous vascularity. The left ovary is visualized. The left ovary measures 5 cm x 3.7 cm x 2.9 cm. There is no left ovarian cyst or ovarian mass. There is no visualized left adnexal mass or complex lesion. There is normal arterial and normal venous vascularity. There is no fluid in the cul-de-sac. US/Transvaginal Non- IMPRESSION: Heterogeneous appearance of the myometrium. Thickened endometrium. Electronically Signed: River Ho MD at 15:16 EST ,
[2024-03-20 10:30] VITALS: BP 123/77; PULSE 97; RESP 16; TEMP 37.3; O2SAT 99
[2024-03-20] MEDS: Sodium Ferric Gluconat/Sucrose 125 MG in 0.9% Normal Saline (100mL Bag) 100 ML 110 MG IV (12:20)
--- NOTE | 2024-03-20 12:55 | CHAPLAIN ---
Type of Pastoral Visit _x__ Initial Visit ___ Follow-up Visit ___ On-call Visit ___ General Patient Visit ___ Spiritual Assessment ___ Family Conference ___ Bereavement ___ Rapid Response ___ Code Blue ___ Other (describe below) Pastoral Care Referral From _x__ Patient ___ Family ___ Nurse ___ Physician ___ Parts Facilitator ___ School Office Manager ___ Other (describe below) Sacrament/Intervention _x__ Active listening ___ Anointing ___ Episcopalian ___ Bereavement ___ Communion ___ Tonya exploration ___ _x__ Life review ___ Prayer ___ Reconciliation ___ Sacrament of Sick _x__ Supportive presence ___ Wedding ___ Other (describe below) Pastoral Comments patient gives a good amount of life review which includes parenthood, 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
[2024-03-20] MEDS: Pantoprazole Sodium 40 MG in 0.9% Normal Saline (100mL MB+) 100 ML 330 MG IV ×2 (13:22→22:27)
[2024-03-20 13:48] LABS: Internal QC Validated? YES +Cl - CLEAR BKGD; Pregnancy, Urine Negative Negative
[2024-03-20] MEDS: Ceftriaxone 1 GM/50 ML BAG IV (13:49)
--- NOTE | 2024-03-20 13:56 | CASEMGMT ---
Social Work SW met with pt and introduced self and role of SW. Pt is listed as no insurance. Pt states that she started a new job and is in the 90 day probation period before she can get insurance. Pt did apply for Medicaid and it is currently pending. Pt spoke with [facility] insurance representative. SW provided pt with information on prescription assistance programs, [employer], [employer] card. Pt appreciative of information and states no other needs at this time. EDUARDO Patterson
[2024-03-20 14:13] LABS: Pathologist Review Reviewed
--- NOTE | 2024-03-20 15:10 | CASEMGMT ---
RN KM TEAM OTR TRUCK DRIVER KM?to room to meet with patient for initial transition planning/care coordination assessment. RN KM?introduced self and role at [facility]. Pt voices understanding and consents to assessment?at this time. Pt resting in bed in no distress at this time. Pt is A/O at this time and answers all questions appropriately. Care providers, pharmacy, and demographics verified/updated at this time. Strata:?2 PCP: No PCP currently. Pt had a PCP for many years, but she retired and the practice closed. Pt has been provided w/[facility] info and also local PCP directory. Specialists: none Preferred Pharmacy: [facility] Insurance: No insurance currently. [place] is pending. See Mary LAMBERT, note. Prescription Benefit: none Living Will/HPOA: Pt does not currently have LW/HCPOA and declines info at this time. Pt made aware that she can contact as an out-pt and make appt in the future if she decides she would like to talk with someone about this or would like to utilize [facility] social work for advanced directive completion. LNOK: Pt has 3 children. One is an adult, 26-yrs old. (She also has a 13 & 11 yr-old). Mother, Patience. Sig other, Mariano. Father is . Living Arrangements: Lives w/sig other in one-story home w/4 steps to enter. Independent. Transportation:Pt states drives self and states no transportation concerns at this time. DME: Denies using any DME and denies needs. HHC/SNF: No hx of either. ETOH: Pt states she has a hx of ETOH abuse years ago when going through a divorce and went to [facility] for this. She denies having any further issues w/ETOH abuse, will have an occasional drink now w/out any issues, and denies needing resources. Pt wishes to return home and states has no concerns with going home at time of discharge. PLAN: Home Erica TEJADA RN, CM
[2024-03-20 16:30] VITALS: BP 121/84; PULSE 90; RESP 17; TEMP 37.3; O2SAT 97
[2024-03-20 19:26] LABS: Hematocrit 30.7 % (37-47); Hemoglobin 9.8 g/dL (12.0-15.0)
[2024-03-20 22:25] VITALS: BP 135/84; PULSE 84; RESP 16; TEMP 36.6; O2SAT 98
[2024-03-20] MEDS: Temazepam 15 MG Capsule PO (22:26)
[2024-03-20] MEDS: MELATONIN 3 MG TABLET PO (22:26)
[2024-03-20] MEDS: 0.9% Saline Lock 10 ML Syringe IV (22:27)
[2024-03-20] MEDS: Acetaminophen 325 MG Tablet 650 MG PO (22:27)
[2024-03-21 04:40] VITALS: BP 129/84; PULSE 83; RESP 16; TEMP 36.7; O2SAT 98
[2024-03-21 06:49] LABS: Absolute Lymphocyte Count 1.12 X10^3/uL (0.83-4.51); Absolute Neutrophil Count 4.1 X10^3/uL (2.0-7.7); Basophil# 0.05 X10^3/uL; Basophil% 0.9 % (0-1); Eosinophil# 0.06 X10^3/uL; Hematocrit 30.9 % (37-47); Hemoglobin 9.7 g/dL (12.0-15.0); Lymphocyte # 1.12 X10^3/ul (0.83-4.51); Lymphocyte % 19.1 % (19-41); Mean Corp Hgb Conc 31.4 g/dL (32-36); Mean Corpuscular Hgb 25.7 pg (27.0-32.0); Mean Platelet Vol. 9.1 fl (6.2-12.0); Monocyte# 0.45 X10^3/uL; Monocyte% 7.7 % (0-10); NRBC Flagged by Analyzer 0 % (0-5); Neutrophil # 4.13 X10^3/uL (2.7-7.7); Neutrophil % 70.6 % (47-70); Platelet Count 257 K/mm3 (150-450); RBC Distribution Width CV 18.9 % (11.6-14.6); RBC Distribution Width SD 55.6 fl (35.1-43.9); Red Blood Count 3.77 M/mm3 (4.2-5.4); White Blood Count 5.9 K/mm3 (4.4-11.0)
[2024-03-21 07:39] LABS: Anion Gap 5 (5-15); BUN 5 mg/dL (7-18); BUN/Creat Ratio 9.3 RATIO (10-20); Calcium,Total 9.4 mg/dL (8.5-10.1); Chloride 108 mmol/L (98-107); Creatinine, Serum 0.54 mg/dL (0.55-1.02); EST Glomerular Filtration Rate 131 mL/min (>60); Est Glom Filt Rate - Afr Amer 159 mL/min (>60); Estimated Creatinine Clearance 118.14 ml/min; Glucose 93 mg/dL (74-106); Potassium 3.7 mmol/L (3.5-5.1); Sodium Level 140 mmol/L (136-145)
[2024-03-21 08:54] VITALS: BP 126/99; PULSE 81; RESP 16; TEMP 36.7; O2SAT 95
[2024-03-21] MEDS: Acetaminophen 325 MG Tablet 650 MG PO (09:10)
--- NOTE | 2024-03-21 09:23 | DCINST_ITS ---
Discharge Instructions Diet Discharge Diet: No restrictions DC O2, CPAP, BIPAP needs Home O2 Discharge instructions: No Dressing / Incision Discharge Activity: Return to Normal Activity Dressing / Incision Call your doctor if you observe: Fever of 101 or Higher, Shortness of breath, Dizziness, Fainting spells, Swelling in the ankles, Chest pain and Increased palpitations (irregular heartbeat) Follow Up Care Test Results: Test results from this visit will be discussed in further detail at your follow- up appointment, if applicable. Discharge Plan Admission Admit Date/Time: 03/19/24 10:52 Attending Provider: Armando Barrett Primary Care Provider: Care Physician,No Primary Instructions Additional Instructions / Restrictions: Follow-up with your PCP to monitor your blood work and make sure that your ane dionna resolves. You are severely iron deficient so continue with the iron tablets that have been prescribed. Follow-up with gastroenterology as an outpatient for further evaluation, your stools did come back positive for blood though the majority of your anemia was due to your menorrhagia and your anemia has continued to improve. Start your cefdinir tomorrow morning. Discharge Orders/Prescriptions Prescriptions: New pantoprazole [Protonix] 40 mg tablet,delayed release (DR/EC) 40 mg PO DAILY Qty: 30 0RF ferrous gluconate 324 mg (38 mg iron) tablet 324 mg PO DAILY Qty: 30 0RF cefdinir 300 mg capsule 300 mg PO BID Qty: 2 0RF Continued multivitamin Tablet 1 tab PO DAILY Qty: 30 0RF melatonin 5 mg capsule 5 mg PO QHS Probacap 10 billion cell capsule 10,000 mmu cells PO DAILY Hair,Skin and Nails Tablet 1 tab PO DAILY vitamin E 268 mg (400 unit) capsule 268 mg PO DAILY hydroxyzine pamoate 25 mg capsule 25 mg PO Q6H PRN PRN (Reason: insomnia) Discontinued ibuprofen [Advil] 200 mg tablet 400 mg PO Q6H PRN (Reason: fever or pain) Referrals / Follow Up: Sahra Godfrey DO [Med Staff - Active Staff] - Within 2 Weeks Ryan Zayas DO [Med Staff - Active Staff] - Within 1 Month Care Physician,No Primary [Primary Care Provider] - Disposition Disposition (needs filled in before D/C Order can be placed): Home, Self Care
[2024-03-21 10:40] VITALS: BP 116/96; PULSE 103; RESP 16; TEMP 36.8; O2SAT 100
--- NOTE | 2024-03-21 10:55 | CON.PCM.GI_ITS ---
HPI Consult Data Date of Consult: 03/21/24 HPI Narrative Reason for Consultation: Anemia HPI Narrative: MANDEPE MATAMOROS, is a 43-year-old female history of excessive alcohol use, rheumatoid arthritis and prior seizure. 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 States for the last 5 days beginning on Saturday she has had anterior chest discomfort. Shortness of breath and exertional dyspnea. No cardiac history. No history of DVT or PE or risk factors. Denies any recent travel, surgery, or immobilization. No leg swelling. No calf pain. No hemoptysis. States she has not drank alcohol for the last 2 weeks. Did have nausea and vomiting recently but that is since stopped. I saw her over a year ago for upper GI bleed. She underwent an upper endoscopy and was discovered to have Latoya-Gauthier tear. Currently her hemoglobin was discovered to be 9.2. [facility] Medical History Alcoholism Physical exam, pre-employment Thrombocytopenia Iron deficiency anemia Alcoholic hepatitis Pancytopenia ETOH abuse Alcohol abuse Home Medications ?Medication ?Instructions ?Recorded ?Last Taken ?Type multivitamin 1 tab PO DAILY vitamin #30 tabs 07/18/22 03/18/24 Rx Lactobacillus acidophilus 10 10,000 mmu cells PO DAILY 03/19/24 03/18/24 History billion cell capsule (Probacap) supplement hydroxyzine pamoate 25 mg capsule 25 mg PO Q6H PRN PRN insomnia 03/19/24 Unknown History melatonin 5 mg capsule 5 mg PO QHS sleep 03/19/24 03/18/24 History multivitamin with minerals 1 tab PO DAILY vitamin 03/19/24 03/18/24 History (Hair,Skin and Nails tablet) vitamin E 268 mg (400 unit) capsule 268 mg PO DAILY vitamin 03/19/24 03/18/24 History cefdinir 300 mg capsule 300 mg PO BID #2 caps 03/21/24 Unknown Rx ferrous gluconate 324 mg (38 mg 324 mg PO DAILY #30 tabs 03/21/24 Unknown Rx iron) tablet pantoprazole 40 mg tablet,delayed 40 mg PO DAILY #30 tabs 03/21/24 Unknown Rx release (Protonix) Allergy/AdvReac Type Severity Reaction Status Date / Time No Known Allergies Allergy Verified 03/19/24 09:24 Family History Other Cancer Heart disease Surgical History History of tonsillectomy Social History household members: none housing: house 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 Smoking Status: Never smoker alcohol intake: current alcohol intake frequency: 3 or more drinks per day Previous attempts at quittin details: Patient is currently drinking approximately 2 L of vodka a day substance use type: does not use ROS Constitutional Constitutional: Reports fatigue; Denies chills, fever(s) or malaise Eyes Eyes: Denies blurry vision ENT HEENT: Denies headache(s) or nasal discharge Cardiovascular Cardiovascular: Reports dyspnea on exertion; Denies chest pain or syncope Respiratory/Chest Respiratory/Chest: Denies cough, shortness of breath at rest or shortness of breath with exertion Gastrointestinal Gastrointestinal: Denies constipation, diarrhea, nausea or vomiting Genitourinary Genitourinary: Reports other Details: Menorrhagia ; Denies dysuria Neurologic Neurologic: Denies focal weakness, numbness or tremor(s) Psychiatric Psychiatric: Denies anxiety or depression Physical Exam Const alert, oriented x3, no apparent distress and healthy appearing General Appearance: cooperative GI normal to inspection, nondistended, normoactive bowel sounds, soft to palpation, non-tender and non-distended Percussion: normal to percussion Rectal Exam: deferred Lab / Micro Data 03/21/24 06:40 03/21/24 06:40 Labs: Laboratory Results - last 24 hr 03/19/24 09:58: Diff Path Review Reviewed 03/20/24 07:12: HCG Beta Subunit Cancelled 03/20/24 13:35: Urine Test Negative 03/20/24 19:19: Hgb 9.8 L, Hct 30.7 L 03/21/24 06:40: WBC 5.9, RBC 3.77 L, Hgb 9.7 L, Hct 30.9 L, MCV 82.0, MCH 25.7 L , MCHC 31.4 L, RDW Std Deviation 55.6 H, RDW Coeff of Govind 18.9 H, Plt Count 257, MPV 9.1, Immature Gran % (Auto) 0.700, Neut % (Auto) 70.6 H, Lymph % (Auto) 19.1, [place] % (Auto) 7.7, Eos % (Auto) 1.0, Baso % (Auto) 0.9, Absolute Neuts (auto) 4.1, Absolute Lymphs (auto) 1.12, Nucleated RBC % 0, Sodium 140, Potassium 3.7, Chloride 108 H, Carbon Dioxide 26.0, Anion Gap 5, BUN 5 L, C reatinine 0.54 L, Estim Creat Clear Calc 118.14, Est GFR (MDRD) Af Amer 159, Est GFR (MDRD) Non-Af 131, BUN/Creatinine Ratio 9.3 L, Glucose 93, Calcium 9.4 Micro: Microbiology 03/20/24 13:35 Urine, Midstream Urine Culture - Preliminary Presumptive E. coli 03/20/24 22:39 Stool Stool Occult Blood (BROCK) - Final Occult Blood Positive Rhythm Strip Rhythm Strip: Sinus Tach Rate: 106 Ectopy: None Imaging Radiology Impression Transvaginal US 03/20/24 10:13 IMPRESSION: Heterogeneous appearance of the myometrium. Thickened endometrium. Electronically Signed: River Ho MD at 15:16 EST , Assessment & Plan Assessment/Plan (1) Acute anemia: PLAN: There is high suspicion that it is secondary to heavy vaginal bleeding. Patient is eating without any problems. She denies any melanotic stool. Her hemoglobin is going up. She is on appropriate medical therapy for possible acute GI blood loss. Since she does have history of anemia secondary to GI bleed and her hemoglobin does not recover she should probably have an upper and lower endoscopy this year because she will be a screening age. Charges/Coding Visit Charges Inpatient E&M: 69351 Init Hosp L3
--- NOTE | 2024-03-21 14:09 | DS.PCM_ITS ---
Providers Date of Admission: 03/19/24 Primary Care Physician: No Primary Care Phys Reason For Visit: ACUTE HEMORRHAGIV ANEMIA Diagnosis Discharge Diagnosis (1) Acute anemia: Status: Acute Code(s): D64.9 - Anemia, unspecified Medications at Discharge Home Medications multivitamin 1 tab PO DAILY vitamin #30 tabs 07/18/22 Lactobacillus acidophilus 10 billion cell capsule (Probacap) 10,000 mmu cells PO DAILY supplement 03/19/24 hydroxyzine pamoate 25 mg capsule 25 mg PO Q6H PRN PRN insomnia 03/19/24 melatonin 5 mg capsule 5 mg PO QHS sleep 03/19/24 multivitamin with minerals (Hair,Skin and Nails tablet) 1 tab PO DAILY vitamin 03/19/24 vitamin E 268 mg (400 unit) capsule 268 mg PO DAILY vitamin 03/19/24 cefdinir 300 mg capsule 300 mg PO BID #2 caps 03/21/24 ferrous gluconate 324 mg (38 mg iron) tablet 324 mg PO DAILY #30 tabs 03/21/24 pantoprazole 40 mg tablet,delayed release (Protonix) 40 mg PO DAILY #30 tabs 03/21/24 Hospital Course Operations None Procedures None Summary of Care Provided Minutes Spent on Discharge: 35 Hospital Course: Per HPI: MANDEEP MATAMOROS, is a 43 F who presents to the hospital with shortness of breath as well as chest pain for the last couple days. She says that she has been having very heavy menstrual bleeding for 12 days to the point where she was changing tampons 4 times an hour. She says it is extremely abnormal for her as she normally has a 4-day cycle where she has somewhat heavy bleeding on the first day that tapers off quickly. She says that she has stopped bleeding and does not think that she could be or miscarried. She is also complaining with some burning urination and thinks she might have a UTI. She denies any hematemesis or hematochezia or melena. She does have a previous history of alcohol abuse though she says her last drink was about 3 weeks ago. In her history she has had an EGD for Latoya-Gauthier tear that did demonstrate some erosive gastritis but she is denying any bloody bowel movements or hematemesis at this time. She was found to have a hemoglobin of 3.9 and was ordered 4 units of blood with 2 to be transfused and to to be held. She does have an appropriate reticulocyte response and she demonstrates a significant iron deficiency with an iron of 12 and a saturation of 2.7 and a ferritin of 8. Hospital course: 1. Iron deficiency anemia secondary to nutritional deficiencies as well as acute blood loss anemia from menorrhagia?43-year-old female presented to the hospital with 12 days of a very heavy period which is unusual for her. Urine tests were negative and transvaginal ultrasound demonstrated a thickened endometrium with heterogeneous myometrium. Directed that she follow- up with OB as an outpatient. She was transfused 4 units of PRBCs and given a dose of Venofer and her hemoglobin has continued to rise during her stay. She did have a positive Hemoccult however in the setting of a lack of chronic blood loss due to a GI source and the fact that her anemia is going up I elected to just discharge her with GI follow-up as an outpatient and start her on Protonix. She does have a previous history of gastritis. I recommend she follow-up with both [employer] and gastroenterology as an outpatient. I also recommend she follow- up with her PCP in 3 to 5 days to monitor her hemoglobin for her anemia. She does have a history of alcohol abuse but she says her last drink was 3 weeks ago, we did discuss how this could complicate her anemia. I discussed with her the plan for discharge and she expressed understanding and respect to going home and would like to go home today. Will continue with Protonix 40 mg p.o. daily as well as iron supplementation. She was given a days worth of cefdinir as there is a concern for possible UTI, urine culture does show E. coli but it is less than 1000 CFU. Physical Exam Narrative General: Alert, Oriented x3, Cooperative, No apparent distress HEENT: Atraumatic, PERRLA, EOMI, Normocephalic Oral: Moist Mucosa Neck: Supple, No JVD Lungs: Diminished, Normal air movement, No rhonchi, No wheeze, No rales Cardiovascular: Regular rate, Regular Rhythm, Normal S1, Normal S2, No murmurs Abdomen: Soft, Non Tender, Non-Distended, No Hepato-splenomegaly Extremities: No edema Skin: No rashes, No breakdown Musculoskeletal: No Tenderness to Palpation of Joints or Extremities Neurological: No focal neurological deficits, Motor Exam 5/5 strength throughout, Sensory exam intact to light touch and pain Psych/Mental Status: Normal Affect, Appropriate Weight / BMI Weight Weight: 124 lb 1.6 oz Body Mass Index (BMI) 20.6 ABG / Lab / Microbiology Data 03/21/24 06:40 03/21/24 06:40 Laboratory: Laboratory Results - last 24 hr 03/19/24 09:58: Diff Path Review Reviewed 03/20/24 19:19: Hgb 9.8 L, Hct 30.7 L 03/21/24 06:40: WBC 5.9, RBC 3.77 L, Hgb 9.7 L, Hct 30.9 L, MCV 82.0, MCH 25.7 L , MCHC 31.4 L, RDW Std Deviation 55.6 H, RDW Coeff of Govind 18.9 H, Plt Count 257, MPV 9.1, Immature Gran % (Auto) 0.700, Neut % (Auto) 70.6 H, Lymph % (Auto) 19.1, [place] % (Auto) 7.7, Eos % (Auto) 1.0, Baso % (Auto) 0.9, Absolute Neuts (auto) 4.1, Absolute Lymphs (auto) 1.12, Nucleated RBC % 0, Sodium 140, Potassium 3.7, Chloride 108 H, Carbon Dioxide 26.0, Anion Gap 5, BUN 5 L, C reatinine 0.54 L, Estim Creat Clear Calc 118.14, Est GFR (MDRD) Af Amer 159, Est GFR (MDRD) Non-Af 131, BUN/Creatinine Ratio 9.3 L, Glucose 93, Calcium 9.4 Microbiology: Microbiology 03/20/24 13:35 Urine, Midstream Urine Culture - Preliminary Presumptive E. coli 03/20/24 22:39 Stool Stool Occult Blood (BROCK) - Final Occult Blood Positive Radiography Diagnostic Testing: Radiology Impression Transvaginal US 03/20/24 10:13 IMPRESSION: Heterogeneous appearance of the myometrium. Thickened endometrium. Electronically Signed: River Ho MD at 15:16 EST , D/C Instructions Discharge Diet: No restrictions Call your doctor if you observe: Fever of 101 or Higher, Shortness of breath, Dizziness, Fainting spells, Swelling in the ankles, Chest pain and Increased palpitations (irregular heartbeat) DC O2, CPAP, BIPAP Needs Home O2 Discharge instructions: No Meaningful Use Info Meaningful Use Meaningful Use Diagnoses (Choose all that apply): None applicable Ischemic Stroke Statin Dosing Therapy Reference: STATIN DOSE THERAPY REFERENCE: * Patients > 75 years receive moderate or high dose statin therapy. * Patients 75 years or YOUNGER should receive HIGH intensity statin dose unless contraindicated. You will be required to document reason for non-treatment if statin daily dose does not meet guidelines. HIGH DOSE STATIN THERAPY DAILY Atorvastatin > than or = to 40 mg Rosuvastatin > than or = to 20 mg Amlodipine + Atorvastatin > than or = to 2.5/40 mg Ezetimibe + Simvastatin 10/80 mg Simvastatin 80mg Discharge Plan Admission Admit Date/Time: 03/19/24 10:52 Attending Provider: Armando Barrett Primary Care Provider: Care Physician,No Primary Instructions Additional Instructions / Restrictions: Follow-up with your PCP to monitor your blood work and make sure that your anemia resolves. You are severely iron deficient so continue with the iron tablets that have been prescribed. Follow-up with gastroenterology as an outpatient for further evaluation, your stools did come back positive for blood though the majority of your anemia was due to your menorrhagia and your anemia has continued to improve. Start your cefdinir tomorrow morning. Discharge Orders/Prescriptions Prescriptions: New pantoprazole [Protonix] 40 mg tablet,delayed release (DR/EC) 40 mg PO DAILY Qty: 30 0RF ferrous gluconate 324 mg (38 mg iron) tablet 324 mg PO DAILY Qty: 30 0RF cefdinir 300 mg capsule 300 mg PO BID Qty: 2 0RF Continued multivitamin Tablet 1 tab PO DAILY Qty: 30 0RF melatonin 5 mg capsule 5 mg PO QHS Probacap 10 billion cell capsule 10,000 mmu cells PO DAILY Hair,Skin and Nails Tablet 1 tab PO DAILY vitamin E 268 mg (400 unit) capsule 268 mg PO DAILY hydroxyzine pamoate 25 mg capsule 25 mg PO Q6H PRN PRN (Reason: insomnia) Discontinued ibuprofen [Advil] 200 mg tablet 400 mg PO Q6H PRN (Reason: fever or pain) Referrals / Follow Up: Sahra Godfrey DO [Med Staff - Active Staff] - Within 2 Weeks Ryan Zayas DO [Med Staff - Active Staff] - Within 1 Month Care Physician,No Primary [Primary Care Provider] - Disposition Disposition (needs filled in before D/C Order can be placed): Home, Self Care Charges/Coding Visit Charges Inpatient E&M: 55101 Disch Hosp >30min
== END 2024-03-21 11:51 | disposition home or self-care (01) | DRG 812 ==
LOC: ED 10:45 → PCU 14:53
PROVIDERS: Admitting Provider Family Medicine; Emergency Provider Emergency Medicine; Visit Provider Family Medicine
DX: D62 Acute posthemorrhagic anemia (principal); N39.0 Urinary tract infection, site not specified; B96.20 Unspecified Escherichia coli [E. coli] as the cause of diseases classified elsewhere; D50.9 Iron deficiency anemia, unspecified; E63.9 Nutritional deficiency, unspecified; N92.0 Excessive and frequent menstruation with regular cycle
CPT/HCPCS: 36415; 71046; 71275; 76830; 80048; 80053; 81001; 81025; 82274; 82728; 83540; 83550; 83690; 84484; 84702; 85014; 85018; 85025; 85045; 85379; 85610; 85730; 86644; 86850; 86900; 86901; 87086; 87088; 93005; 94640; 99285; P9016; P9040; Q9967; A4216; J2916